=== PATIENT | male | born 1940 | race Caucasian/White ===

== ENCOUNTER 2016-08-25 10:10 | Inpatient (IN) | payer MEDICARE, MEDICAID ==
[2016-08-25] VITALS (10 sets, daily range): BP systolic 106–141; BP diastolic 66–89; PULSE 96–149; RESP 18–24; O2SAT 91–99
[~2016-08-25] VITALS: Ht 180.3 cm; Wt 104.9 kg
[~2016-08-25 10:10] MED LIST: ASPI-973 PO; ATOR10TA66 PO; CALC0.257 PO; CARV6.252 PO; DOCU250C2 PO; FLUO20CA25 PO; FLUT16SP NS; FRSM80T PO; FURO80TA83 PO; HYDR-3740 PO; MULT-1018 PO; OMEP20CA11 PO; POTA10TA12 PO; VIT1TABL83 PO; ZYL100 PO
--- NOTE | 2016-08-25 10:36 | ED.REPORT ---
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 Over the last 2 weeks he has experienced mildly increased shortness of breath. About [address] through dialysis yesterday the patient noticed increased shortness of breath and a sharp pain to the left side of his chest. These symptoms improved after he was placed on oxygen. His breathing is exacerbated with exertion or lying flat. He has also noticed a cough with yellow sputum and lower extremity swelling. He denies fever, chills or current chest pain. He started dialysis 6 months ago and has missed a few appointments since onset. He dialyzes Tuesdays, , and Tuesday. Nursing Notes Stated Complaint: SOB Chief Complaint: Respiratory Complaints Nursing Notes Reviewed: Yes Allergies: Coded Allergies: Cephalosporins (Verified Allergy, Severe, THROAT CLOSES, 08/25/16) Penicillins (Verified Allergy, Severe, Throat closes, 08/25/16) meperidine (Verified Allergy, Severe, hallucinations, 08/25/16) morphine (Verified Allergy, Severe, anaphylatic shock, 08/25/16) Sulfa (Sulfonamide Antibiotics) (Verified Allergy, Intermediate, Nausea, Vomiting, 08/25/16) cephalexin (Verified Allergy, Unknown, Nausea,Vomiting, 08/25/16) Scheduled Allopurinol (Allopurinol) 100 Mg Tablet 100 MG PO DAILY Aspirin (Aspirin) 81 Mg Tablet 81 MG PO DAILY Atorvastatin Calcium (Atorvastatin Calcium) 10 Mg Tablet 10 MG PO HS Cinacalcet (Sensipar) 30 Mg Tablet 30 MG PO DAILY Fluoxetine (Fluoxetine) 20 Mg Capsule 20 MG PO BID Furosemide (Furosemide) 80 Mg Tab 80 MG PO BID Multivitamin (Multi Vitamin Daily) 1 Each Tablet 1 EACH PO DAILY Omeprazole (Omeprazole) 20 Mg Capsule.dr 20 MG PO BID Potassium Chloride ER (Potassium Chloride ER) 10 Meq Tablet 10 MEQ PO BID TAKE WITH FOOD Sevelamer Carbonate (Renvela) 800 Mg Tablet 800 MG PO TIDWM Vit B Comp/C/FA/Iron/Vit E (Vitamin B Complex Tablet) 1 Each Tablet 1 EACH PO DAILY Scheduled PRN Diphenoxylate/Atropine (Diphenoxylate-Atrop 2.5-0.025) 2.5 Mg Tablet 1 EACH PO QID PRN PRN For Diarrhea or Loose Stool Fluticasone Propionate (Fluticasone Propionate Nasal) 16 Gm [place].susp 2 SPRAY NS DAILY PRN PRN For Congestion Hydrocodone-Acetaminophen 10-325 mg (Hydrocodone-Acetaminophen 10-325 mg) 1 Tab Tablet 1 EA PO QID PRN PRN For Pain General Time Seen by MD: 10:28 Chief Complaint Other (shortness of breath) Hx Obtained From: Patient, Spouse Arrived By: Wheelchair Sudden in Onset?: No Onset Occurred: More than a week ago... Symptom Duration: Since onset Location: : Chest Quality: Painful, Sharp Severity: Current: No pain currently Severity: Maximum: Moderate Recent Healthcare: No recent hospitalization, Recent doctor visit Similar Sx Previous: Yes Past Medical History Past Medical History 1. Hypertension. 2. Distant history of dyslipidemia. 3. Left ventricular diastolic congestive heart failure 4. Atrial fibrillation/sick sinus syndrome. On March 24, 2010, a [employer] generator model number [id number], serial number [id number], was implanted; right atrial lead Medtronic model number 5076, serial number [id number]; right ventricular lead Medtronic, serial number [id number]. 5. Obstructive sleep apnea confirmed by sleep study (September 29, 2009). 6. Status post gastric stapling for morbid obesity. 7. Stage III/IV chronic kidney disease. 8. History of nephrolithiasis 9. Chronic urinary retention secondary to urethral stricture subsequent to post transurethral resection of the prostate. Reports: Congestive heart failure, Hypertension Past Surgical History Cardiac cath in 2011 Gastric bypass Bilateral extracorporeal shockwave Lithotripy in 2002. Transurethral resection of prostate Cholecystectomy Appendectomy Bilateral knee surguries Shoulder surgery Neck fusion in . 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 Physical Exam Vital Signs Vital Signs Date Time Temp Pulse Resp B/P Pulse Ox O2 Delivery O2 Flow Rate FiO2 08/25/16 14:50 115 08/25/16 14:45 124 24 132/75 98 08/25/16 14:11 149 24 134/71 98 Room Air 08/25/16 10:56 130 24 126/66 98 Room Air 08/25/16 10:19 37.3 141 24 122/77 97 Room Air Initial VS: Reviewed Head / Eyes: Atraumatic, Normocephalic, PERRL Neck: Supple, Non-tender, Full range of motion Abdomen / GI: Soft, Non-tender, No guarding, No rebound, No distention Lymphatic: No lymphadenopathy Extremities: Vascular intact, Neuro intact Skin: Warm, Dry, No cyanosis Neurologic: Alert, Oriented, Nonfocal Psychiatric: Mood/affect normal, Behavior normal, Normal thought content General/Constitutional: Awake, Alert, Well appearing Mouth: Positive: Mucous membranes dry Respiratory / Chest: Breath sounds = bilat, No respiratory distress Coarse breath sounds. Bibasilar crackles. Cardiovascular: Heart sounds NL, No gallop, No murmurs, No rubs, Peripheral circulation NL, Pulses = bilaterally Heart Rate / Rhythm: Positive: Irregular rhythm, Tachycardia Lower Extremity / Pelvis / MS: Neurologic intact, Vascular intact No calf tenderness. Bilateral lower extremity pitting edema to above the knees. Edema is symmetric. No lateralizing swelling. : indwelling Leung catheter with light yellow urine. Interpretation & Diagnostics Lab Results Interpretation Result Diagram: 08/25/16 0945 08/25/16 0945 Test 08/25/16 09:45 08/25/16 12:36 White Blood Count 6.0th/mm3 (3.8-10.1) Red Blood Count 2.53mil/mm3 (4.40-5.80) Hemoglobin 8.9g/dL (13.8-17.2) Hematocrit 26.6% (41.0-50.0) Mean Corpuscular Volume 105.1fL (81-100) Mean Corpuscular Hemoglobin 35.2pg (27.0-35.0) Mean Corpuscular Hemoglobin Concent 33.5% (32.0-37.0) Red Cell Distribution Width 18.8% (12.3-15.4) Platelet Count 311bil/L (150-400) Neutrophils (%) (Auto) 74.5% (40-74) Lymphocytes (%) (Auto) 13.1% (14-46) Monocytes (%) (Auto) 11.9% (4-12) Eosinophils (%) (Auto) 0.3% (0-5) Basophils (%) (Auto) 0% (0-3) Prothrombin Time 12.0sec (8.1-12.5) Prothromb Time International Ratio 1.12ratio Sodium Level 132mEq/L (134-144) Potassium Level 4.0mEq/L (3.5-5.2) Chloride Level 96mEq/L (97-108) Carbon Dioxide Level 20mmol/L (18-29) Blood Urea Nitrogen 17mg/dL (8-27) Creatinine 2.58mg/dL (0.76-1.27) Estimat Glomerular Filtration Rate 26mL/min (>59) Glucose Level 100mg/dL (60-99) Calcium Level 8.0mg/dL (8.5-10.1) Magnesium Level 1.6mg/dL (1.6-2.6) Total Bilirubin 1.4mg/dL (0.0-1.2) Aspartate Amino Transf (AST/SGOT) 17U/L (0-50) Alanine Aminotransferase (ALT/SGPT) 11U/L (0-44) Alkaline Phosphatase 301U/L (25-160) Troponin T < 0.010ug/L (0.0-0.011) Pro-B-Type Natriuretic Peptide 5301pg/mL (0-486) Total Protein 6.2g/dL (6.4-8.4) Albumin 3.8g/dL (3.4-5.0) Thyroid Stimulating Hormone (TSH) 2.820uIU/mL (0.450-4.500) Free Thyroxine 1.25ng/dL (0.82-1.77) Phosphorus Level 3.4mg/dL (2.5-4.9) Procalcitonin 0.12ng/mL (See Comment) ECG Interpretation ECG Interpretation: Atrial fibrillation with a rate of [address] segment elevation No T wave abnormalities When compared to prior he is increasingly tachycardia though there are no other acute changes present. Time: 10:50 Interpreted by: ED physician X-Ray Chest Interpretation Chest Xray Interpretation: IMPRESSION: 1. Right basilar pneumonia with small right pleural effusion. Continued plain film surveillance is recommended to ensure resolution, and to exclude underlying or central malignancy. Dictated by: Aidee Mccarty M.D. on 08/25/2016 at 11:23 Interpretation / Wet Read by: Interpret - Radiologist Re-Eval/Medical Decision Med Decision/Clinical Course The patient is a 76 year old male with history of hypertension, congestive heart failure, urinary retention with a chronic indwelling Leung catheter, chronic kidney disease on hemodialysis, obstructive sleep apnea, and atrial fibrillation/sick sinus syndrome s/p pacemaker, who presents to the emergency department complaining of shortness of breath that worsened throughout the night. EKG demonstrated Afib with rapid ventricular response. He was hemodynamically stable. Chest x-ray showed possible right basilar pneumonia with small right pleural effusion and pulmonary edema. LABS: CBC: no leukocytosis, hct 26.6 at baseline, CMP: renal function at baseline, alkaline phosphatase 301, negative troponin, BNP 5301 Overall presentation seems most consistent with volume overload in s/o CHF, in dialysis dependent pt. He was treated with 80 mg IV Lasix and 10 mg IV diltiazem, he had improvement in his rate remained hemodynamically stable. Radiologist interpretation mentioned possible right lower lobe pneumonia however in my assessment of his chest x-ray and overall critical picture this seems more consistent with a pleural effusion and I am unconvinced of bacterial pneumonia. Therefore, I have opted to withhold antibiotics at this time. He admits to missing multiple dialysis appointments I suspect that he is becoming increasingly volume overloaded as a result of this. I feel that he would likely benefit from hemodialysis and ongoing diuresis. He was admitted to the hospitalist service for further management in stable condition. Source of Hx: Old records Time of Eval: 11:14 Re-Evaluation/Progress Note: Discussed plan for admission with the patient and his . All questions were addressed. Consultation : Referral / Consult Name: Jose Alberto Benz MD Consulted With: Hospitalist Requested Call at: 11:31 Call Returned at: 12:01 [facility] Worker: Will see patient, Agrees with eval, Agrees with plan, Accepts admit Counseled Regarding: Diagnosis, Lab results, Need for admission Discharge & Departure Primary Impression: CHF (congestive heart failure) Congestive heart failure type: unspecified congestive heart failure type Congestive heart failure chronicity: unspecified congestive heart failure chronicity Qualified Code: I50.9 - Heart failure, unspecified Additional Impressions: Fluid overload Hypervolemia type: unspecified Qualified Code: E87.70 - Fluid overload, unspecified ESRD (end stage renal disease) Pneumonia Pneumonia type: due to unspecified organism Laterality: right Lung location : lower lobe of lung Qualified Code: J18.9 - Pneumonia, unspecified organism Pleural effusion Disposition: ADMITTED TO HOSPITAL Discharge Condition All VS Reviewed: Yes Condition: Stable Referrals: Siddharth Torres MD (PCP) Crit Care Except Billable Proc Time Spent: 135-164 minutes Services Performed: Patient management by me, Time spent at bedside, Reviewing test results, Reviewing imaging, Discussing patient care, Documentation in record, Time with fam/surrogate Scribe Attestation Portions of this note were transcribed by Tasha Navas. I, Dr. Dahl personally performed the history, physical exam and medical decision-making; I reviewed and confirmed the accuracy of the information in the transcribed note. Signed by: Will Wagoner, 08/25/2016 and 1440. copies to: Siddharth Torres MD, Beck O MD Aug 25, 2016 10:36 Tasha Navas Aug 25, 2016 10:57
[2016-08-25 11:04] LABS: BASOPHILS % (AUTO) 0 % (0-3); EOSINOPHILS % (AUTO) 0.3 % (0-5); MONOCYTES % (AUTO) 11.9 % (4-12); Mean Corpuscular Hemoglobin 35.2 pg (27.0-35.0); Mean Corpuscular Volume 105.1 fL (81-100); NEUTROPHILS % (AUTO) 74.5 % (40-74); Platelet Count 311 bil/L (150-400)
[2016-08-25] MEDS ORDERED: Furosemide 10 mg/mL 10 mL Inj IVPUSH ONE (11:20)
[2016-08-25] MEDS ORDERED: Alum-Mag Hydrox-Simeth 30 mL Suspension PO PRN (11:20)
[2016-08-25] MEDS ORDERED: Ondansetron 2 mg/mL 2 mL Inj IVPUSH PRN (11:20)
[2016-08-25 11:21] LABS: INR 1.12 ratio
--- NOTE | 2016-08-25 11:25 | DRSVH ---
PROCEDURE: X-RAY CHEST ONE VIEW, PORTABLE ([id number]) INDICATIONS: SHORTNESS OF BREATH TECHNIQUE: One view of the chest was acquired. COMPARISON: [facility], CR, XR CHEST 2V AP/PA AND LAT, 03/03/2016, 10:33 AM. [facility], CR, XR CHEST 1VW (PORTABLE), 06/19/2015, 12:17. [facility], CR, CHEST 1VW (PORTABLE), 10/10/2014, 0:14. [facility], CR, CHEST 1VW (PORTABLE), 07/10/2014, 15:41. FINDINGS: Surgical changes and devices: Left-sided pacer. Low anterior cervical fusion has been performed. Lungs and pleura: No pneumothorax. Small right pleural effusion. Moderate right basilar airspace [place]. Mediastinum: Mediastinal contours appear normal. Heart size is normal. Bones and chest wall: No suspicious bony lesions. Overlying soft tissues appear unremarkable. IMPRESSION: 1. Right basilar pneumonia with small right pleural effusion. Continued plain film surveillance is re commended to ensure resolution, and to exclude underlying or central malignancy. Dictated by: Aidee Mccarty M.D. on 08/25/2016 at 11:23 Approved by: Aidee Mccarty M.D. on 08/25/2016 at 11:23
[2016-08-25 11:40] LABS: Magnesium 1.6 mg/dL (1.6-2.6)
[2016-08-25 11:44] LABS: TROPONIN T < 0.010 ug/L (0.0-0.011)
[2016-08-25] MEDS ORDERED: Polyethylene Glycol (PEG) 17 Gm Powder PO PRN (12:30)
[2016-08-25] MEDS ORDERED: Diltiazem 5 mg/mL 5 mL Inj IVPUSH ONE ×2 (12:30→16:50)
[2016-08-25] MEDS ORDERED: ZYL100 PO (15:07)
[2016-08-25] MEDS ORDERED: LOM PO (15:11)
[2016-08-25] MEDS ORDERED: SEVE800T7 PO (15:11)
[2016-08-25] MEDS ORDERED: CINA30TA PO (15:11)
--- NOTE | 2016-08-25 15:14 | PCM.CHPMED ---
Subjective Date of Service: Aug 25, 2016 Provider requesting consult: Jose Alberto Benz MD Primary Physician: Admitting Physician: Primary Care Physician: Siddharth Torres MD Attending Physician: Chief Complaint: Chief Complaint: NEPHROLOGY CONSULTATION ESRD on HD History of Present Illness: This is a 76 year old man with past medical history significant for hypertension , HFpEF, chronic urinary retention with a chronic indwelling suprapubic Leung catheter, JAMIE, Atrial fibrillation s/p pacemaker placement, as well as ESRD on HD who is presenting with shortness of breath and lower extremity edema x 2 weeks. The nephrology service is consulted for management of the patient's ESRD. The etiology of the ESRD is uncertain but likely due to hypertensive nephropathy. The patient has started HD about 6 months ago and has missed a few days. He missed a dialysis day last week on Tue. His normal dialysis schedule is TThS. His tread builder is Dr. Burroughs. Over the last 2 weeks the patient has noticed progressively worse bilateral lower extremity edema and has not been able to lay flat due to shortness of breath. He normal does not have any orthopnea. His most recent ECHO showed an EF of 55% with moderate and E/E' 15.2. The patient normally makes about 1.2-1.5 L of urine as measured by his Leung. In the ED he was saturating 98% on room air. He also complains of a cough with yellow sputum but denies any fevers or chills but does note myalgias and arthralgias. Review of Systems: ROS is negative except as noted above in the HPI. PMH Past Medical History 1. Hypertension. 2. Distant history of dyslipidemia. 3. Left ventricular diastolic congestive heart failure 4. Atrial fibrillation/sick sinus syndrome. On March 24, 2010, a [employer] generator model number [id number], serial number [id number], was implanted; right atrial lead Medtronic model number 5076, serial number [id number]; right ventricular lead Medtronic, serial number [id number]. 5. Obstructive sleep apnea confirmed by sleep study (September 29, 2009). 6. Status post gastric stapling for morbid obesity. 7. Stage III/IV chronic kidney disease. 8. History of nephrolithiasis 9. Chronic urinary retention secondary to urethral stricture subsequent to post transurethral resection of the prostate. Bedside Blood Glucose: 98 Surgical History Cardiac cath in 2011 Gastric bypass Bilateral extracorporeal shockwave Lithotripy in 2002. Transurethral resection of prostate Cholecystectomy Appendectomy Bilateral knee surgeries Shoulder surgery Neck fusion in . Home Medications Scheduled Allopurinol (Allopurinol) 100 Mg Tablet 50 MG PO DAILY Aspirin (Aspirin) 81 Mg Tablet 162 MG PO DAILY Atorvastatin Calcium (Atorvastatin Calcium) 10 Mg Tablet 10 MG PO HS Calcitriol (Rocaltrol) 0.25 Mcg Capsule 1 MCG PO DAILY Take 2 0.5 mcg tablets once daily. Carvedilol (Carvedilol) 6.25 Mg Tablet 6.25 MG PO BID Fluoxetine (Fluoxetine) 20 Mg Capsule 20 MG PO BID Furosemide (Furosemide) 80 Mg Tab 80 MG PO QAM Furosemide (Lasix) 80 Mg Tablet 80 MG PO QPM Multivitamin (Multi Vitamin Daily) 1 Each Tablet 1 EACH PO DAILY Omeprazole (Omeprazole) 20 Mg Capsule.dr 20 MG PO BID Potassium Chloride ER (Potassium Chloride ER) 10 Meq Tablet 10 MEQ PO DAILY TAKE WITH FOOD Vit B Comp/C/FA/Iron/Vit E (Vitamin B Complex Tablet) 1 Each Tablet 1 EACH PO DAILY Scheduled PRN Docusate Sodium (Docusate Sodium) 250 Mg Capsule 250 MG PO BID PRN PRN For Constipation Fluticasone Propionate (Fluticasone Propionate Nasal) 16 Gm [place].susp 2 SPRAY NS DAILY PRN PRN For Congestion Hydrocodone-Acetaminophen 10-325 mg (Hydrocodone-Acetaminophen 10-325 mg) 1 Tab Tablet 1 TAB PO QID PRN PRN For Pain Allergies: Coded Allergies: Cephalosporins (Verified Allergy, Severe, THROAT CLOSES, 08/25/16) Penicillins (Verified Allergy, Severe, Throat closes, 08/25/16) meperidine (Verified Allergy, Severe, hallucinations, 08/25/16) morphine (Verified Allergy, Severe, anaphylatic shock, 08/25/16) Sulfa (Sulfonamide Antibiotics) (Verified Allergy, Intermediate, Nausea, Vomiting, 08/25/16) cephalexin (Verified Allergy, Unknown, Nausea,Vomiting, 08/25/16) Family History Family History No kidney disease Social History Hx Alcohol Use: NoHx Substance Use: NoHx Tobacco Use: Yes (chew 1 can q 4 day ) Smoking Status: Former Smoker Exam Vital Signs Vital Sign - Last Date Time Temp Pulse Resp B/P Pulse Ox O2 Delivery O2 Flow Rate FiO2 08/25/16 14:50 115 08/25/16 14:45 24 132/75 98 08/25/16 14:11 Room Air 08/25/16 10:19 37.3 General: Alert, Oriented X3, Cooperative, Mild Distress Head: Normal Eyes: PERRLA, EOMI Mouth: Mucous Membr Moist/[place] Chest & Lungs: Coarse breath sounds Cardiovascular: Normal S1, Other (tachycardic, crescendo-decrescendo murmur) Abdomen: Tender (mildly), Non-distended, Benign, No masses, Soft, Obese Genitourinary: Leung Present (clear yellow urine, ~200 cc) Extremities: Edema (pitting, bilateral legs) Neurological: Grossly Neurologically Intact, Cranial Nerves 2-12 Intact, Normal Speech Lab and Diagnostics Result Diagram: 08/25/16 0945 08/25/16 0945 X-Rays, CTs and MRIs CXR with evidence of fluid overload and pulmonary edema. Cephalization noted, fluid in the fissure noted. Increased interstitial markings and R sided pleural effusion. Assessment & Plan Assessment This is a 76 year old man with past medical history significant for hypertension , HFpEF, chronic urinary retention with a chronic indwelling suprapubic Leung catheter, JAMIE, Atrial fibrillation s/p pacemaker placement, as well as ESRD on HD who is presenting with shortness of breath and lower extremity edema x 2 weeks. ESRD on HD -We will go ahead and dialyze the patient today for a 2 hr session and take UF off -He is obviously fluid long and this is the likely etiology of his SOB Hypertension -Continue home medications Hypervolemic hyponatremia -Secondary to inadequate dialysis Macrocytic anemia -Chronic -Macrocytosis worsening -Will order iron studies, folate and B12 Thank you for allowing us to participate in the care of this patient. We will follow along with you. Problems: Sonal Martinez DO Aug 25, 2016 15:14 Lino Rahman MD Aug 26, 2016 15:52
[2016-08-25] MEDS ORDERED: levoFLOXacin Inj 750 MG in IV Premix 1 EACH IV SCH (15:30)
--- NOTE | 2016-08-25 18:31 | PCM.HPMED ---
Subjective Date of Service Aug 25, 2016 Primary Provider: Admitting Physician: Jose Alberto Benz MD Primary Care Physician: Siddharth Torres MD Attending Physician: Jose Alberto Benz MD Admit Status: From the Emergency Department, Admit to Red Team Chief Complaint: Cough and dyspnea/1 day Orthopnea/one day History of Present Illness: 76-year-old gentleman with past medical history of diastolic CHF, atrial fibrillation not on anticoagulation, hyperlipidemia, sick sinus syndrome status post pacemaker, hypertension,JAMIE,ESRD on HD TTS for the last 6 months, indwelling suprapubic catheter, history of recurrent nephrolithiasis came to the emergency room due to dyspnea, cough and orthopnea of one day. Patient states he had his usual dialysis yesterday and went home. He usually has some dyspnea on day of dialysis which resolves after dialysis but yesterday continued to have dyspnea after dialysis. He had cough productive of yellowish sputum since yesterday. He also had orthopnea of 3 pillow and was unable to lie flat last night. He usually uses one pillow. He did not miss dialysis for the last 1 week. He missed a session of dialysis the week prior. He had dialysis yesterday and his usual 2+ fluid was removed. He continues to make urine. Did not notice any change in urine output. He takes Lasix 80 mg by mouth twice a day. Did not miss any dose He has history of atrial fibrillation was initially on warfarin but discontinued due to multiple bleeding episodes during dialysis access. Currently on aspirin 81 mg daily. Not on any beta dyllan or CCB. He denies fever. Denies chest pain. Denies palpitation ED course : Tachypneic at 24, heart rate 141, afebrile, BP 122/6 0.7, saturating and 97% on RA Hemoglobin 8.9, sodium 132, K 4, bicarbonate 20, Ten Sleep 17, creatinine 2.58, troponins negative, TB 1.4, alkaline phosphatase 31 EKG rapid A. fib at 126, chest x-ray right basilar pneumonia with right pleural effusion An dose of Lasix IV given. Hospitalist service requested for fluid overload. Review of Systems: A comprehensive review of systems performed, and positives and negatives included in history of present illness Allergies Coded Allergies: Cephalosporins (Verified Allergy, Severe, THROAT CLOSES, 08/25/16) Penicillins (Verified Allergy, Severe, Throat closes, 08/25/16) meperidine (Verified Allergy, Severe, hallucinations, 08/25/16) morphine (Verified Allergy, Severe, anaphylatic shock, 08/25/16) Sulfa (Sulfonamide Antibiotics) (Verified Allergy, Intermediate, Nausea, Vomiting, 08/25/16) cephalexin (Verified Allergy, Unknown, Nausea,Vomiting, 08/25/16) Home Medications Aspirin 81 mg daily Fluoxetine 20 mg twice daily B complex daily KCl 10 meq 2 times daily Renelva 800 mg 3 times daily with meals Omeprazole 20 mg by mouth. 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 patient in hospital bed. 45 degree elevated HEENT: Head is normocephalic atraumatic, Pupils equal and reactive, extraocular movements intact, Lungs right lung basilar crackles and rhonchi Heart rapid A. fib, rate 146 at time of examination Abdomen soft nontender without hepatosplenomegaly Extremities pulses are present dorsalis pedis posterior tibialis and radial. Right arm AV fistula with brui Psych alert and oriented to person place and time Neuro cranial nerves II through XII are grossly intact Lymph: There is no lymphadenopathy appreciated in the cervical supra infraclavicular regions : Suprapubic catheter draining clear urine Lab and Diagnostics Result Diagram: 08/25/16 0945 08/25/16 0945 X-Rays, CTs and MRIs Chest x-ray IMPRESSION: 1. Right basilar pneumonia with small right pleural effusion. Continued plain film surveillance is recommended to ensure resolution, and to exclude underlying or central malignancy. Dictated by: Aidee Mccarty M.D. on 08/25/2016 at 11:23 12-lead ECG rapid afib rate 126 Assessment & Plan 76-year-old gentleman with past medical history of diastolic CHF, atrial fibrillation not on anticoagulation, hyperlipidemia, sick sinus syndrome status post pacemaker, hypertension,JAMIE,ESRD on HD TTS for the last 6 months, indwelling suprapubic catheter, history of recurrent nephrolithiasis came to the emergency room due to dyspnea, cough and orthopnea of one day. # Dyspnea,acute ,poa -Multifactorial( worsening diastolic CHF due to rapid A. fib/possible fluid overload, suspected pneumonia) -Rate controlled Cardizem drip, started empiric antibiotic pending more data, consulted nephrology and he will get dialysis # Afib with RVR ,acute -Patient rate controlled without medications at baseline -Gave 2 doses of Cardizem push, HR not controlled,will start Cardizem drip at 7.5mg /h. Titrate to keep heart rate < 100 -not a candidate for anticoagulation due to history of bleeding. Continue aspirin -Transition to BB upon discharge -TFT WNL ,troponin negative #Acute on chronic Diastolic CHF due to rapid Afib -Rate control as above,HD as above, continue home Lasix 80 mg by mouth twice a day -Daily weights,I/O - will consider echocardiogram once heart rate is controlled # suspected pneumonia -Patient came with productive cough. Afebrile, no leukocytosis, procalcitonin 0.12,cxr suspected right lower lobe pneumonia. Rhonchi on right lower chest -Unclear if pneumonia has triggered rapid afib -will continue with azithromycin and ceftriaxone for today. Blood and urine culture sent. Will repeat Procalcitonin and stop antibiotics if no further evidence of infection #ESRD on HD -he will get extra HD today -Continue home Lasix,Renelva,sensipar -Consulted nephrology # macrocytic anemia -multifactorial ( anemia of ESRD -iron panel,b12,folate requested by nephrology # Elevated Tbili and alkaline phos -possibly due to liver congestion -will monitor ,will consider imaging if remains high Chronic medical issues # indwelling suprapubic catheter,recently changed .u/a, urine culture requested #gout, continue allopurinol #JAMIE not on CPAP, address outpatient # SSS s/p PPM,stable Discussed CODE STATUS, he is full code Patient admitted under inpatient status with expected length of stay > 2 midnights for severity of present symptoms, complexities of treatment plan and risk for adverse events Time spent 55 minutes copies to: Siddharth Torres MD, Melaku MD Aug 25, 2016 18:31
--- NOTE | 2016-08-25 18:52 | NUR ---
sent directly to dialysis from ER plan was to admit to room 246-1 however his HR began to increase again, 130-140s, Dr Benz wanted to start Diltiazem gtt, so gave Cardizem 10mg while on dialysis, after receiving 10mg IV his rate decreased to 110s again. but quickly increased back to 120s. He will transfer to room 2009 from dialysis and be started on Diltiazem gtt for rate control
--- NOTE | 2016-08-25 19:00 | NUR ---
Dialysis note: 2 hrs 45 min PUF. 4000 ml net UF. Left upper arm fistula; had access problems, Dr Nelson notified. Pls see DTR for VS details. Qb 200-250. No heparin given. O2 @ 2L via NC on. Tolerated tx. Fistula needle sites clotted w/in 10 min.
[2016-08-25] MEDS: Diltiazem Inj 125 MG in 0.9% Sodium Chloride 100 ML, Pharmacy To Mix 1 EA IV SCH (19:58)
[2016-08-25] MEDS: HYDROcodone-APAP 10-325 mg PO PRN (21:27)
[2016-08-26] VITALS (13 sets, daily range): BP systolic 96–112; BP diastolic 50–74; PULSE 80–124; RESP 13–21; O2SAT 97–100
[2016-08-26] MEDS: levoFLOXacin Inj 750 MG in IV Premix 1 EACH IV SCH (01:36)
[2016-08-26 03:14] LABS: BASOPHILS % (AUTO) 0 % (0-3); EOSINOPHILS % (AUTO) 0.1 % (0-5); MONOCYTES % (AUTO) 10.6 % (4-12); Mean Corpuscular Volume 110.5 fL (81-100); NEUTROPHILS % (AUTO) 67.7 % (40-74); Platelet Count 237 bil/L (150-400)
[2016-08-26] MEDS: HYDROcodone-APAP 10-325 mg PO PRN (03:18)
[2016-08-26] MEDS: Benzocaine-Menthol Lozenge 2/Pkg PO PRN ×2 (03:54→11:58)
[2016-08-26 05:11] LABS: APPEARANCE,URINE CLOUDY (CLEAR,HAZY); COLOR,URINE YELLOW (YELLOW); OCCULT BLOOD,URINE SMALL (NEGATIVE); PH,URINE 7.5 (5.0-8.0); UROBILINOGEN,URINE NORMAL (NORMAL)
[2016-08-26 05:12] LABS: ICTOTEST,URINE POSITIVE (Negative)
[2016-08-26 05:16] LABS: Magnesium 1.6 mg/dL (1.6-2.6)
[2016-08-26] MEDS: Pantoprazole 40 mg ER24 Tablet PO SCH (05:51)
--- NOTE | 2016-08-26 07:31 | NUR ---
Transfer to [facility] Pt transferred to [facility] room 2008 at approx. 2000; report received from Vivian Dennis; all belongings transferred with patient. Home medications reviewed and sent to pharmacy. Diltiazem gtt in place at 7.5mg for afib/RVR 120s; tele throughout shift afib 80s. Pt reports chronic pain to back and exacerbated by beds at 7/10 to assessment, Vicodin Q4H given x2, pt reports relief upon reassessment. UA sent. PCR order obtained for pt's ongoing diarrhea, no further diarrhea after order placed. Pt educated to purpose of stool testing, states "Oh, diarrhea is normal for me. I had a gastric bypass surgery 20 some years ago, and then had it reversed, and then had my gut stapled, so it's normal for me." Pt educated to rationale for r/o C.diff, verbalized understanding. MP30 in place, VSS, 2L NC applied this AM per pt request, SPO2 approx. 98%.
[2016-08-26] MEDS ORDERED: Non-Formulary Medication (Vit B Comp/C/FA/Iron/Vit E (Vitamin B Complex Tablet) 1 EACH) PO SCH (08:30)
[2016-08-26] MEDS: Diltiazem Inj 125 MG in 0.9% Sodium Chloride 100 ML, Pharmacy To Mix 1 EA IV SCH (12:34)
[2016-08-26] MEDS: 0.9% Sodium Chloride 250 ML IV SCH (15:10)
[2016-08-26] MEDS ORDERED: 0.9% Sodium Chloride 1,000 ML ONE (16:04)
--- NOTE | 2016-08-26 16:08 | PCM.PNMED ---
Subjective Date of Service Aug 26, 2016 Subjective He is seen during HD. feeling better overall. Hb 7.0, 2 units of PRBC will be transfused while on HD. Exam Vital Signs Vital Sign - Last Date Time Temp Pulse Resp B/P Pulse Ox O2 Delivery O2 Flow Rate FiO2 08/26/16 12:03 36.7 83 20 108/65 99 Nasal Cannula 2.00 Intake and Output 08/25/16 08/25/16 08/26/16 Cumulative From/Thru 15:00 23:00 07:00 08/25/16 10:19 - 08/26/16 06:01 Intake Total 1122 ml 1122 ml Output Total 200 ml 4000 ml 800 ml 5000 ml Balance -200 ml -4000 ml 322 ml -3878 ml Intake Oral 900 ml 900 ml IV Total 222 ml 222 ml Output Urine Total 200 ml 800 ml 1000 ml Ultrafiltrate 4000 ml 4000 ml # Bowel Movements 3 3 Exam General: Alert, Oriented X3, Cooperative, NAD, lying in bed comfortably. Head: Normal Eyes: PERRLA, EOMI Mouth: Mucous Membr Moist/[place] Chest & Lungs: Coarse breath sounds Cardiovascular: Normal S1, irregular rhythm Abdomen: nontender, Non-distended, Benign, No masses, Soft, Obese Genitourinary: suprapubic catheter placement Extremities: 2+ Edema (pitting, bilateral legs) Neurological: Grossly Neurologically Intact, Cranial Nerves 2-12 Intact, Normal Speech Lab and Diagnostics Result Diagram: 08/26/16 0300 08/26/16 0430 X-Rays, CTs and MRIs Chest x-ray IMPRESSION: 1. Right basilar pneumonia with small right pleural effusion. Continued plain film surveillance is recommended to ensure resolution, and to exclude underlying or central malignancy. Dictated by: Aidee Mccarty M.D. on 08/25/2016 at 11:23 12-lead ECG rapid afib rate 126 Assessment & Plan This is a 76 year old man with past medical history significant for hypertension , HFpEF, chronic urinary retention with a chronic indwelling suprapubic Leung catheter, JAMIE, Atrial fibrillation s/p pacemaker placement, as well as ESRD on HD who is presenting with shortness of breath and lower extremity edema x 2 weeks. 1. ESRD on HD TTS. He had only UF yesterday 4.2 L. 4hr, 3K, 35HCO3, DFR 600, poor blood flow, UF 3-4L. Revaclear,left AVF plan: fistulogram at 1200 08/27/16 2. Fluid overload. improving 3. Hypertension, volume related, improved. 4. Hypervolemic hyponatremia, Na 2 g per day, fluid restriction 1-1.5L per day if possible. 5. Macrocytic anemia, normal folate, vitB12 level. Low serum iron, low TIBC, low TSat, high ferritin. possible combined ANDRES and anemia of CKD. will give blood transfusion today with HD. Aranesp injection in am. 6. Afib with RVR, rate controlled. Lino Rahman MD Aug 26, 2016 16:08
--- NOTE | 2016-08-26 17:54 | NUR ---
Dialysis, Blood Transfusion Dialysis - He is currently receiving dialysis in his room. Blood Transfusion - His H/H this AM was 7.0/22.1. Asymptomatic other than appearing pale. Notified the MDs during rounds at [address] Sethi early to mid-afternoon. Only new orders at that time were to guaiac stools and continue to monitor. Once Nephrology has seen him Dr. Sethi ordered a blood type and cross and two units of PRBC. The units are currently being administered by the dialysis nurse with the first being started at 1700. Care continues. Addendum: 08/26/16 at 1803 by ELMIRA ENRIQUE RN He has been room air (98%) most of the day.
--- NOTE | 2016-08-26 19:30 | NUR ---
Dialysis note: 4 hrs tx. 4800 ml UF (4000 ml net + 800 ml for blood volume). Left upper arm fistula. Pls see DTR for VS details. Qb 300. No heparin given. O2 @ 2L via NC on. 2 units PRBC given with no problems. Tolerated tx, slept at intervals. Fistula needle sites clotted w/in 10 min.
--- NOTE | 2016-08-26 22:49 | PCM.PNMED ---
Subjective Date of Service Aug 26, 2016 Subjective 76-year-old gentleman with past medical history of diastolic CHF, atrial fibrillation not on anticoagulation, hyperlipidemia, sick sinus syndrome status post pacemaker, hypertension,JAMIE,ESRD on HD TTS for the last 6 months, indwelling suprapubic catheter, history of recurrent nephrolithiasis came to the emergency room due to dyspnea, cough and orthopnea of one day. Patient states he had increase orthopnea overnight. He had dialysis yesterday and his usual 2+ fluid was removed. He continues to make urine. He has history of atrial fibrillation was initially on warfarin but discontinued due to multiple bleeding episodes during dialysis access. Overnight Events. No acute events overnights. Mr. Jaswant Perez is resting in bed comfortably and in no acute distress. He reports feeling okay. The patient denies headache, dizziness, sore throat, cough , chest pain, shortness of breath, abdominal pain, nausea, vomiting, constipation, and diarrhea. The patient is voiding and eliminating without difficulty. The patient is ambulating without difficulty. Exam Vital Signs Vital Sign - Last Date Time Temp Pulse Resp B/P Pulse Ox O2 Delivery O2 Flow Rate FiO2 08/26/16 18:22 37.0 92 20 105/74 08/26/16 12:03 99 Nasal Cannula 2.00 Intake and Output 08/25/16 08/25/16 08/26/16 Cumulative From/Thru 15:00 23:00 07:00 08/25/16 10:19 - 08/26/16 06:01 Intake Total 1122 ml 1122 ml Output Total 200 ml 4000 ml 800 ml 5000 ml Balance -200 ml -4000 ml 322 ml -3878 ml Intake Oral 900 ml 900 ml IV Total 222 ml 222 ml Output Urine Total 200 ml 800 ml 1000 ml Ultrafiltrate 4000 ml 4000 ml # Bowel Movements 3 3 Exam General: No acute distress, well-developed, well-nourished, appropriately interactive HEENT: Normocephalic, atraumatic. External ears without defect. Pupils equal, round, and reactive to light and accommodation. Anicteric sclerae, moist conjunctivae, and no lid lag. Oropharynx free of erythema and cobble stoning with moist mucosa. Neck: Supple with full range of motion. No jugular venous distension. No bruits. No lymphadenopathy or thyromegaly. Cardiovascular: Regular rate and rhythm with no murmurs, rubs, or gallops appreciated Pulmonary: Clear to auscultation bilaterally with no crackles, wheezes, or rhonchi. Normal respiratory effort with no use of accessory muscles. Abdomen: Bowel tones present. Soft, nontender, nondistended. No hepatosplenomegaly or masses appreciated. Extremities: No clubbing, cyanosis, edema, or lymphadenopathy appreciated. Skin: Normal temperature, turgor, and texture; no rash, ulcers, or subcutaneous nodules appreciated. Neurological: Cranial nerves grossly intact. Normal muscle strength, tone, and bulk. Reflexes, coordination, and sensory function within normal limits. No known gait impairment. Psychiatric: Normal mood and affect. Alert and oriented to person, place, and time. IVs and Medications Medications Reviewed: Medications were reviewed in detail Lab and Diagnostics Result Diagram: 08/26/16 0300 08/26/16 0430 X-Rays, CTs and MRIs Chest x-ray IMPRESSION: 1. Right basilar pneumonia with small right pleural effusion. Continued plain film surveillance is recommended to ensure resolution, and to exclude underlying or central malignancy. Dictated by: Aidee Mccarty M.D. on 08/25/2016 at 11:23 12-lead ECG rapid afib rate 126 Assessment & Plan 76-year-old gentleman with past medical history of diastolic CHF, atrial fibrillation not on anticoagulation, hyperlipidemia, sick sinus syndrome status post pacemaker, hypertension,JAMIE,ESRD on HD TTS for the last 6 months, indwelling suprapubic catheter, history of recurrent nephrolithiasis came to the emergency room due to dyspnea, cough and orthopnea of one day. 1. Acute Dyspnea, present on admission, active. - Multifactorial( worsening diastolic CHF due to rapid A. fib/possible fluid overload, suspected pneumonia) - Possible Fluid overload consider ordering ECHO. - Rate controlled Cardizem drip, started empiric antibiotic pending more data, consulted nephrology and he will get dialysis - Will continue with azithromycin and ceftriaxone for today.and stop antibiotics if no further evidence of infection - CXR per above. - Viral respiratory PCR - pending. - Strep pneumo, legionella AG pending. - Sputum cx pending. - Procalcitonin pending. 2. End Stage renal disease, present on admission, Active. - Currently on HD Tu, th, Tue schedule. - Fistulogram at 1200 08/27/16 - Continue home Lasix,Renelva,sensipar - Consulted nephrology 3. Macrocytic anemia, - likely secondary to bone marrow suppression. - Normal folate, vitB12 level. - Low serum iron, low TIBC, low TSat, high ferritin. - Possible combined ANDRES and anemia of CKD. - Blood transfusion today with HD. 2 units PRBC's. - Aranesp injection in am. 4. Elevated Tbili and alkaline phos, present on admission. Active. - Possibly due to liver congestion - Will monitor ,will consider imaging if remains high 5. Acute on chronic Diastolic CHF due to rapid Afib, present on admission, active. - Rate control as above,HD as above, continue home Lasix 80 mg by mouth twice a day - Daily weights,I/O - will consider echocardiogram once heart rate is controlled 6. Hypertension, present on admission. Improving. 7. Hypervolemic hyponatremia, present on admission. Active. - Na 2 g per day, fluid restriction 1-1.5L per day if possible. 8. Acute Afib with RVR, present on admission, active. - Patient rate controlled without medications at baseline - Gave 2 doses of Cardizem push, HR not controlled,will start Cardizem drip at 7.5mg /h. Titrate to keep heart rate < 100 - not a candidate for anticoagulation due to history of bleeding. Continue aspirin - Transition to BB upon discharge - TFT WNL ,troponin negative Chronic medical issues indwelling suprapubic catheter,recently changed - UA pending. Gout, continue allopurinol Acetaminophen for mild pain when necessary. Bowel regimen Senna and MiraLAX scheduled and PRN. Zofran when necessary for nausea and vomiting. SubQ heparin held for now. SCDs in place. High-risk medications: Disposition: likely here for 1-2 more days. Will discharge home. Pain Evaluation: Adequate Pain Control Attending Statement The patient was seen and examined together with Dr. Vera on 08/26/2016 and I agree with the history, exam and plan as outlined in the note above. . ALYSON VERA DO Aug 26, 2016 19:23 Fabrice Mike MD Aug 27, 2016 14:23
[2016-08-27] VITALS (19 sets, daily range): BP systolic 98–124; BP diastolic 48–78; PULSE 85–108; RESP 16–25; O2SAT 93–97
[2016-08-27] MEDS: HYDROcodone-APAP 10-325 mg PO PRN ×2 (03:32→17:47)
[2016-08-27 04:06] LABS: BASOPHILS % (AUTO) 0.2 % (0-3); EOSINOPHILS % (AUTO) 0.4 % (0-5); MONOCYTES % (AUTO) 14.7 % (4-12); Mean Corpuscular Hemoglobin 34.3 pg (27.0-35.0); Mean Corpuscular Volume 102.5 fL (81-100); NEUTROPHILS % (AUTO) 62.8 % (40-74); Platelet Count 260 bil/L (150-400)
--- NOTE | 2016-08-27 05:25 | NUR ---
Pain / Telemetry Pt c/o 01/05 pain this AM x1, [place] administered with relief upon reassessment. Pt able to rest throughout shift, calls for needs. Tele afib 90s throughout shift, diltiazem gtt in place at 7.5ml/hr. VSS.
[2016-08-27] MEDS: Diltiazem Inj 125 MG in 0.9% Sodium Chloride 100 ML, Pharmacy To Mix 1 EA IV SCH (05:58)
[2016-08-27] MEDS: Pantoprazole 40 mg ER24 Tablet PO SCH (06:02)
[2016-08-27] MEDS ORDERED: Magnesium Sulf 2 Gm/50mL Water 2 GM in IV Premix 1 EACH IV ONE (07:50)
[2016-08-27] MEDS ORDERED: Darbepoetin Alfa 60 mCg/0.3 mL Inj IV ONE (08:30)
[2016-08-27] MEDS ORDERED: Diltiazem CD 120 mg ER24 Capsule PO ONE (09:10)
--- NOTE | 2016-08-27 10:06 | NUR ---
gave verbal consent to PATRICK
--- NOTE | 2016-08-27 10:06 | PCM.PNMED ---
Subjective Date of Service Aug 27, 2016 Subjective She states that he is feeling somewhat better. His story status is improved and he denies any current chest pain, shortness of breath, nausea or vomiting. Exam Vital Signs Vital Sign - Last Date Time Temp Pulse Resp B/P Pulse Ox O2 Delivery O2 Flow Rate FiO2 08/27/16 07:31 36.7 100 20 114/67 97 Room Air 08/26/16 12:03 2.00 Intake and Output 08/26/16 08/26/16 08/27/16 Cumulative From/Thru 15:00 23:00 07:00 08/25/16 10:19 - 08/27/16 06:31 Intake Total 1957 ml 1045 ml 4124 ml Output Total 5100 ml 100 ml 11222 ml Balance -3143 ml 945 ml -6076 ml Intake Oral 1460 ml 600 ml 2960 ml IV Total 197 ml 145 ml 564 ml Packed Cells 300 ml 300 ml 600 ml Output Urine Total 300 ml 100 ml 1400 ml Ultrafiltrate 4800 ml 8800 ml # Bowel Movements 0 2 5 Exam Neck supple without adenopathy thyromegaly or jugular venous distention. Lungs are clear to auscultation somewhat diminished. Heart was irregularly irregular. Abdomen was soft without any tenderness rebound guarding masses or hepatosplenomegaly. Extremities she has any clubbing cyanosis or edema. Skin turgor was good and there is no evidence of any rashes. Lab and Diagnostics Result Diagram: 08/27/16 0330 08/27/16 0330 X-Rays, CTs and MRIs Chest x-ray IMPRESSION: 1. Right basilar pneumonia with small right pleural effusion. Continued plain film surveillance is recommended to ensure resolution, and to exclude underlying or central malignancy. Dictated by: Aidee Mccarty M.D. 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 Will Ivey DO Aug 27, 2016 10:06
[2016-08-27] MEDS ORDERED: Heparin 1,000 Unit/mL 10 mL Inj ONE (10:25)
[2016-08-27] MEDS ORDERED: Heparin 5,000 Units/500 mL NS Premix IV ONE (10:25)
--- NOTE | 2016-08-27 10:52 | NUR ---
Social Work: Initial Assessment D: Per EMR review, pt is a 76 year old male admitted for ERSD, CHF, Fluid Overload. Pt is [employer] with no LTC insurance or VA benefits. PCP is Siddharth Torres MD. NOK/DPOA is Daysi Perez, , . Advanced directives in EMR. Readmit score is moderate, 4/8. CEMENT MIXER DRIVER met with pt at bedside. Sw role explained. See initial assessment. Pt lives in [place] with his . He is I at baseline and uses a cane for mobility. Pt states he owns a FWW which he uses on occasion but would like a 4WW one with a seat so that he can ambulate further distances. Pt has been SBA with ambulating during admission. CEMENT MIXER DRIVER discussed insurance coverage of DME, pt does not believe he has used his benefit for DME and understands that he only gets one piece of DME covered every 5 years. He would still like to pursue DME coverage through [employer]. CEMENT MIXER DRIVER requested order from MD and dictation in progress note for medical necessity along with PT eval for additional dictation/support. Pt states he has never had home health or been to skilled rehab in the past. Pt states that he is I and continue to drive. A: Pt who lives with spouse in [place]. P: Anticipate pt to discharge home; CEMENT MIXER DRIVER to fax prescription for 4WW along with supporting documentation once completed by ; AMARJIT Allen Addendum: 08/27/16 at 1101 by CHIQUI ZAVALA Amended: Links added.
--- NOTE | 2016-08-27 12:15 | NUR ---
Off unit Patient off unit to blood and plasma laboratory assistant for fistulagram.
[2016-08-27] MEDS ORDERED: 0.9% Sodium Chloride 500 ML ONE (12:33)
[2016-08-27] MEDS ORDERED: fentaNYL-PF 50 mCg/mL 2 mL Inj ONE (12:38)
[2016-08-27] MEDS: Benzocaine-Menthol Lozenge 2/Pkg PO PRN ×3 (14:02→22:20)
--- NOTE | 2016-08-27 14:56 | DRSVH ---
PROCEDURE: 1. Left upper extremity arteriovenous fistulogram. 2. Angioplasty of venous limb at the level of mid humerus. 3. Conscious sedation x40 minutes. INDICATIONS: Malfunctioning arteriovenous fistula. TECHNIQUE: Informed, written consent from the patient was obtained prior to the procedure. Patient wa s brought to the angiography suite, and conscious sedation was administered intravenously by [facility] staff, while continuous cardiorespiratory monitoring was performed. Maximal sterile barrier t echnique, hand hygiene, skin preparation, and sterile ultrasound technique (if ultrasound was utilize d) was followed. A mask, sterile gown, sterile gloves, a large sterile sheet, hand hygiene, and 2% ch lorhexidine or iodine was utilized for skin antisepsis. The left upper extremity was prepped and drap ed sterilely, and the skin and subcutaneous tissues overlying the peripheral aspect of the venous posadas b were infused with lidocaine. The peripheral aspect of the venous limb was accessed antegrade with a micropuncture set. Contrast was administered for arteriovenous fistulogram. Intravenous was administ ered. A Glidewire was advanced into the venous limb. A 6 [place] sheath was advanced, through which a 40 mm long balloon was advanced and was expanded to 9.2 mm diameter within the venous limb at the lev el of the midhumerus. Repeat arteriovenous fistulogram. Sheath removed and the venotomy closed with p urse string closure technique. FLUOROSCOPY TIME: 1.5 minutes COMPARISON: [facility], XA, ARTERIO VENOUS FISTULOGRAM (PNL), 05/26/2016, 10:51. FINDINGS: The arteriovenous anastomosis is widely patent. There is a prominent collateral structure arising from the peripheral aspect of the venous limb at the level of the distal humerus. There is re current moderate to high-grade stenosis within the venous limb at the level of the midhumerus, resolv ed following 9 mm angioplasty. Central draining venous structures are patent. IMPRESSION: 1. 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 2. Prominent venous collateral arising from the peripheral aspect of the venous limb. This could be e mbolized percutaneously if low flow is encountered clinically within the fistula. Dictated by: Aidee Mccarty M.D. on 08/27/2016 at 14:54 Approved by: Aidee Mccarty M.D. on 08/27/2016 at 14:54
[2016-08-27] MEDS: 0.9% Sodium Chloride 250 ML IV SCH (15:10)
--- NOTE | 2016-08-27 15:53 | NUR ---
PIO PT RECEIVED FROM WHEEL POLISHER AT 1340. LEFT ARM FISTULA WITH PURSESTRING HAS POSITIVE BRUIT AND RADIAL PULSE. NO BLEEDING. PT UNDERSTANDS TO KEEP LEFT ARM STRAIGHT FOR 2 HOURS. HE IS ALERT AND TAKING FLUIDS AND MEAL. PURSESTRING DISCONTINUED AT 1525, BANDAID APPLIED. C/D/I. PT, AND HIS NURSING CARE, WERE TRANSFERRED BACK TO ROOM 2008 AT 1545. RN TO RN BEDSIDE HAND OFF WAS DONE WITH SUKI Zarate RN.
--- NOTE | 2016-08-27 16:11 | NUR ---
eturned to floor Patient returned to unit via bed. Patient A&O x3. VSS. Denies all pain/discomfort. Patient ambulated to bathroom c SBA. Patient currently resting in bed, call light within reach and all needs met at this time.
--- NOTE | 2016-08-27 21:02 | PCM.PNMED ---
Subjective Date of Service Aug 27, 2016 Subjective 76-year-old gentleman with past medical history of diastolic CHF, atrial fibrillation not on anticoagulation, hyperlipidemia, sick sinus syndrome status post pacemaker, hypertension,JAMIE,ESRD on HD TTS for the last 6 months, indwelling suprapubic catheter, history of recurrent nephrolithiasis came to the emergency room due to dyspnea, cough and orthopnea of one day. Patient states he had increase orthopnea overnight. He had dialysis 08/26 and his usual 2+ fluid was removed. He continues to make urine. He has history of atrial fibrillation was initially on warfarin but discontinued due to multiple bleeding episodes during dialysis access. Overnight Events. No acute events overnights. Mr. Jaswant Perez is resting in bed comfortably and in no acute distress. He reports feeling okay. The patient denies headache, dizziness, sore throat, cough , chest pain, shortness of breath, abdominal pain, nausea, vomiting, constipation, and diarrhea. The patient is voiding and eliminating without difficulty. The patient is ambulating without difficulty although he thinks a walker would be beneficial . Exam Vital Signs Vital Sign - Last Date Time Temp Pulse Resp B/P Pulse Ox O2 Delivery O2 Flow Rate FiO2 08/27/16 17:32 36.6 99 20 124/74 96 Room Air 08/26/16 12:03 2.00 Intake and Output 08/26/16 08/26/16 08/27/16 Cumulative From/Thru 15:00 23:00 07:00 08/25/16 10:19 - 08/27/16 06:31 Intake Total 1957 ml 1045 ml 4124 ml Output Total 5100 ml 100 ml 22383 ml Balance -3143 ml 945 ml -6076 ml Intake Oral 1460 ml 600 ml 2960 ml IV Total 197 ml 145 ml 564 ml Packed Cells 300 ml 300 ml 600 ml Output Urine Total 300 ml 100 ml 1400 ml Ultrafiltrate 4800 ml 8800 ml # Bowel Movements 0 2 5 Exam General: No acute distress, well-developed, well-nourished, appropriately interactive HEENT: Normocephalic, atraumatic. External ears without defect. Pupils equal, round, and reactive to light and accommodation. Anicteric sclerae, moist conjunctivae, and no lid lag. Oropharynx free of erythema and cobble stoning with moist mucosa. Neck: Supple with full range of motion. No jugular venous distension. No bruits. No lymphadenopathy or thyromegaly. Cardiovascular: Regular rate and rhythm with no murmurs, rubs, or gallops appreciated Pulmonary: Clear to auscultation bilaterally with no crackles, wheezes, or rhonchi. Normal respiratory effort with no use of accessory muscles. Abdomen: Bowel tones present. Soft, nontender, nondistended. No hepatosplenomegaly or masses appreciated. Extremities: No clubbing, cyanosis, edema, or lymphadenopathy appreciated. Skin: Normal temperature, turgor, and texture; no rash, ulcers, or subcutaneous nodules appreciated. Neurological: Cranial nerves grossly intact. Normal muscle strength, tone, and bulk. Reflexes, coordination, and sensory function within normal limits. No known gait impairment. Psychiatric: Normal mood and affect. Alert and oriented to person, place, and time. IVs and Medications Medications Reviewed: Medications were reviewed in detail Lab and Diagnostics Result Diagram: 08/27/16 0330 08/27/16 0330 X-Rays, CTs and MRIs Chest x-ray IMPRESSION: 1. Right basilar pneumonia with small right pleural effusion. Continued plain film surveillance is recommended to ensure resolution, and to exclude underlying or central malignancy. Dictated by: Aidee Mccarty M.D. on 08/25/2016 at 11:23 12-lead ECG rapid afib rate 126 Additional Diagnostics PROCEDURE: 1. Left upper extremity arteriovenous fistulogram. 2. Angioplasty of venous limb at the level of mid humerus. 3. Conscious sedation x40 minutes. IMPRESSION: 1. 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 2. Prominent venous collateral arising from the peripheral aspect of the venous limb. This could be embolized percutaneously if low flow is encountered clinically within the fistula. Dictated by: Aidee Mccarty M.D. on 08/27/2016 at 14:54 Assessment & Plan 76-year-old gentleman with past medical history of diastolic CHF, atrial fibrillation not on anticoagulation, hyperlipidemia, sick sinus syndrome status post pacemaker, hypertension,JAMIE,ESRD on HD TTS for the last 6 months, indwelling suprapubic catheter, history of recurrent nephrolithiasis came to the emergency room due to dyspnea, cough and orthopnea of one day. 1. Acute Dyspnea, present on admission, Resolved. - Multifactorial( worsening diastolic CHF due to rapid A. fib/possible fluid overload, suspected pneumonia) - 2nd to Fluid overload. - Switched from IV to PO diltiazem. - Will stop azithromycin and ceftriaxone for today.and stop antibiotics if no further evidence of infection - CXR per above. - Viral respiratory PCR -negative. - Strep pneumo, legionella AG negative. - Sputum cx negative. - Procalcitonin pending 0.33 from 0.27. 2. End Stage renal disease, present on admission, Active. - Currently on HD , , Tue schedule. - Fistulogram results per above. - Continue home Lasix,Renelva,sensipar - Consulted nephrology. 3. Macrocytic anemia, present on admission, Improved. - likely secondary to bone marrow suppression. - Normal folate, vitB12 level. - Low serum iron, low TIBC, low TSat, high ferritin. - Possible combined ANDRES and anemia of CKD. - Hgb stable today at 9.5 up from 7.0. - Aranesp injection today. 4. Elevated Tbili and alkaline phos, present on admission. Active. - Possibly due to liver congestion - Will monitor ,will consider imaging if remains high 5. Acute on chronic Diastolic CHF due to rapid Afib, present on admission, active. - Rate control as above,HD as above, continue home Lasix 80 mg by mouth twice a day - Daily weights,I/O - will consider echocardiogram once heart rate is controlled 6. Hypertension, present on admission. Improving. 7. Hypervolemic hyponatremia, present on admission. Resolved. - Na 2 g per day, fluid restriction 1-1.5L per day if possible. 8. Acute Afib with RVR, present on admission, active. - Patient rate controlled without medications at baseline - Gave 2 doses of Cardizem push, HR not controlled,will start Cardizem drip at 7.5mg /h. Titrate to keep heart rate < 100 - not a candidate for anticoagulation due to history of bleeding. Continue aspirin - Transition to BB upon discharge - TFT WNL ,troponin negative Chronic medical issues indwelling suprapubic catheter,recently changed - UA pending. Gout, continue allopurinol Acetaminophen for mild pain when necessary. Bowel regimen Senna and MiraLAX scheduled and PRN. Zofran when necessary for nausea and vomiting. SubQ heparin held for now. SCDs in place. High-risk medications: Disposition: likely home tomorrow. Will discharge home. Pain Evaluation: Adequate Pain Control Resuscitation Status: CPR: Attempt Resuscitation Attending Statement The patient was seen and examined together with Dr. Vera on 08/27/2016 and I agree with the history, exam and plan as outlined in the note above. . ALYSON VERA DO Aug 27, 2016 18:46 Fabrice Mike MD Sep 10, 2016 17:37
[2016-08-28] VITALS (11 sets, daily range): BP systolic 110–127; BP diastolic 52–91; PULSE 46–122; RESP 12–22; O2SAT 93–98
[2016-08-28] MEDS: Benzocaine-Menthol Lozenge 2/Pkg PO PRN ×5 (00:18→20:21)
[2016-08-28] MEDS: levoFLOXacin Inj 750 MG in IV Premix 1 EACH IV SCH (00:20)
[2016-08-28] MEDS: HYDROcodone-APAP 10-325 mg PO PRN ×3 (01:52→20:31)
[2016-08-28 04:04] LABS: BASOPHILS % (AUTO) 0 % (0-3); EOSINOPHILS % (AUTO) 0.7 % (0-5); MONOCYTES % (AUTO) 16.6 % (4-12); Mean Corpuscular Hemoglobin 33.9 pg (27.0-35.0); Mean Corpuscular Volume 102.4 fL (81-100); NEUTROPHILS % (AUTO) 62.2 % (40-74); Platelet Count 272 bil/L (150-400)
[2016-08-28] MEDS: Pantoprazole 40 mg ER24 Tablet PO SCH (06:48)
[2016-08-28] MEDS ORDERED: Albuterol-Ipratropium 3 mL Inhalation Solution NEB ONE (07:45)
[2016-08-28] MEDS ORDERED: Diltiazem CD 120 mg ER24 Capsule PO SCH ×2 (08:30→20:30)
--- NOTE | 2016-08-28 08:46 | NUR ---
pt arrived [place] [facility] [place] at ~0820 via bed report received from primary nurse SN RN ([facility]) fox raiser at bedside tele threat monitoring analyst informed of temp room location
--- NOTE | 2016-08-28 09:30 | PCM.PNMED ---
Subjective Date of Service Aug 28, 2016 Subjective Patient feels considerably better today. He denies any cough, wheezing, chest pain, nausea or vomiting. Exam Vital Signs Vital Sign - Last Date Time Temp Pulse Resp B/P Pulse Ox O2 Delivery O2 Flow Rate FiO2 08/28/16 09:15 122 08/28/16 08:00 36.6 18 127/91 96 Room Air 08/26/16 12:03 2.00 Intake and Output 08/27/16 08/27/16 08/28/16 Cumulative From/Thru 15:00 23:00 07:00 08/25/16 10:19 - 08/28/16 06:05 Intake Total 1400 ml 750 ml 6274 ml Output Total 100 ml 200 ml 91778 ml Balance 1300 ml 550 ml -4226 ml Intake Oral 1320 ml 600 ml 4880 ml IV Total 80 ml 150 ml 794 ml Packed Cells 600 ml Output Urine Total 100 ml 200 ml 1700 ml Ultrafiltrate 8800 ml # Bowel Movements 1 2 8 Exam Neck is supple without adenopathy thyromegaly. Venous distention. Lungs showed a few scattered rhonchi but otherwise were grossly clear. Heart was regular with a soft systolic murmur. Abdomen soft nontender she rebound guarding masses or hepatosplenomegaly. Extremities did not show any evidence of any clubbing cyanosis or edema. Lab and Diagnostics Result Diagram: 08/28/16 0345 08/28/16 0345 X-Rays, CTs and MRIs Chest x-ray IMPRESSION: 1. Right basilar pneumonia with small right pleural effusion. Continued plain film surveillance is recommended to ensure resolution, and to exclude underlying or central malignancy. Dictated by: Aidee Mccarty M.D. on 08/25/2016 at 11:23 12-lead ECG rapid afib rate 126 Additional Diagnostics PROCEDURE: 1. Left upper extremity arteriovenous fistulogram. 2. Angioplasty of venous limb at the level of mid humerus. 3. Conscious sedation x40 minutes. IMPRESSION: 1. 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 2. Prominent venous collateral arising from the peripheral aspect of the venous limb. This could be embolized percutaneously if low flow is encountered clinically within the fistula. Dictated by: Aidee Mccarty M.D. on 08/27/2016 at 14:54 Assessment & Plan Impression #1 end-stage renal disease dialysis dependent #2 hypertension with hypertensive heart disease hypertensive nephrosclerosis Recommendations #1 patient to dialyzed today for his routine treatment for 4 hours. He has been dialyzed. 2 potassium bath 1200 of heparin with 500 hour. We will attempt to take off 2-3 L of fluid. From a reported to be discharged following dialysis today. Resuscitation Status: CPR: Attempt Resuscitation Will Ivey DO Aug 28, 2016 09:30
--- NOTE | 2016-08-28 09:47 | NUR ---
[place] [facility] Patient given diltiazem and renvela before he left, will hold all other AM meds until after dialysis. Report given to CARLA Lr.
--- NOTE | 2016-08-28 12:30 | NUR ---
Return from Dialysis Patient back form dialysis. VSS, denies pain/discomfort. Resting in bed, call light within reach all needs met.
--- NOTE | 2016-08-28 12:43 | NUR ---
Dialysis note 4 hr HD tx. 3000ml net UF removed. 2 15 g needles to EILEEN fistula. QB 300 with arterial spasms, pt c/o arm soreness following tx's and fistulagram yesterday. See DTR for complete vitals. Off BP 128/74 HR 115. TELE reporting pt in Afib/flutter with rates occasionally up to 120's during tx. Pt denied CP. Productive cough with sputum. Up to BR with loose stools X1. Sureseals/clamps X10 mins post tx. Report given and pt returned to floor stable.
--- NOTE | 2016-08-28 12:51 | NUR ---
pt returned to [facility] post DIALYSIS at 1250 via bed escorted by RN and POST MANAGER tele media monitor informed to return to unit see tool planer set up operator note, intervention, and/or graphic flow chart for treatment details
[2016-08-28] MEDS: 0.9% Sodium Chloride 250 ML IV SCH (14:48)
--- NOTE | 2016-08-28 15:43 | DRSVH ---
PROCEDURE: X-RAY CHEST ONE VIEW, PORTABLE ([id number]) INDICATIONS: 76 year-old male with productive cough. TECHNIQUE: One view of the chest was acquired. COMPARISON: [facility], CR, XR CHEST 1VW (PORTABLE), 08/25/2016, 10:48. [facility], CR, XR CHEST 2V AP/PA AND LAT, 03/03/2016, 10:33 AM. [facility], CR, CHEST 2V W, 10/29/2015, 11:40. FINDINGS: Surgical changes and devices: Left chest wall dual chamber pacemaker is again noted, as well as lower cervical spine anterior fixation hardware. Lungs and pleura: Basal right pleural effusion has resolved. Lungs appear clear. Lungs are clear. Mediastinum: Mediastinal contours appear normal. Heart size is normal given AP technique. There is aortic atherosclerosis. Bones and chest wall: No suspicious bony lesions. Overlying soft tissues appear unremarkable. IMPRESSION: Interval resolution of small basal right pleural effusion. No acute cardiopulmonary disea se. Dictated by: Saran Pedersen M.D. on 08/28/2016 at 15:41 Approved by: Saran Pedersen M.D. on 08/28/2016 at 15:41
[2016-08-28 15:49] LABS: APPEARANCE,URINE HAZY (CLEAR,HAZY); COLOR,URINE YELLOW (YELLOW)
[2016-08-28 15:50] LABS: OCCULT BLOOD,URINE MODERATE (NEGATIVE); UROBILINOGEN,URINE NORMAL (NORMAL)
--- NOTE | 2016-08-28 17:32 | PCM.PNMED ---
Subjective Date of Service Aug 28, 2016 Subjective 76-year-old gentleman with past medical history of diastolic CHF, atrial fibrillation not on anticoagulation, hyperlipidemia, sick sinus syndrome status post pacemaker, hypertension,JAMIE,ESRD on HD TTS for the last 6 months, indwelling suprapubic catheter, history of recurrent nephrolithiasis came to the emergency room due to dyspnea, cough and orthopnea of one day. Patient states he had increase orthopnea overnight. He had dialysis 08/26 and his usual 2+ fluid was removed. He continues to make urine. He has history of atrial fibrillation was initially on warfarin but discontinued due to multiple bleeding episodes during dialysis access. Overnight Events. No acute events overnights. Mr. Jaswant Perez is resting in bed comfortably and in no acute distress. He reports feeling okay but his cough has increased and is now more productive than before. The patient denies headache, dizziness, chest pain, shortness of breath, abdominal pain, nausea, vomiting, constipation, and diarrhea. The patient is voiding and eliminating without difficulty. The patient is ambulating without difficulty although he thinks a walker would be beneficial . Exam Vital Signs Vital Sign - Last Date Time Temp Pulse Resp B/P Pulse Ox O2 Delivery O2 Flow Rate FiO2 08/28/16 16:34 37.0 118 20 117/62 96 08/28/16 16:15 Room Air 08/26/16 12:03 2.00 Intake and Output 08/27/16 08/27/16 08/28/16 Cumulative From/Thru 15:00 23:00 07:00 08/25/16 10:19 - 08/28/16 06:05 Intake Total 1400 ml 750 ml 6274 ml Output Total 100 ml 200 ml 55813 ml Balance 1300 ml 550 ml -4226 ml Intake Oral 1320 ml 600 ml 4880 ml IV Total 80 ml 150 ml 794 ml Packed Cells 600 ml Output Urine Total 100 ml 200 ml 1700 ml Ultrafiltrate 8800 ml # Bowel Movements 1 2 8 Exam General: No acute distress, well-developed, well-nourished, appropriately interactive HEENT: Normocephalic, atraumatic. External ears without defect. Pupils equal, round, and reactive to light and accommodation. Anicteric sclerae, moist conjunctivae, and no lid lag. Oropharynx free of erythema and cobble stoning with moist mucosa. Neck: Supple with full range of motion. No jugular venous distension. No bruits. No lymphadenopathy or thyromegaly. Cardiovascular: Regular rate and rhythm with no murmurs, rubs, or gallops appreciated Pulmonary: Clear to auscultation bilaterally with no crackles, wheezes. He has mild scattered coarse rhonchi with intermittent cough elicited by deep inspiration. Normal respiratory effort with no use of accessory muscles. Abdomen: Bowel tones present. Soft, nontender, nondistended. No hepatosplenomegaly or masses appreciated. Extremities: No clubbing, cyanosis, edema, or lymphadenopathy appreciated. Skin: Normal temperature, turgor, and texture; no rash, ulcers, or subcutaneous nodules appreciated. Neurological: Cranial nerves grossly intact. Normal muscle strength, tone, and bulk. Reflexes, coordination, and sensory function within normal limits. No known gait impairment. Psychiatric: Normal mood and affect. Alert and oriented to person, place, and time. IVs and Medications Medications Reviewed: Medications were reviewed in detail Lab and Diagnostics Result Diagram: 08/28/16 0345 08/28/16 0345 X-Rays, CTs and MRIs Chest x-ray IMPRESSION: 1. Right basilar pneumonia with small right pleural effusion. Continued plain film surveillance is recommended to ensure resolution, and to exclude underlying or central malignancy. Dictated by: Aidee Mccarty M.D. on 08/25/2016 at 11:23 12-lead ECG rapid afib rate 126 Additional Diagnostics PROCEDURE: 1. Left upper extremity arteriovenous fistulogram. 2. Angioplasty of venous limb at the level of mid humerus. 3. Conscious sedation x40 minutes. IMPRESSION: 1. 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 2. Prominent venous collateral arising from the peripheral aspect of the venous limb. This could be embolized percutaneously if low flow is encountered clinically within the fistula. Dictated by: Aidee Mccarty M.D. on 08/27/2016 at 14:54 Assessment & Plan 76-year-old gentleman with past medical history of diastolic CHF, atrial fibrillation not on anticoagulation, hyperlipidemia, sick sinus syndrome status post pacemaker, hypertension,JAMIE,ESRD on HD TTS for the last 6 months, indwelling suprapubic catheter, history of recurrent nephrolithiasis came to the emergency room due to dyspnea, cough and orthopnea of one day. 1. Acute Dyspnea, present on admission, Resolved. - Multifactorial( worsening diastolic CHF due to rapid A. fib/possible fluid overload, suspected pneumonia) - 2nd to Fluid overload. - Switched from IV to PO diltiazem. - CXR per above. - Viral respiratory PCR -negative. - Strep pneumo, legionella AG negative. - Sputum cx negative. Repeat today. - Procalcitonin - 18.44.Procalcitonin on admission was low 0.27 to 0.33, however he continued to have a cough 2. End Stage renal disease, present on admission, Active. - Currently on HD , , Tue schedule. - Fistulogram results per above. - Continue home Lasix, Renelva, sensipar - Nephrology following, Recommendations appreciated. - Dialysis with 3 L UF. 3. Macrocytic anemia, present on admission, Improved. - likely secondary to bone marrow suppression. - Normal folate, vitB12 level. - Low serum iron, low TIBC, low TSat, high ferritin. - Possible combined ANDRES and anemia of CKD. - Hgb stable today at 9.9 up from 9.5 - Aranesp injection yesterday. 4. Elevated Tbili and alkaline phos, present on admission. Active. - Possibly due to liver congestion - Will monitor ,will consider imaging if remains high 5. Acute on chronic Diastolic CHF due to rapid Afib, present on admission, active. - Rate control as above,HD as above, continue home Lasix 80 mg by mouth twice a day - Daily weights,I/O - will consider echocardiogram once heart rate is controlled 6. Hypertension, present on admission. Improving. 7. Hypervolemic hyponatremia, present on admission. Resolved. - Na 2 g per day, fluid restriction 1-1.5L per day if possible. 8. Acute Afib with RVR, present on admission, active. - Patient rate controlled without medications at baseline - changed Diltiazem from 120 to 180mg daily to Titrate to keep heart rate < 100. - not a candidate for anticoagulation due to history of bleeding. Continue aspirin. - Transition to BB upon discharge. - TFT WNL ,troponin negative. Chronic medical issues indwelling suprapubic catheter,recently changed - UA pending. Gout, continue allopurinol Acetaminophen for mild pain when necessary. Bowel regimen Senna and MiraLAX scheduled and PRN. Zofran when necessary for nausea and vomiting. SubQ heparin held for now. SCDs in place. High-risk medications: Disposition: likely home tomorrow. Will discharge home. Pain Evaluation: Adequate Pain Control Resuscitation Status: CPR: Attempt Resuscitation Attending Statement The patient was seen and examined together with Dr. Vera on 08/28/2016 and I agree with the history, exam and plan as outlined in the note above. . ALYSON VERA DO Aug 28, 2016 17:32 Fabrice Mike MD Sep 10, 2016 17:38
--- NOTE | 2016-08-28 17:58 | NUR ---
Cough Patient has persistant, productive cough. Sputum sample sent to lab. Tesslon pearls/cepacol given PRN per MD order, will continue to monitor.
[2016-08-28] MEDS: Albuterol-Ipratropium 3 mL Inhalation Solution NEB SCH (21:05)
[2016-08-29] VITALS (7 sets, daily range): BP systolic 106–124; BP diastolic 66–79; PULSE 96–138; RESP 16–22; O2SAT 96–100
[2016-08-29] MEDS: Benzocaine-Menthol Lozenge 2/Pkg PO PRN ×3 (01:26→12:07)
[2016-08-29 03:25] LABS: BASOPHILS % (AUTO) 0 % (0-3); EOSINOPHILS % (AUTO) 0.3 % (0-5); MONOCYTES % (AUTO) 19.2 % (4-12); Mean Corpuscular Volume 102.5 fL (81-100); NEUTROPHILS % (AUTO) 69.1 % (40-74); Platelet Count 286 bil/L (150-400)
[2016-08-29] MEDS: Albuterol-Ipratropium 3 mL Inhalation Solution NEB SCH ×2 (06:05→11:44)
--- NOTE | 2016-08-29 06:05 | NUR ---
Cough and sleep Patient cough has remained difficult to control. Patient reports slight improvement in severity and frequency of cough episodes. PRN cough suppressants are being used and breathing treatment are being administer by RT. Patient reports improvement with breathing treatments. Patient reported that he was able to get a small amount of sleep but that it was difficult with the severity of him coughing.
[2016-08-29] MEDS: Pantoprazole 40 mg ER24 Tablet PO SCH (06:48)
[2016-08-29] MEDS: HYDROcodone-APAP 10-325 mg PO PRN ×2 (06:48→13:07)
[2016-08-29] MEDS ORDERED: Diltiazem CD 180 mg ER24 Capsule PO SCH (08:30)
--- NOTE | 2016-08-29 10:27 | NUR ---
[facility] Signed
--- NOTE | 2016-08-29 10:54 | PCM.PNMED ---
Subjective Date of Service Aug 29, 2016 Subjective Patient is having some intermittent tachycardia. Otherwise he denies any chest pain or shortness of breath. Exam Vital Signs Vital Sign - Last Date Time Temp Pulse Resp B/P Pulse Ox O2 Delivery O2 Flow Rate FiO2 08/29/16 09:20 Supplement Oxygen 08/29/16 08:00 129 08/29/16 07:22 36.8 18 111/66 96 08/26/16 12:03 2.00 Intake and Output 08/28/16 08/28/16 08/29/16 Cumulative From/Thru 15:00 23:00 07:00 08/25/16 10:19 - 08/29/16 04:56 Intake Total 1450 ml 720 ml 8444 ml Output Total 3000 ml 500 ml 375 ml 86308 ml Balance -3000 ml 950 ml 345 ml -5931 ml Intake Oral 1450 ml 720 ml 7050 ml IV Total 794 ml Packed Cells 600 ml Output Urine Total 500 ml 375 ml 2575 ml Ultrafiltrate 3000 ml 83308 ml # Bowel Movements 1 9 Exam Is supple without adenopathy thyromegaly or jugular venous distention. To auscultation though somewhat diminished. Heart: Soft systolic murmur. Abdomen soft without tenderness or rebound guarding masses or hepatosplenomegaly. Extremities trace clubbing cyanosis or edema. Skin turgor was good no evidence of any rashes. Lab and Diagnostics Result Diagram: 08/29/16 0303 08/29/16 0303 X-Rays, CTs and MRIs Chest x-ray IMPRESSION: 1. Right basilar pneumonia with small right pleural effusion. Continued plain film surveillance is recommended to ensure resolution, and to exclude underlying or central malignancy. Dictated by: Aidee Mccarty M.D. on 08/25/2016 at 11:23 12-lead ECG rapid afib rate 126 Additional Diagnostics PROCEDURE: 1. Left upper extremity arteriovenous fistulogram. 2. Angioplasty of venous limb at the level of mid humerus. 3. Conscious sedation x40 minutes. IMPRESSION: 1. 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 2. Prominent venous collateral arising from the peripheral aspect of the venous limb. This could be embolized percutaneously if low flow is encountered clinically within the fistula. Dictated by: Aidee Mccarty M.D. on 08/27/2016 at 14:54 Assessment & Plan Impression #1 end-stage renal disease dialysis dependent #2 hypertension with hypertensive heart disease and hypertensive nephrosclerosis #3 pulmonary edema which has resolved Recommendations #1 we will make arrangements for his dialysis on Tuesday. VTE Mechanical Devices: Intermittant Pneumatic CD Resuscitation Status: CPR: Attempt Resuscitation Will Ivey DO Aug 29, 2016 10:54
[2016-08-29] MEDS ORDERED: Albuterol 2.5 mg/3 mL Inhalation Solution NEB PRN (11:30)
[2016-08-29] MEDS ORDERED: DILT180C66 PO (14:38)
[2016-08-29] MEDS ORDERED: BENZ100C8 PO (14:38)
[2016-08-29] MEDS: 0.9% Sodium Chloride 250 ML IV SCH (15:10)
--- NOTE | 2016-08-29 15:12 | PCM.DIMED ---
Renay Spring DO 08/29/16 1512: Discharge Instructions Date of Service Aug 29, 2016 Dates of Hospitalization Aug 25, 2016 at 15:01 Discharge Diagnosis Discharge Diagnosis Acute dyspnea, multifactorial and due to worsening diastolic CHF, rapid A. fib, fluid overload, and possible pneumonia, present on admission. Resolved. End stage renal disease, present on admission. Active. Acute atrial fibrillation with RVR, present on admission. Active. Acute on chronic diastolic CHF due to rapid atrial fibrillation, present on admission. Active. Macrocytic anemia, secondary to bone marrow suppression, present on admission. Improved. Hypervolemic hyponatremia, present on admission. Resolved. Elevated total bilirubin and alkaline phos, present on admission. Active. Hypertension, chronic. Chronic indwelling suprapubic catheter. Gout, chronic. . Medication Instructions New medications: Benzonatate 100 mg every 4 hours as needed for cough. Diltiazem 180 mg daily. Levofloxacin 750 mg to take on 08/30/16 x 1 dose. Continue medications: Allopurinol 100 mg daily. Aspirin 81 mg daily Atorvastatin 10 mg each bedtime. Cinacalcet 30 mg daily. Diphenoxylate/atropine 2.5 mg 4 times a day as needed for diarrhea. Fluoxetine 20 mg twice a day. Fluticasone 2 intranasal spray as needed for congestion. Furosemide 80 mg twice a day. Hydrocodone 10 mg 4 times a day as needed for pain. Multivitamin 1 daily. Omeprazole 20 mg daily. Potassium chloride 10 mEq twice a day. Sevelamer carbonate 100 mg 3 times a day with meals. Vitamin B complex one daily. Diet Renal Diet Activity Limited until seen by PCP Call your provider Fever or Chills, Shortness of breath, Bleeding, Chest pain, Vomitting, Excessive diarrhea, Weakness (unilateral) Patient Instructions Follow-up plan Please follow-up with your primary care physician, Dr. Torres, in the next 1-2 weeks regarding your recent hospitalization. You are due for dialysis next Tuesday with Dr. Burroughs. . Follow-up Provider: Jordan Burroughs MD Provider: Siddharth Torres MD, D Geoffrey MD 08/30/16 1720: Discharge Instructions Attending's Statement The patient was seen and examined together with Dr. Spring on 08-29-16 and I agree with the history, exam and plan as outlined in the note above. Renay Spring DO Aug 29, 2016 15:12 Lindsey Ernandez MD Aug 30, 2016 17:20
[2016-08-29] MEDS ORDERED: LEVO750T39 PO (15:15)
--- NOTE | 2016-08-29 16:45 | NUR ---
Discharge Patient continues to have persistent cough, however patient is afebrile and VSS with SpO2 in the high 90s on RA. Patient in Afib with rate in the 100's. Patient teaching on Afib as well as renal diet/fluid restriction done. Discharge instructions printed and reviewed verbally with patient. New Rx sent to his preferred pharmacy. Patient left unit via wc with all personal belongings, accompanied by his and transported home via personal vehicle.
--- NOTE | 2016-09-01 19:04 | PCM.DC.MED ---
Discharge Summary Date of Service Aug 29, 2016 Dates of Hospitalization Date of Hospital Admission Aug 25, 2016 at 15:01 Date of Discharge: Aug 29, 2016 Providers: Admitting Physician: Jose Alberto Benz MD Primary Care Physician: Siddharth Torres MD Attending Physician: Jose Alberto Benz MD Diagnosis at Time of Discharge Diagnosis at Time of Discharge Acute dyspnea, multifactorial and due to worsening diastolic CHF, rapid A. fib, fluid overload, and possible pneumonia, present on admission. Resolved. Acute on chronic diastolic CHF due to rapid atrial fibrillation, present on admission. Active. End stage renal disease, chronic, present on admission. Active. Macrocytic anemia, secondary to bone marrow suppression, present on admission. Improved. Elevated total bilirubin and alkaline phos, present on admission. Active. Hypertension, chronic. Hypervolemic hyponatremia, present on admission. Resolved. Acute atrial fibrillation with RVR, present on admission. Active. Chronic medical issues: Indwelling suprapubic catheter, recently changed. Gout, chronic. Hyperlipidemia, chronic. Depression, chronic. GERD, chronic. . Consultations Nephrology, . Procedures ECG 12 Lead Rapid atrial fibrillation rate 126. . Other Diagnostics X-RAY CHEST ONE VIEW, PORTABLE IMPRESSION: Interval resolution of small basal right pleural effusion. No acute cardiopulmonary disease. Dictated by: Saran Pedersen M.D. on 08/28/2016 at 15:41 Approved by: Saran Pedersen M.D. on 08/28/2016 at 15:41 PROCEDURE: 1. Left upper extremity arteriovenous fistulogram. 2. Angioplasty of venous limb at the level of mid humerus. 3. Conscious sedation x40 minutes. IMPRESSION: 1. 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 2. Prominent venous collateral arising from the peripheral aspect of the venous limb. This could be embolized percutaneously if low flow is encountered clinically within the fistula. Dictated by: Aidee Mccarty M.D. on 08/27/2016 at 14:54 X-RAY CHEST ONE VIEW, PORTABLE IMPRESSION: 1. Right basilar pneumonia with small right pleural effusion. Continued plain film surveillance is recommended to ensure resolution, and to exclude underlying or central malignancy. Dictated by: Aidee Mccarty M.D. on 08/25/2016 at 11:23 Approved by: Aidee Mccarty M.D. on 08/25/2016 at 11:23 . Brief History Per HPI by Dr. Benz on 08/25/16: 76-year-old gentleman with past medical history of diastolic CHF, atrial fibrillation not on anticoagulation, hyperlipidemia, sick sinus syndrome status post pacemaker, hypertension,JAMIE,ESRD on HD TTS for the last 6 months, indwelling suprapubic catheter, history of recurrent nephrolithiasis came to the emergency room due to dyspnea, cough and orthopnea of one day. Patient states he had his usual dialysis yesterday and went home. He usually has some dyspnea on day of dialysis which resolves after dialysis but yesterday continued to have dyspnea after dialysis. He had cough productive of yellowish sputum since yesterday. He also had orthopnea of 3 pillow and was unable to lie flat last night. He usually uses one pillow. He did not miss dialysis for the last 1 week. He missed a session of dialysis the week prior. He had dialysis yesterday and his usual 2+ fluid was removed. He continues to make urine. Did not notice any change in urine output. He takes Lasix 80 mg by mouth twice a day. Did not miss any dose He has history of atrial fibrillation was initially on warfarin but discontinued due to multiple bleeding episodes during dialysis access. Currently on aspirin 81 mg daily. Not on any beta dyllan or CCB. He denies fever. Denies chest pain. Denies palpitation ED course : Tachypneic at 24, heart rate 141, afebrile, BP 122/6 0.7, saturating and 97% on RA Hemoglobin 8.9, sodium 132, K 4, bicarbonate 20, [place] 17, creatinine 2.58, troponins negative, TB 1.4, alkaline phosphatase 31 EKG rapid A. fib at 126, chest x-ray right basilar pneumonia with right pleural effusion An dose of Lasix IV given. Hospitalist service requested for fluid overload. . Hospital Course Jaswant Perez 76-year-old gentleman with past medical history of diastolic CHF, atrial fibrillation not on anticoagulation, hyperlipidemia, sick sinus syndrome status post pacemaker, hypertension,JAMIE,ESRD on HD three times a week for the last 6 months, indwelling suprapubic catheter, history of recurrent nephrolithiasis who presented to [facility] ED for dyspnea, cough, and orthopnea x 1 day. Acute dyspnea, multifactorial and due to worsening diastolic CHF, rapid A. fib, fluid overload, and possible pneumonia, present on admission. Resolved. - Switched from IV to PO diltiazem CD 180 mg daily. - CXR as above. - Viral respiratory PCR negative. - Strep pneumo and legionella urine antigen negative. - Sputum culture negative. - Procalcitonin on admission was low 0.27. Repeat resulted at 18.17 and then again negative therefore likely no bacterial component to dyspnea and cough. - Received benzonatate 100 mg every 4 hours as needed for cough. Acute on chronic diastolic CHF due to rapid atrial fibrillation, present on admission. Active. - Rate control as above. HD as above. Continue home furosemide 80 mg twice a day. - Obtained daily weights and monitored I&O throughout hospitalization. End stage renal disease, chronic, present on admission. Active. - Currently on HD , , and Tue schedule. - Fistulogram results per above. - Continued home Lasix, Renelva, and Sensipar. - Dialysis performed 77916 L of UF. - Nephrology followed until discharge. Macrocytic anemia, secondary to bone marrow suppression, present on admission. Improved. - Possible combined iron deficiency anemia and anemia of CKD. - Normal folate and vit B12 levels. - Low serum iron, low TIBC, low transferrin saturation, high ferritin. - Hgb stable throughout hospitalization. - Aranesp injection x1. Elevated total bilirubin and alkaline phos, present on admission. Active. - Possibly due to liver congestion or Gilbert's disease. - Stable and should be followed up as an outpatient. Hypertension, chronic. - Diltiazem CD 180mg daily. Hypervolemic hyponatremia, present on admission. Resolved. - Na 2 g per day, fluid restriction 1-1.5 L per day if possible. Acute atrial fibrillation with RVR, present on admission. Active. - Changed Diltiazem from 120 to 180mg daily to keep heart rate < 100 which was controlled up to discharge. - Not a candidate for anticoagulation due to history of GI bleeding. Continued aspirin 81 mg daily. - Troponin negative. Chronic medical issues: Indwelling suprapubic catheter, recently changed. Gout, chronic. - Continue allopurinol 100 mg daily. Hyperlipidemia, chronic. - Atorvastatin 10 mg each bedtime. Depression, chronic. - Continued Fluoxetine 20 mg twice a day. GERD, chronic. - Omeprazole 20 mg daily. . Exam Vital Signs (Last) Date Time Temp Pulse Resp B/P Pulse Ox O2 Delivery O2 Flow Rate FiO2 08/29/16 11:44 121 96 Room Air 08/29/16 11:37 36.7 18 124/79 2.00 Exam General: Older gentleman lying in bed and in no acute distress, well-developed, well-nourished, appropriately interactive. HEENT: Normocephalic, atraumatic. External ears without defect. Pupils equal, round, and reactive to light. Anicteric sclerae, moist conjunctivae, and no lid lag. Oropharynx free of erythema and cobble stoning with moist mucosa. Poor dentition. Neck: Supple with full range of motion. No lymphadenopathy or thyromegaly. Cardiovascular: irregularly irregular rate and rhythm with no murmurs, rubs, or gallops appreciated. Pulmonary: Clear to auscultation bilaterally with no crackles, wheezes. He has mild scattered coarse rhonchi with intermittent cough elicited by deep inspiration. Normal respiratory effort with no use of accessory muscles. Abdomen: Soft, nontender, nondistended, bowel sounds present. No hepatosplenomegaly or masses appreciated. Extremities: No clubbing, cyanosis, or edema. Left AV fistula with scattered ecchymosis. Skin: Normal temperature, turgor, and texture; no rash, ulcers, or patel bcutaneous nodules appreciated. Neurological: Cranial nerves grossly intact. Known gait impairment and uses walker at baseline. Psychiatric: Normal mood and affect. Alert and oriented to person, place, and time. . Test 08/25/16 09:45 08/25/16 12:36 08/25/16 15:54 08/26/16 03:00 Prothrombin Time 12.0sec (8.1-12.5) Prothromb Time International Ratio 1.12ratio Troponin T < 0.010ug/L (0.0-0.011) Pro-B-Type Natriuretic Peptide 5301pg/mL (0-486) Thyroid Stimulating Hormone (TSH) 2.820uIU/mL (0.450-4.500) Free Thyroxine 1.25ng/dL (0.82-1.77) Phosphorus Level 3.4mg/dL (2.5-4.9) Reticulocyte Count,Calculated 1.6% (0.6-2.6) Iron Level 23ug/dL (35-150) Total Iron Binding Capacity 187ug/dL (250-450) Percent Iron Saturation 12%sat (15-50) Unsaturated Iron Binding 164.0ug/dL Ferritin 837ng/mL (30-400) Vitamin B12 Level 927pg/mL (211-946) Folate 4.7ng/mL (>3.0) Hematology Comments Test 08/26/16 04:00 08/26/16 04:30 08/28/16 12:30 08/29/16 03:03 Urine Ictotest Positive (Negative) Urine Legionella pneumophilia Ag Negative (Negative) Magnesium Level 1.6mg/dL (1.6-2.6) Urine Color Yellow (YELLOW) Urine Appearance Hazy (CLEAR,HAZY) Urine pH 7.0 (5.0-8.0) Urine Specific [place] 1.010 (1.003-1.035) Urine Protein 30mg/dL (NEG,TRACE) Urine Glucose (UA) Negativemg/dL (NEGATIVE) Urine Ketones Negativemg/dL (NEGATIVE) Urine Occult Blood Moderate (NEGATIVE) Urine Nitrite Negative (NEGATIVE) Urine Bilirubin Negative (NEGATIVE) Urine Urobilinogen Normalmg/dL (NORMAL) Urine Leukocyte Esterase Moderate (NEGATIVE) Urine RBC 0-2/hpf (0-2) Urine WBC 0-5/hpf (0-5) Urine Epithelial Cells None/hpf (NONE-MOD) Urine Crystals Amorphous urates (NONE Urine Bacteria Few/hpf (NONE-FEW) Urine Hyaline Casts None/lpf (NONE) Urine Granular Casts None seen (NONE SEEN) Urine Waxy Casts None seen (NONE SEEN) Urine Red Blood Cell Casts None seen (NONE SEEN) Urine White Blood Cell Casts None seen (NONE SEEN) Urine Mucus None seen (None Seen) Urine Trichomonas None seen (NONE SEEN) Urine Yeast None (NONE SEEN) Urinalysis Comment None Urine Culture Reflexed Indicated Hold Urine Received (Received) White Blood Count 6.2th/mm3 (3.8-10.1) Red Blood Count 2.82mil/mm3 (4.40-5.80) Hemoglobin 9.6g/dL (13.8-17.2) Hematocrit 28.9% (41.0-50.0) Mean Corpuscular Volume 102.5fL (81-100) Mean Corpuscular Hemoglobin 34.0pg (27.0-35.0) Mean Corpuscular Hemoglobin Concent 33.2% (32.0-37.0) Red Cell Distribution Width 19.7% (12.3-15.4) Platelet Count 286bil/L (150-400) Neutrophils (%) (Auto) 69.1% (40-74) Lymphocytes (%) (Auto) 11.2% (14-46) Monocytes (%) (Auto) 19.2% (4-12) Eosinophils (%) (Auto) 0.3% (0-5) Basophils (%) (Auto) 0% (0-3) Sodium Level 130mEq/L (134-144) Potassium Level 3.9mEq/L (3.5-5.2) Chloride Level 91mEq/L (97-108) Carbon Dioxide Level 26mmol/L (18-29) Blood Urea Nitrogen 24mg/dL (8-27) Creatinine 2.94mg/dL (0.76-1.27) Estimat Glomerular Filtration Rate 22mL/min (>59) Glucose Level 125mg/dL (60-99) Calcium Level 8.5mg/dL (8.5-10.1) Total Bilirubin 1.5mg/dL (0.0-1.2) Aspartate Amino Transf (AST/SGOT) 20U/L (0-50) Alanine Aminotransferase (ALT/SGPT) 11U/L (0-44) Alkaline Phosphatase 349U/L (25-160) Total Protein 5.6g/dL (6.4-8.4) Albumin 3.5g/dL (3.4-5.0) Procalcitonin 0.31ng/mL (See Comment) Discharge Medications Discharge Medications Allopurinol (Allopurinol) 100 Mg Tablet 100 MG PO DAILY (Reported) Aspirin (Aspirin) 81 Mg Tablet 81 MG PO DAILY (Reported) Atorvastatin Calcium (Atorvastatin Calcium) 10 Mg Tablet 10 MG PO HS (Reported) Cinacalcet (Sensipar) 30 Mg Tablet 30 MG PO DAILY (Reported) Diltiazem ER (Cardizem CD) 180 Mg Cap.er.24h 180 MG PO DAILY Prescribed by: CONSTANCE CAUSEY DO Fluoxetine (Fluoxetine) 20 Mg Capsule 20 MG PO BID (Reported) Furosemide (Furosemide) 80 Mg Tab 80 MG PO BID (Reported) Levofloxacin (Levofloxacin) 750 Mg Tablet 750 MG PO DAILY Prescribed by: CONSTANCE CAUSEY DO Multivitamin (Multi Vitamin Daily) 1 Each Tablet 1 EACH PO DAILY (Reported) Omeprazole (Omeprazole) 20 Mg Capsule.dr 20 MG PO BID (Reported) Potassium Chloride ER (Potassium Chloride ER) 10 Meq Tablet 10 MEQ PO BID ( Reported) TAKE WITH FOOD Sevelamer Carbonate (Renvela) 800 Mg Tablet 800 MG PO TIDWM (Reported) Vit B Comp/C/FA/Iron/Vit E (Vitamin B Complex Tablet) 1 Each Tablet 1 EACH PO DAILY (Reported) As needed Benzonatate (Benzonatate) 100 Mg Capsule 100 MG PO Q4H PRN PRN For Cough Prescribed by: CONSTANCE CAUSEY DO Diphenoxylate/Atropine (Diphenoxylate-Atrop 2.5-0.025) 2.5 Mg Tablet 1 EACH PO QID PRN PRN For Diarrhea or Loose Stool (Reported) Fluticasone Propionate (Fluticasone Propionate Nasal) 16 Gm [place].susp 2 SPRAY NS DAILY PRN PRN For Congestion (Reported) Hydrocodone-Acetaminophen 10-325 mg (Hydrocodone-Acetaminophen 10-325 mg) 1 Tab Tablet 1 EA PO QID PRN PRN For Pain (Reported) Additional med instructions New medications: Benzonatate 100 mg every 4 hours as needed for cough. Diltiazem 180 mg daily. Levofloxacin 750 mg to take on 08/30/16 x 1 dose. Continue medications: Allopurinol 100 mg daily. Aspirin 81 mg daily Atorvastatin 10 mg each bedtime. Cinacalcet 30 mg daily. Diphenoxylate/atropine 2.5 mg 4 times a day as needed for diarrhea. Fluoxetine 20 mg twice a day. Fluticasone 2 intranasal spray as needed for congestion. Furosemide 80 mg twice a day. Hydrocodone 10 mg 4 times a day as needed for pain. Multivitamin 1 daily. Omeprazole 20 mg daily. Potassium chloride 10 mEq twice a day. Sevelamer carbonate 100 mg 3 times a day with meals. Vitamin B complex one daily. Followup Plan Disposition: Home. . Follow-up plan Please follow-up with your primary care physician, Dr. Torres, in the next 1-2 weeks regarding your recent hospitalization. You are due for dialysis next Tuesday with Dr. Burroughs. . Discharge Diet: Renal Diet Discharge Activity: Limited until seen by PCP Follow-up Provider: Jordan Burroughs MD Provider: Siddharth Torres MD Attending Statement The patient was seen and examined together with Dr. Causey on 09-01-16 and I agree with the history, exam and plan as outlined in the note above. Constance Causey DO Aug 29, 2016 15:21 Lindsey Ernandez MD Sep 02, 2016 15:57
== END 2016-08-29 16:37 | disposition home or self-care (01) | DRG 291 ==
LOC: SED 10:10 → MOC 15:01 → PCC 19:54
PROVIDERS: ADMIT Internal Medicine; ATTEND Internal Medicine
PROC: 5A1D60Z (ICD-10-PCS; 2016-08-25)
PROC: 30233N1 Transfusion of Nonautologous Red Blood Cells into Peripheral Vein, Percutaneous Approach (ICD-10-PCS; 2016-08-25)
PROC: B51W1ZA Fluoroscopy of Dialysis Shunt/Fistula using Low Osmolar Contrast, Guidance (ICD-10-PCS; principal; 2016-08-27)
DX: I50.33 Acute on chronic diastolic (congestive) heart failure (principal); J18.9 Pneumonia, unspecified organism; N18.6 End stage renal disease; E87.1 Hypo-osmolality and hyponatremia; I12.0 Hypertensive chronic kidney disease with stage 5 chronic kidney disease or end stage renal disease; I13.2 Hypertensive heart and chronic kidney disease with heart failure and with stage 5 chronic kidney disease, or end stage renal disease; T82.41XA Breakdown (mechanical) of vascular dialysis catheter, initial encounter; D63.1 Anemia in chronic kidney disease; D64.9 Anemia, unspecified; I48.91 Unspecified atrial fibrillation; R33.9 Retention of urine, unspecified; G47.33 Obstructive sleep apnea (adult) (pediatric); E78.5 Hyperlipidemia, unspecified; M10.9 Gout, unspecified; Z79.82 Long term (current) use of aspirin; Z95.0 Presence of cardiac pacemaker; Z88.0 Allergy status to penicillin; Z99.2 Dependence on renal dialysis; Z98.84 Bariatric surgery status

== ENCOUNTER 2017-01-20 02:15 | Inpatient (IN) | payer MEDICARE, MEDICAID ==
[2017-01-20] VITALS (11 sets, daily range): BP systolic 105–135; BP diastolic 64–85; PULSE 75–108; RESP 14–20; O2SAT 95–100
[~2017-01-20] VITALS: Ht 180.3 cm; Wt 95.9 kg
[~2017-01-20 02:15] MED LIST changes: +BENZ100C8 PO; -CALC0.257 PO; -CARV6.252 PO; +CINA30TA PO; +DILT180C66 PO; -DOCU250C2 PO; -FURO80TA83 PO; +LEVO750T39 PO; +LOM PO; +SEVE800T7 PO
--- NOTE | 2017-01-20 02:30 | ED.REPORT ---
HPI-General Illness Date of Service January 20, 2017 ED Provider: Dr. Echols Pt is a 76 y/o male w/ a hx of current pneumonia, ESRD on dialysis (MWF), HTN, CHF, presenting to the ED via EMS c/o SOB onset today. The patient was diagnosed with pneumonia a few days ago by his PCP Dr. Torres and has been on Levaquin for 2 days. He missed his dialysis appointment yesterday because he was feeling unwell. He called the place and was told that he could come in today at 15:00 instead. He c/o associated peripheral edema, productive cough. Pt denies CP, nausea, vomiting. Nursing Notes Stated Complaint: SHORTNESS OF BREATH Chief Complaint: General Complaint Nursing Notes Reviewed: Yes Allergies: Coded Allergies: Cephalosporins (Verified Allergy, Severe, THROAT CLOSES, 08/25/16) Penicillins (Verified Allergy, Severe, Throat closes, 08/25/16) meperidine (Verified Allergy, Severe, hallucinations, 08/25/16) morphine (Verified Allergy, Severe, anaphylatic shock, 08/25/16) Sulfa (Sulfonamide Antibiotics) (Verified Allergy, Intermediate, Nausea, Vomiting, 08/25/16) cephalexin (Verified Allergy, Unknown, Nausea,Vomiting, 08/25/16) Scheduled Allopurinol (Allopurinol) 100 Mg Tablet 100 MG PO DAILY Aspirin (Aspirin) 81 Mg Tablet 81 MG PO DAILY Atorvastatin Calcium (Atorvastatin Calcium) 10 Mg Tablet 10 MG PO HS Cinacalcet (Sensipar) 30 Mg Tablet 30 MG PO DAILY Diltiazem ER (Cardizem CD) 180 Mg Cap.er.24h 180 MG PO DAILY Fluoxetine (Fluoxetine) 20 Mg Capsule 20 MG PO BID Furosemide (Furosemide) 80 Mg Tab 80 MG PO BID Levofloxacin (Levofloxacin) 750 Mg Tablet 750 MG PO DAILY Multivitamin (Multi Vitamin Daily) 1 Each Tablet 1 EACH PO DAILY Omeprazole (Omeprazole) 20 Mg Capsule.dr 20 MG PO BID Potassium Chloride ER (Potassium Chloride ER) 10 Meq Tablet 10 MEQ PO BID TAKE WITH FOOD Sevelamer Carbonate (Renvela) 800 Mg Tablet 800 MG PO TIDWM Vit B Comp/C/FA/Iron/Vit E (Vitamin B Complex Tablet) 1 Each Tablet 1 EACH PO DAILY Scheduled PRN Benzonatate (Benzonatate) 100 Mg Capsule 100 MG PO Q4H PRN PRN For Cough Diphenoxylate/Atropine (Diphenoxylate-Atrop 2.5-0.025) 2.5 Mg Tablet 1 EACH PO QID PRN PRN For Diarrhea or Loose Stool Fluticasone Propionate (Fluticasone Propionate Nasal) 16 Gm [place].susp 2 SPRAY NS DAILY PRN PRN For Congestion Hydrocodone-Acetaminophen 10-325 mg (Hydrocodone-Acetaminophen 10-325 mg) 1 Tab Tablet 1 EA PO QID PRN PRN For Pain General Time Seen by MD: 02:02 Chief Complaint Other (SOB) Hx Obtained From: Patient, EMS Arrived By: Ambulance Sudden in Onset?: No Onset Occurred: 9 - 12 hours ago Symptom Duration: Since onset Severity: Current: No pain currently Severity: Maximum: No pain Recent Healthcare: Recent doctor visit, Recent testing, Previous diagnosis, Prior workup Similar Sx Previous: Yes Past Medical History Past Medical History 1. Hypertension. 2. Distant history of dyslipidemia. 3. Left ventricular diastolic congestive heart failure 4. Atrial fibrillation/sick sinus syndrome. On March 24, 2010, a [employer] generator model number [id number], serial number [id number], was implanted; right atrial lead Medtronic model number 5076, serial number [id number]; right ventricular lead Medtronic, serial number [id number]. 5. Obstructive sleep apnea confirmed by sleep study (September 29, 2009). 6. Status post gastric stapling for morbid obesity. 7. ESRD on dialysis. 8. History of nephrolithiasis 9. Chronic urinary retention secondary to urethral stricture subsequent to post transurethral resection of the prostate. Reports: Congestive heart failure, Hypertension Past Surgical History Cardiac cath in 2011 Gastric bypass Bilateral extracorporeal shockwave Lithotripy in 2002. Transurethral resection of prostate Cholecystectomy Appendectomy Bilateral knee surguries Shoulder surgery Neck fusion in . 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 Physical Exam Vital Signs Vital Signs Date Time Temp Pulse Resp B/P Pulse Ox O2 Delivery O2 Flow Rate FiO2 01/20/17 02:50 36.7 78 105/71 98 Nasal Cannula 2 Initial VS: Reviewed, Vital signs normal Head / Eyes: Atraumatic, Normocephalic, PERRL ENT: Mucous membranes moist, Conjunctiva normal, No scleral icterus Neck: Supple, Full range of motion Abdomen / GI: Soft, Non-tender, No guarding, No rebound, No distention Skin: Warm, Dry, No cyanosis Neurologic: Alert, Oriented, Nonfocal Psychiatric: Mood/affect normal, Behavior normal, Normal thought content General/Constitutional: Awake, Alert, Cooperative, Not toxic appearing Appearance / Presentation: Positive: Ill appearing/not toxic Respiratory / Chest: No respiratory distress, No retractions, No stridor Rales bilaterally Rhoncherous cough Cardiovascular: Heart rate NL, No gallop Heart Sounds / Murmur: Positive: Systolic murmur present.. (II/) Lower Ext Edema: Positive: Bilateral 3+ Interpretation & Diagnostics Lab Results Interpretation Result Diagram: 01/20/17 0235 01/20/17 0235 Test 01/20/17 02:35 01/20/17 05:00 White Blood Count 6.6th/mm3 (3.8-10.1) Red Blood Count 1.97mil/mm3 (4.40-5.80) Hemoglobin 7.2g/dL (13.8-17.2) Hematocrit 21.2% (41.0-50.0) Mean Corpuscular Volume 107.6fL (81-100) Mean Corpuscular Hemoglobin 36.5pg (27.0-35.0) Mean Corpuscular Hemoglobin Concent 34.0% (32.0-37.0) Red Cell Distribution Width 23.0% (12.3-15.4) Platelet Count 321bil/L (150-400) Neutrophils (%) (Auto) 64.9% (40-74) Lymphocytes (%) (Auto) 19.5% (14-46) Monocytes (%) (Auto) 15.1% (4-12) Eosinophils (%) (Auto) 0.2% (0-5) Basophils (%) (Auto) 0% (0-3) Prothrombin Time 13.6sec (8.1-12.5) Prothromb Time International Ratio 1.26ratio Sodium Level 128mEq/L (134-144) Potassium Level 5.0mEq/L (3.5-5.2) Chloride Level 88mEq/L (97-108) Carbon Dioxide Level 22mmol/L (18-29) Blood Urea Nitrogen 60mg/dL (8-27) Creatinine 5.42mg/dL (0.76-1.27) Estimat Glomerular Filtration Rate 11mL/min (>59) Glucose Level 104mg/dL (60-99) Calcium Level 8.2mg/dL (8.5-10.1) Magnesium Level 1.9mg/dL (1.6-2.6) Total Bilirubin 0.9mg/dL (0.0-1.2) Aspartate Amino Transf (AST/SGOT) 14U/L (0-50) Alanine Aminotransferase (ALT/SGPT) 11U/L (0-44) Alkaline Phosphatase 232U/L (25-160) Pro-B-Type Natriuretic Peptide 68008og/mL (0-486) Total Protein 6.5g/dL (6.4-8.4) Albumin 3.8g/dL (3.4-5.0) Lipase 15U/L (13-60) Hold Lin Top Tube Received (Received) Urine Color Yellow (YELLOW) Urine Appearance Cloudy (CLEAR,HAZY) Urine pH 7.0 (5.0-8.0) Urine Specific [place] 1.011 (1.003-1.035) Urine Protein 30mg/dL (NEG,TRACE) Urine Glucose (UA) Negativemg/dL (NEGATIVE) Urine Ketones Negativemg/dL (NEGATIVE) Urine Occult Blood Small (NEGATIVE) Urine Nitrite Negative (NEGATIVE) Urine Bilirubin Negative (NEGATIVE) Urine Urobilinogen Normalmg/dL (NORMAL) Urine Leukocyte Esterase Large (NEGATIVE) Urine RBC 3-10/hpf (0-2) Urine WBC Packed/hpf (0-5) Urine Epithelial Cells Occasional/hpf (NONE-MOD) Urine Crystals None seen (NONE SEEN) Urine Bacteria Many/hpf (NONE-FEW) Urine Hyaline Casts None/lpf (NONE) Urine Granular Casts None seen (NONE SEEN) Urine Waxy Casts None seen (NONE SEEN) Urine Red Blood Cell Casts None seen (NONE SEEN) Urine White Blood Cell Casts None seen (NONE SEEN) Urine Mucus None seen (None Seen) Urine Trichomonas None seen (NONE SEEN) Urine Yeast None (NONE SEEN) Urine Culture Reflexed Indicated ECG Interpretation ECG Interpretation: Atrial fibrillation rate 92 Superimposed pacer spikes Only 1 apparent captured beat Numerous pacer spikes without accompanying capture Time: 02:40 Interpreted by: ED physician Normal ECG Interpretation: No acute ischemic changes X-Ray Chest Interpretation Chest Xray Interpretation: Large right pleural effusion Pulmonary edema View: Portable, 1 view Interpretation / Wet Read by: Wet read ED physician Re-Eval/Medical Decision Med Decision/Clinical Course 76-year-old end-stage renal disease skipped dialysis two days ago and is now short of breath with fluid overload. Potassium is only 5.0, and he is not acidotic. Does not need stat dialysis but urgent dialysis. Is a large right pleural effusion and a recent pneumonia. He is on Levaquin and afebrile with that. He is admitted now for dialysis this morning and continuation of his Levaquin. Time of Eval: 04:46 Re-Evaluation/Progress Note: Pt rechecked. Informed pt of need for admission. Pt understands and agrees with plan for admission. All questions addressed. Consultation : Referral / Consult Name: Boaz Rai MD Consulted With: Hospitalist Call Returned at: 04:46 Fryer Operator: Will see patient, Agrees with eval, Agrees with plan, Accepts admit Counseled Regarding: Diagnosis, Lab results, Need for admission Discharge & Departure Primary Impression: Fluid overload Hypervolemia type: unspecified Qualified Code: E87.70 - Fluid overload, unspecified Additional Impressions: Chronic renal failure Chronic kidney disease stage: stage 5 Qualified Code: N18.5 - Chronic kidney disease, stage 5 Pleural effusion, right Dialysis patient, noncompliant Community acquired bacterial pneumonia Disposition: ADMITTED TO HOSPITAL Discharge Condition All VS Reviewed: Yes Condition: Stable Referrals: Siddharth Torres MD (PCP) Will Attestation Portions of this note were transcribed by Paco Ye. I, Dr. Sousa personally performed the history, physical exam and medical decision-making; I reviewed and confirmed the accuracy of the information in the transcribed note. Signed by Will Trotter, 01/20/17 - 0816 copies to: Siddharth Torres MD, Christopher W MD January 20, 2017 02:30 PACO YE January 20, 2017 02:37
[2017-01-20 02:49] LABS: BASOPHILS % (AUTO) 0 % (0-3); EOSINOPHILS % (AUTO) 0.2 % (0-5); MONOCYTES % (AUTO) 15.1 % (4-12); Mean Corpuscular Hemoglobin 36.5 pg (27.0-35.0); Mean Corpuscular Volume 107.6 fL (81-100); NEUTROPHILS % (AUTO) 64.9 % (40-74); Platelet Count 321 bil/L (150-400)
[2017-01-20 03:02] LABS: INR 1.26 ratio
[2017-01-20 03:20] LABS: Magnesium 1.9 mg/dL (1.6-2.6)
[2017-01-20] MEDS ORDERED: Ondansetron 2 mg/mL 2 mL Inj IVPUSH PRN (04:50)
[2017-01-20] MEDS ORDERED: Polyethylene Glycol (PEG) 17 Gm Powder PO PRN (04:50)
[2017-01-20] MEDS ORDERED: Alum-Mag Hydrox-Simeth 30 mL Suspension PO PRN (04:50)
--- NOTE | 2017-01-20 05:16 | PCM.HPMED ---
Subjective Date of Service January 20, 2017 Primary Provider: Admitting Physician: Primary Care Physician: Siddharth Torres MD Attending Physician: Admit Status: From the Emergency Department, Full Admit, Remote Telemetry Chief Complaint: Shortness of breathe History of Present Illness: Jaswant Perez is a 76 y/o male with Chronic diastolic CHF, atrial fibrillation not on anticoagulation, hyperlipidemia, sick sinus syndrome status post pacemaker, hypertension, Endstage Renal disease on dialysis who came to [facility] emergency room due to shortness of breathe onset today. The patient was diagnosed with pneumonia a few days ago by his PCP Dr. Torres and has been on Levaquin for 2 days. He has been having non productive cough. He missed his dialysis appointment yesterday because he was feeling unwell and was so tired he could not get out of bed. Associated symptoms includes peripheral edema, night time sweats. Pt denies Chest pain, no nausea or vomiting. Denies any sick contacts at home He is compliant with all his medications. Rarely misses any antibiotics. He was hospitalized for pneumonia 08/15/16-08/29/16. Case discussed with Dr Echols, plan to admit patient for dialysis. Labs showed no hyperkalemia or acidosis. Oxygen supplemented. Review of Systems: Pertinent positives as noted in HPI. All other systems were reviewed and are negative Allergies Coded Allergies: Cephalosporins (Verified Allergy, Severe, THROAT CLOSES, 08/25/16) Penicillins (Verified Allergy, Severe, Throat closes, 08/25/16) meperidine (Verified Allergy, Severe, hallucinations, 08/25/16) morphine (Verified Allergy, Severe, anaphylatic shock, 08/25/16) Sulfa (Sulfonamide Antibiotics) (Verified Allergy, Intermediate, Nausea, Vomiting, 08/25/16) cephalexin (Verified Allergy, Unknown, Nausea,Vomiting, 08/25/16) Home Medications From [facility], not yet confirmed Jaswant Perez. [id number] 01/04/2017 03:30 PM 09/07 albuterol sulfate HFA 90 mcg/Actuation Aerosol Inhaler inhale 2 puff by INHALATION route every 4 - 6 hours as needed allopurinol 100 mg tablet take 1tab aspirin 81 mg chewable tablet chew 2 tablet by oral route every day ATORVASTATIN 10 MG TABLET take 1 tablet by mouth once daily for HIGH CHOLESTEROL calcitriol 0.5 mcg capsule TAKE ONE CAPSULE BY MOUTH EVERY OTHER DAY Curity Drainage Bag 2,000 mL suprabubic tube supplies Leung Catheter 20 Fr suprapubic tube supplies hydrocodone 10 mg-acetaminophen 325 mg tablet take 1 tablet by oral route every 6 hours as needed for pain Lasix 80 mg tablet take 1 tablet by oral route twice daily multivitamin Tab take 1 tablet by ORAL route every day with food OMEPRAZOLE DR 20 MG CAPSULE take 1 capsule by mouth twice a day before meals for ACID REFLUX potassium chloride ER 10 mEq tablet,extended release TAKE 1 TABLET (10MEQ) BY ORAL ROUTE EVERY DAY WITH FOOD Prozac 20 mg capsule take 1 capsule (20MG) by oral route twice every day. Vitamin B Complex Cap take 1 capsule by ORAL route every day PMH Chronic diastolic CHF, atrial fibrillation not on anticoagulation, hyperlipidemia, sick sinus syndrome status post pacemaker 2009 hypertension, JAMIE not on CPAP, ESRD on HD TTS for the last 6 months, suprapubic catheter for 12 years history of recurrent nephrolithiasis status post lithotripsy 2002 gout . Surgical History TURP and suprapubic catheter > 12 years status post lithotripsy 2002 Left arm AV fistula Gastric bypass surgery > 15 yrs Pacemaker insertion 2009 Cholecystectomy Appendectomy Bilateral knee surgery Shoulder surgery Cardiac catheterization 2012 Cervical spine surgery Family History His father at age 64 due to CAD, he had CABG before that His mom at age 98 Social History Hx Alcohol Use: Yes Alcoholic Drinks Per Day: varies Hx Substance Use: No Hx Tobacco Use: Yes (chew 1 can q 4 day ) Smoking Status: Former Smoker Living Arrangement: with Family (with and niece) Exam Vital Signs Vital Sign - Last Date Time Temp Pulse Resp B/P Pulse Ox O2 Delivery O2 Flow Rate FiO2 01/20/17 02:50 36.7 78 105/71 98 Nasal Cannula 2 Exam General: Alert, Oriented X3, Cooperative, No acute Distress Eyes: PERRLA, Scleral Anicteric Mouth: Mouth Normal, Mucous Membranes Moist/[place] Neck: Supple, no Thyromegaly, trachea central. Chest & Lungs: rales at bases right more then left Cardiovascular: Normal S1, Normal S2, No Rubs/Gallops, Regular Rate/Rhythm, systolic Murmur noted 2/6 grade Pulses: Radial (present and equal), Dorsalis Pedi (present and equal) Abdomen: Soft, Non-tender, Non-distended, Normoactive bowel tones. Musculoskeletal: Unremarkable. Normal range of motion, no swollen or erythematous joints Extremities: 3+ pitting edema, no cyanosis, no clubbing. Skin: No rashes. Warm and dry, no erythematous areas Neurological: Grossly neurologically intact, has generalized weakness, Normal Speech, Sensation Intact Lymphatic: Lymph nodes Cervical and Axillary not palpable. Lab and Diagnostics Labs Laboratory Tests Test 01/20/17 02:35 White Blood Count 6.6th/mm3 (3.8-10.1) Red Blood Count 1.97mil/mm3 (4.40-5.80) Hemoglobin 7.2g/dL (13.8-17.2) Hematocrit 21.2% (41.0-50.0) Mean Corpuscular Volume 107.6fL (81-100) Mean Corpuscular Hemoglobin 36.5pg (27.0-35.0) Mean Corpuscular Hemoglobin Concent 34.0% (32.0-37.0) Red Cell Distribution Width 23.0% (12.3-15.4) Platelet Count 321bil/L (150-400) Neutrophils (%) (Auto) 64.9% (40-74) Lymphocytes (%) (Auto) 19.5% (14-46) Monocytes (%) (Auto) 15.1% (4-12) Eosinophils (%) (Auto) 0.2% (0-5) Basophils (%) (Auto) 0% (0-3) Prothrombin Time 13.6sec (8.1-12.5) Prothromb Time International Ratio 1.26ratio Sodium Level 128mEq/L (134-144) Potassium Level 5.0mEq/L (3.5-5.2) Chloride Level 88mEq/L (97-108) Carbon Dioxide Level 22mmol/L (18-29) Blood Urea Nitrogen 60mg/dL (8-27) Creatinine 5.42mg/dL (0.76-1.27) Estimat Glomerular Filtration Rate 11mL/min (>59) Glucose Level 104mg/dL (60-99) Calcium Level 8.2mg/dL (8.5-10.1) Magnesium Level 1.9mg/dL (1.6-2.6) Total Bilirubin 0.9mg/dL (0.0-1.2) Aspartate Amino Transf (AST/SGOT) 14U/L (0-50) Alanine Aminotransferase (ALT/SGPT) 11U/L (0-44) Alkaline Phosphatase 232U/L (25-160) Pro-B-Type Natriuretic Peptide 37496pn/mL (0-486) Total Protein 6.5g/dL (6.4-8.4) Albumin 3.8g/dL (3.4-5.0) Lipase 15U/L (13-60) Hold Lin Top Tube Received (Received) Result Diagram: 01/20/175 01/20/17234 Assessment & Plan Jaswant Perez is a 76 y/o male with Chronic diastolic CHF, atrial fibrillation not on anticoagulation, hyperlipidemia, sick sinus syndrome status post pacemaker, hypertension, Endstage Renal disease on dialysis who came to [facility] emergency room due to shortness of breathe 1 Dyspnea, acute. Present on admission Multifactorial but likely caused by worsening diastolic CHF due to non compliance with dialysis sessions. Differential diagnosis includes Community acquired pneumonia as well as symptomatic anemia. Chest X ray showed pulmonary effusion in the right lung base, unclear if there are infiltrates. - treat underlying cause (see below) 2 Endstage Renal disease with missed dialysis. Present on admission due to Hypertensive Nephrosclerosis. Schedule is Tue,Tue, Tuesday and Tuesday - Continue home Lasix, Renvela, Sensipar - Consulted nephrology for inpatient dialysis - spray worker to discuss strategies to prevent missed dialysis 3 Acute on chronic Diastolic CHF. Present on admission Due to fluid overload due to missed ultra filtration with dialysis. Possible non compliance with medications BNP significantly elevated from past levels - Lasix 60 mg IV x 1 - Daily weights,I/O - continue Atorvastatin - will obtain a echocardiogram 4 Acute Hyponatremia. Present on admission Cause due heart failure and carries poor prognosis - treatment will be to treat heart failure 5 Acute on chronic anemia - chronic cause is anemia of ESRD. No evidence of acute blood loss anemia - will consider blood transfusion - Nephrology will continue with Budrit 6 Chronic Atrial Fibrillation Patient rate controlled without medications at baseline -not a candidate for anticoagulation due to history of bleeding. Continue aspirin - monitor on telemetry 7 Gout, continue allopurinol 8 JAMIE not on CPAP, address outpatient 9 Sick Sinus Syndrome s/p PPM,stable - Acetaminophen as needed for mild pain/fever/headache - Bowel regimen as needed - Antiemetic as needed Patient admitted under inpatient status with expected length of stay > 2 midnights for severity of present symptoms, complexities of treatment plan and risk for adverse event . Resuscitation Status: CPR: Attempt Resuscitation Boaz Rai MD January 20, 2017 05:16 Leung Catheter 20 Fr suprapubic tube supplies hydrocodone 10 mg-acetaminophen 325 mg tablet take 1 tablet by oral route every 6 hours as needed for pain Lasix 80 mg tablet take 1 tablet by oral route twice daily multivitamin Tab take 1 tablet by ORAL route every day with food OMEPRAZOLE DR 20 MG CAPSULE take 1 capsule by mouth twice a day before meals for ACID REFLUX potassium chloride ER 10 mEq tablet,extended release TAKE 1 TABLET (10MEQ) BY ORAL ROUTE EVERY DAY WITH FOOD Prozac 20 mg capsule take 1 capsule (20MG) by oral route twice every day. Vitamin B Complex Cap take 1 capsule by ORAL route every day Resuscitation Status: CPR: Attempt Resuscitation Boaz Rai MD January 20, 2017 05:16
[2017-01-20 05:37] LABS: APPEARANCE,URINE CLOUDY (CLEAR,HAZY); COLOR,URINE YELLOW (YELLOW)
[2017-01-20 05:38] LABS: OCCULT BLOOD,URINE SMALL (NEGATIVE); UROBILINOGEN,URINE NORMAL (NORMAL)
[2017-01-20] MEDS ORDERED: Furosemide 10 mg/mL 4 mL Inj IVPUSH ONE (05:40)
--- NOTE | 2017-01-20 06:49 | PCM.ADCARE ---
Advance Care Planning Note Purpose of Encounter: Active Diagnoses: Endstage Renal disease on hemodialysis Chronic Diastolic heart failure These active diagnoses are sufficient risk that focused discussion on advance car planning is indicated in order to allow the patient to thoughtfully consider personal goals of care and if situations arise that prevent the ability to personally give input to insure appropriate representation of their personal desires through documentation or informed surrogate decision makers Parties in Attendance: Patient and me Decisional Capacity: Good Goals of Care Determinations: I reviewed Prognosis for dialysis patient which is 60% mortality on 5 years as well as co morbidity of Chronic diastolic heart failure and his desires for ongoing aggressive care, including potential intubation and mechanical ventilation as well as CPR. Also discussed who would speak on his behalf should he be unable to do so, he states his Daysi Perez has Power of energy attorney. A POLST forma has been filled as per patient he understands his conditions for kidney disease and heart disease carry poor prognosis with no good treatment options available but he would wanna fight it. CODE STATUS: Full code Time Spent Adv.Care Planning: Total time spent [id number] in education and discussion directly related to Advance Care Plannin minutes Boaz Rai MD January 20, 2017 06:43
--- NOTE | 2017-01-20 07:32 | NUR ---
Admit to MOC pt arrived to unit at 0615 per fartun accompanied by aviation technician aircraft, pt unable to ambulate to bed, notable severe non pitting edema on BLE, pt a/o able to make needs known, pt noted IV SL on RFA, suprapubic catheter draining well, Left arm AVF with + bruit and thrill, oriented pt to room and call light system, Dr. Rai rounding at 0630, call light in reach at all times.
[2017-01-20] MEDS: Fluticasone 100 mCg Inhaler INHALATION SCH ×2 (08:50→20:49)
[2017-01-20] MEDS ORDERED: ASPI-973 PO (08:51)
--- NOTE | 2017-01-20 08:55 | DRSVH ---
PROCEDURE: X-RAY CHEST ONE VIEW, PORTABLE ([id number]) INDICATIONS: cough, missed dialysis TECHNIQUE: One view of the chest was acquired. COMPARISON: [facility], CR, XR CHEST 1VW (PORTABLE), 08/28/2016, 15:13. FINDINGS: Surgical changes and devices: Stable positioning of pacer. Low cervical spine fixation hardware. Lungs and pleura: Small right pleural effusion present increased from prior examination and there is mid/basilar bilateral airspace opacities. No pneumothorax. Mediastinum: Mediastinal contours appear normal. Heart size is normal. Bones and chest wall: No suspicious bony lesions. Overlying soft tissues appear unremarkable. IMPRESSION: 1. Increase in size of right pleural effusion. 2. Mid/basilar patchy airspace opacities consistent with atelectasis versus aspiration or pneumonia. Dictated by: Artie Carmona RRA Interpreted: Alondra Head MD on 01/20/2017 at 8:52 Transcribed by: CAMILLE on 01/20/2017 at 8:55 Approved by: Alondra Head MD, PhD on 01/20/2017 at 9:40
[2017-01-20] MEDS ORDERED: Darbepoetin Alfa (ESRD) 60 mCg/0.3 mL Inj SUBQ ONE (09:40)
--- NOTE | 2017-01-20 09:42 | CONS ---
[address] [address] CONSULTATION REPORT PATIENT: JOSE LUIS HASTINGS I : 1940 MR#: [id number] ADMIT: 01/20/2017 JOB ID: [id number] DATE: 01/20/2017 RENAL CONSULTATION: HISTORY: The patient is a very pleasant 76-year-old white male, who was admitted to [facility] for acute decompensated congestive heart failure. He has a history of end-stage renal disease and nephrology consultation is being sought for further evaluation and management of his chronic kidney disease. He states that he has a relatively recent history of end-stage renal disease dating back approximately eight months. He normally dialyzes on Tuesday, Tuesday and Tuesday at [facility]. He is followed by an outside delinquent account clerk. For the last several days, he states he has been having some increasing cough, shortness of breath, night sweats, orthopnea, wheezing, and cough productive of mucopurulent sputum. He went to see his primary care doctor and was started on Levaquin, as a result of this he missed dialysis. He also states that over the last several weeks he has had increasing lower extremity edema and worsening of his respiratory symptomatology. Although he denies any chest pain, he does state he gets dyspnea with minimal exertion and paroxysmal nocturnal dyspnea. He has a longstanding history of congestive heart failure and is followed by Dr. Sheridan for this. He denies a history of any asthma, emphysema or tuberculosis. However, he does state that he has a cough productive of sputum that has been long standing. However, his recent sputum production has changed. He also complains of some wheezing and dyspnea on exertion as detailed above. His chest x-ray shows pulmonary edema with fluid in the right middle fissure and a pleural effusion in his right base. The etiology of his renal failure is most secondary to chronic interstitial nephritis from recurring urinary tract infections due to a suprapubic catheter which has been in place for a number of years. He denies a history of any prostate cancer but states that he has enlarged prostate. He also has a longstanding history of frequent use of nonsteroidal anti-inflammatories which are obviously playing a role in his chronic kidney disease. He does have a history of hepatitis B in the past but denies a history of diabetes or hypertension. Otherwise he denies any recurrent nausea, vomiting, constipation, diarrhea, rash or arthralgias. He has had a significant weight loss following a gastric surgery for obesity. DATE OF SERVICE: PAST MEDICAL HISTORY: Is significant for: 1. End-stage renal disease, as detailed above. 2. Chronic interstitial nephritis with chronic recurring urinary tract infections. 3. Chronic anemia. 4. Congestive heart failure. 5. Pacemaker insertion. 6. Chronic pain syndrome for which she is followed by pain management. 7. Osteoarthritis. 8. Probable asthma. 9. Otherwise he denies a history of any prior stroke, seizure, thyroid illness, malignancy, upper or lower GI bleeds. PAST SURGICAL HISTORY: Is significant for: 1. A gastric stapling as detailed above. 2. Pacemaker insertion. 3. Left total knee replacement. 4. Left upper arm fistula. ALLERGIES: He is allergic to CEPHALOSPORINS, PENICILLIN, SULFANILAMIDE, CEPHALEXIN, MEPERIDINE and MORPHINE. SOCIAL HISTORY: He uses snuff and there is a remote history of tobacco use. 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 He states that until the last month or so he has been fairly active in his activities of daily living. REVIEW OF SYSTEMS: Is detailed above. Otherwise is negative for any history of hematemesis, hematochezia or melena. FAMILY HISTORY: Noncontributory. MEDICATIONS: At time of admission include allopurinol, aspirin, atorvastatin, Sensipar, diltiazem, fluoxetine, Lasix, Levaquin, omeprazole, potassium chloride, Renvela and vitamin D. PHYSICAL EXAMINATION: Revealed a pale, sallow complected 76-year-old white male who was alert and oriented x3, in no distress. His body habitus was within normal limits. He was neither obese nor cachectic. His blood pressure is 135/85, with a pulse rate of 87. HEENT examination is remarkable for pale sclerae and sallow complexion. There is some mild bitemporal wasting noted and his mucous membranes are moist. Cornea, conjunctivae, pupils, and extraocular muscles were intact. Neck is supple without adenopathy or thyromegaly. However, he did have jugular venous distention at 90 degrees elevation. Lungs showed diffuse rhonchi and scattered end-expiratory wheezes with diminished breath sounds in the right base. Heart was irregularly irregular. Abdomen is mildly distended but no free fluid wave was noted. There was no tenderness, rebound, guarding, masses or hepatosplenomegaly. Extremities do not show any evidence of any clubbing, cyanosis; however, he does have moderate pitting edema in both distal lower extremities. Half and half nails were noted. Skin turgor is good and there is no evidence of any rashes. LABORATORY EXAMINATION: On admission, his white count was 6.6, hemoglobin 7.2, hematocrit 21.2. MCV is 107. Platelet count and differential were normal. His sodium is 128, potassium 5.0, chloride of 88, bicarbonate of 22. BUN and creatinine were 60 and 5.42. His liver function studies were remarkable only for a mildly elevated alkaline phosphatase of 232. His PT is mildly elevated at 13.6 with an INR of 1.26. Urinalysis showed a specific gravity of 1.011, pH was 7. Tests for protein, occult blood and leukocyte esterase were positive. He had 3-10 RBCs per high-power field, packed WBCs per high-power field with many bacteria. As noted above, his chest x-ray was remarkable for pulmonary edema and a right pleural effusion. An echocardiogram done about a year ago showed an ejection fraction of 55%-60% with right atrial dilatation, mitral annular calcification. IMPRESSION: 1. End-stage renal disease-dialysis dependent. 2. Acute decompensated congestive heart failure. 3. Hypertension with hypertensive heart disease and hypertensive nephrosclerosis. 4. Chronic interstitial nephritis. 5. Acute complicated cystitis. 6. Anemia which appears to be multifactorial. 7. Macrocytosis. 8. Asthma. RECOMMENDATION: 1. The patient is to be dialyzed today for 4 hours on Revaclear max dialyzer, 3 potassium bath, 1200 of heparin bolus and 500 per hour, we will remove 3-4 L as tolerated. 2. I will also go ahead and start him on nebulizer treatments with DuoNeb and QVAR inhaler. 3. I would like to get GI involved to see if we can come up with a GI source for his acute anemia. 4. We will do isolated ultrafiltration tomorrow and give him 2 units of blood. I would also like to continue his antibiotics and await his cultures on his urine. I would also like to get a further evaluation of his right pleural effusion. Once again, I would like to thank you for allowing me to participate in the care of this most pleasant and interesting patient. I will be following him closely with you.
[2017-01-20] MEDS: Albuterol-Ipratropium 3 mL Inhalation Solution NEB SCH ×3 (10:21→20:49)
--- NOTE | 2017-01-20 11:21 | NUR ---
Social work note - Initial assessment Jaswant Perez is a 76 yr old admitted for CHF CRF, Pleural Effusion. EMR reviewed: Pt has [facility] and [employer] insurance. His PCP is Dr Torres. Readmit score not available. Pt refused DPOA paperwork - wants his to be decision maker. No LTC insurance, Pt is a but does not want to be service connected. See attached CM initial assessment. AGRICULTURAL COMMODITIES INSPECTOR met with pt - Introduced D/C planning and explained SW role. Pt lives at home with his and niece in [place]. He uses a 4WW and cane, shower chair at baseline - has an electric scooter that is not working at this time. He is getting dialysis at [facility] - is switching his dialysis to [facility] and Dr Ivey has accepted him. Kristen AGRICULTURAL COMMODITIES INSPECTOR from dialysis is at the hospital to meet pt and coordinate services. Pt still drives - admits he is getting weaker and needs more help. He is interested in [facility] for caregiving. AGRICULTURAL COMMODITIES INSPECTOR completed [facility] expedited referral, faxed clinicals to [employer]. [employer] confirmed receiving the fax and states that they will call Pt at home early next week to complete application. AGRICULTURAL COMMODITIES INSPECTOR explored additional supports - AGRICULTURAL COMMODITIES INSPECTOR asked MD for PT referral during interdisciplinary rounds. Pt states he is not sure he would want Home Health as he is already going to dialysis 3x a week and he is exhausted on his days off. Assessment: Pt who is more dependent on care and asking for assistance in his home - Pt identifies decline in level of functioning, would benefit from PT evaluation for SNF vs Home Health. Plan: Home with family in [place] - Outpt dialysis being established at [facility] [place]. [facility] referral completed. AGRICULTURAL COMMODITIES INSPECTOR will follow for PT/MD recommendations. LAURA Pandey Addendum: 01/20/17 at 1130 by INDIRA CASTELLON Amended: Links added.
--- NOTE | 2017-01-20 13:30 | NUR ---
Dialysis note: 4 hrs tx 4000 ml net UF Left upper arm fistula, accessed w/ no problems Pls see DTR for VS details Qb 400 Heparin given O2 @ 2L via NC on Fe TIBC and Hep B/C serologies drawn Aranesp 60 mcg IV given Tolerated tx, slept at intervals Fistula needle sites clotted w/in 10 min Report given to Nikolai AGUIRRE Stable condition at end of tx
[2017-01-20] MEDS: levoFLOXacin Inj 250 MG in IV Premix 1 EACH IV SCH (14:11)
[2017-01-20] MEDS ORDERED: PEG/Electrolytes 4,000 mL Solution PO ONE (16:00)
--- NOTE | 2017-01-20 16:11 | NUR ---
Dialysis Dialysis r/t to fluid overload today related to missing his dialysis appointment Tuesday. Has Dialysis Mondays, Wednesdays and Fridays. Patient reported SOB prior to dialysis. Contacted MD and obtained order for DuoNeb one time during dialysis. Orders for routine DuoNeb treatments. Patient reported relief of symptoms. Reported no ASE from dialysis treatment such as abdominal cramping or N/V. No abnormal blood pressure, Bp 132/80. Denied SOB after dialysis. SpO2 95% 3.5L via NC.
--- NOTE | 2017-01-20 17:15 | DRSVH ---
[facility] [address] [place] [address] Echocardiogram Report Name: JOSE LUIS HASTINGS ISkandi Date: 01/20/2017 Height: 71 in Hospital Exam Location: [facility] Weight: 210 lb Gender: Male BSA: 2.2 m2 : 1940 Age: 76 yrs BP: 135/85 mmHg Reason For Study: SOB Ordering Physician: HOSPITALIST [facility] Performed By: Julio César Wagoner Referring Physician: LOYD CRUZ Interpretation Summary The left ventricle is normal in size. Left ventricular wall thickness is mildly increased. Left ventricular systolic function is normal without focal wall motion abnormalities. The ejection fraction is estimated to be 55-60%. There has been no significant change since the previous study. The right ventricle is normal size. There is a pacemaker lead in the right ventricle. Right ventricular systolic function is borderline reduced. The right ventricular systolic pressure is estimated at 47 mmHg assuming a right atrial pressure of 15 mm Hg. Comparison with the previous study is not possible because this was unable to be assessed on the previous study. The left atrium is severely dilated. Right atrial size is normal. The aortic valve is moderately calcified. The peak aortic velocity is 3.2 m/sec. The peak aortic velocity on the previous exam was 2.70 m/sec. The aortic valve mean gradient is 24 mmHg. The calculated aortic valve area is 1.0 cm2. There is moderate aortic stenosis. There is no other significant valvular heart disease. The ascending aorta is mildly enlarged. Procedure: A two-dimensional transthoracic echocardiogram with color flow and Doppler was performed. The study quality was technically adequate. Comparison is made with the echocardiogram of 02/09/16. The patient was in atrial fibrillation with heart rates between 104-140 bpm during the exam. Left Ventricle: The left ventricle is normal in size. Left ventricular wall thickness is mildly increased. The LVOT velocity is 0.95 m/s. Left ventricular systolic function is normal without focal wall motion abnormalities. The ejection fraction is estimated to be 55-60%. There has been no significant change since the previous study. Diastolic function could not be accurately assessed due to atrial fibrillation. Right Ventricle: The right ventricle is normal size. There is a pacemaker lead in the right ventricle. Right ventricular systolic function is borderline reduced. Atria: The left atrium is severely dilated. Right atrial size is normal. There is no Doppler evidence for an atrial septal defect. Mitral Valve: The mitral valve leaflets are mildly calcified. There is mild to moderate mitral annular calcification. The mitral valve mean gradient is 3.9 mmHg. There is trace mitral regurgitation. Aortic Valve: The aortic valve is moderately calcified. The peak aortic velocity is 3.2 m/sec. The aortic valve mean gradient is 24 mmHg. There is moderate aortic stenosis. The calculated aortic valve area is 1.0 cm2. The peak aortic velocity on the previous exam was 2.70 m/sec. There is trace aortic regurgitation. Tricuspid Valve: The tricuspid valve is not well visualized, but is grossly normal. There is mild tricuspid regurgitation. The right ventricular systolic pressure is estimated at 47 mmHg assuming a right atrial pressure of 15 mm Hg. Comparison with the previous study is not possible because this was unable to be assessed on the previous study. Pulmonic Valve: The pulmonic valve is not well visualized. There is mild pulmonic regurgitation. There is no other significant valvular heart disease. Great Vessels: The aortic root is normal size. The ascending aorta is mildly enlarged. The aortic arch is normal in size. The pulmonary artery is not well visualized, but is probably normal size. The IVC is dilated (diameter is greater than 2.1 cm) and it collapses less than 50% with a sniff. This suggests a high right atrial pressure of 15 mm Hg. Pericardium/ Pleura There is no pericardial effusion. There is no pleural effusion. MMode/2D Measurements & Calculations LVIDd: 5.6 cm RA long axis LVOT diam: 2.1 cm LVIDs: 4.1 cm LA A2 area: 31.7 cm Ao root diam FS: 27.2 % LA A4 area: 34.0 cm RA area EPSS: 1.3 cm LA length (vol) asc Aorta Diam IVSd: 1.2 cm : 15.5 cm LVPWd: 0.96 cm LA vol: 128.1 ml RA vol Ao Arch Diam (Prox LA vol index : 39.5 ml Trans): 3.2 cm RA : 18.3 mm2 IVC diam: 2.7 cm LV avilez. diameter/BSA LV sys. diameter/BSA TAPSE: 1.7 cm (cm/m^2): 2.6 (cm/m^2): 1.9 Doppler Measurements & Calculations Ao V2 max MV E max randolph Med Peak E' Randolph TR max randolph : 323.8 cm/sec : 154.4 cm/sec : 280.5 cm/sec Ao max PG E/E' med: 23.3 TR max P.5 mmHg : 42.6 mmHg MVA(VTI): 2.2 cm2 Lat Peak E' Randolph Ao mean PG : 24.3 mmHg E/E' lat: 20.0 LVOT Max Randolph E/e' average : 94.6 cm/sec DIPAK(I,D) : 0.95 cm sev ratio MV V2 mean Ao V2 mean LV V1 max PG DIPAK indexed to BSA : 90.2 cm/sec : 232.2 cm/sec (cm^2/m^2): 0.44 MV mean PG Ao V2 VTI: 61.5 cmLV V1 VTI DIPAK(V,D): 1.00 cm2: 17.2 cm MV V2 VTI : 27.0 cm Reading Physician:JONATHAN
--- NOTE | 2017-01-20 17:17 | PCM.CHPMED ---
Subjective Date of Service: January 20, 2017 Primary Physician: Admitting Physician: Boaz Rai MD Primary Care Physician: Siddharth Torres MD Attending Physician: Boaz Rai MD Chief Complaint: Chief Complaint: Shortness of breath History of Present Illness: GI consult note 76-year-old male with a history of chronic diastolic heart failure, atrial fibrillation not on anticoagulation, sick sinus syndrome with pacemaker, hypertension and end-stage renal disease who presented to the emergency room due to shortness of breath. Patient was recently diagnosed with pneumonia by his PCP on Levaquin. Due to his pneumonia the patient missed a day of dialysis and when he presented he was severely fluid overloaded. Patient's additional symptoms include increased edema and night sweats. Patient denies all other review of systems including chest pain, nausea, vomiting, hematochezia/melena, or abdominal pain. On admission nephrology was consulted and the patient was dialyzed today. His labs on presentation show severe anemia with a hemoglobin of 7.2 and MCV of 107.6 demonstrate severe macrocytosis. Patient's chemistries are also notable for hyponatremia/hypochloremia, creatinine of 5.42, elevated alkaline phosphatase at 232. GI was consulted today due to unknown etiology for severe anemia. 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 Patient has been using 12-1400 mg of ibuprofen daily for the last few weeks but denies heartburn. States his diet is pretty balanced although is unable to describe it. Patient has never had a colonoscopy or EGD. Denies any history of cancer in his family and states as mother passed recently at the age of 95. Frequently travel between [place] and [place] but no other additional travel. Patient does take multivitamin and vitamin B complex and says that he is compliant with his medications. Review of Systems: See history of present illness PMH Past Medical History Chronic diastolic CHF, atrial fibrillation not on anticoagulation, hyperlipidemia, sick sinus syndrome status post pacemaker 2010 hypertension, JAMIE not on CPAP, ESRD on HD TTS for the last 6 months, suprapubic catheter for 12 years history of recurrent nephrolithiasis status post lithotripsy 2002 gout . Surgical History TURP and suprapubic catheter > 12 years status post lithotripsy 2003 Left arm AV fistula Gastric bypass surgery > 15 yrs Pacemaker insertion 2010 Cholecystectomy Appendectomy Bilateral knee surgery Shoulder surgery Cardiac catheterization 2012 Cervical spine surgery Home Medications Albuterol inhaler Allopurinol 100 mg tablet Aspirin 81 mg Atorvastatin 10 mg Calcitriol 0.5 g capsules Hydrocodone 10 mg-acetaminophen 325 mg tablet Lasix [address] 20 mg Potassium chloride ER 100 mEq Prozac 20 mg next thing vitamin B complex Allergies: Coded Allergies: Cephalosporins (Verified Allergy, Severe, THROAT CLOSES, 08/25/16) Penicillins (Verified Allergy, Severe, Throat closes, 08/25/16) meperidine (Verified Allergy, Severe, hallucinations, 08/25/16) morphine (Verified Allergy, Severe, anaphylatic shock, 08/25/16) Sulfa (Sulfonamide Antibiotics) (Verified Allergy, Intermediate, Nausea, Vomiting, 08/25/16) cephalexin (Verified Allergy, Unknown, Nausea,Vomiting, 08/25/16) Family History Family History His father at age 64 due to CAD, he had CABG before that His mom at age 98 No history of cancer including colon, liver, gastric, or pancreatic Social History Hx Alcohol Use: YesAlcoholic Drinks Per Day: variesHx Substance Use: NoHx Tobacco Use: Yes (chew 1 can q 4 day ) Smoking Status: Former Smoker Living Arrangement: with Family (with and niece) Exam Vital Signs Vital Sign - Last Date Time Temp Pulse Resp B/P Pulse Ox O2 Delivery O2 Flow Rate FiO2 01/20/17 16:50 102 20 98 Nasal Cannula 2.00 01/20/17 13:00 36.6 132/80 General: Alert, Oriented X3, Cooperative, No Acute Distress Chest & Lungs: Chest Wall Normal, Clear to auscultation & percussion Cardiovascular: Exam Unremarkable, Regular Rate/Rhythm Abdomen: Non-tender, Non-distended, Normoactive bowel tones Musculoskeletal: Unremarkable Extremities: No cyanosis/clubbing/edma bilat Neurological: Grossly Neurologically Intact, Cranial Nerves 2-12 Intact, Normal Speech, Sensation Intact Lab and Diagnostics Result Diagram: 01/20/175 01/20/17234 Assessment & Plan Assessment Assessment 76-year-old gentleman with CHF and pacemaker as well as end-stage renal disease who presented in fluid overload after missing dialysis due to pneumonia treated as an outpatient. On admission the patient was noted to have a sparing anemia with a hemoglobin of 7.2 and mcv of 107, which is decreased was baseline hemoglobin of approximately 9. Initially this was thought to be caused by a B12 /folate deficiency but the patient's history does not immediately support this idea. Patient has no recent alcohol consumption per his report and eats a balanced meal. On exam the patient also does not have neurological findings. Patient also presents with night sweats which could be concern for undiagnosed blood dyscrasia. In any case, a GI source is still within the differential, and if there is significant findings of gastritis this might help help to explain macrocytosis. Recommendations -Full workup of anemia including iron studies, B12/folate, peripheral smear, erythropoietin level, and consider haptoglobin level even though the bilirubin is not elevated -We will schedule the patient for EGD and colonoscopy tomorrow -Start [employer] -Repeat CBC -We will continue to follow along with you. Thank you for the consult on this most interesting patient. Problems: VTE Mechanical Devices: Venous Foot Pump Resuscitation Status: CPR: Attempt Resuscitation Marcelo Salinas DO January 20, 2017 17:17
[2017-01-20] MEDS ORDERED: Fluticasone 0.05% 15 Spray/2 Gm 16 Gm Nasal Spray NASAL PRN (17:35)
[2017-01-20] MEDS ORDERED: DiphenOXYlate-Atropine 2.5 mg-0.025 mg Tablet PO PRN (17:35)
[2017-01-20] MEDS: Diltiazem CD 180 mg ER24 Capsule PO SCH (18:28)
[2017-01-20] MEDS: HYDROcodone-APAP 10-325 mg PO PRN (18:28)
[2017-01-20 19:51] LABS: BASOPHILS % (AUTO) 0 % (0-3); EOSINOPHILS % (AUTO) 0 % (0-5); MONOCYTES % (AUTO) 14.9 % (4-12); Mean Corpuscular Hemoglobin 36.9 pg (27.0-35.0); Mean Corpuscular Volume 108.7 fL (81-100); NEUTROPHILS % (AUTO) 66.3 % (40-74); Platelet Count 379 bil/L (150-400)
[2017-01-21] VITALS (17 sets, daily range): BP systolic 93–138; BP diastolic 61–92; PULSE 93–128; RESP 16–22; O2SAT 97–100
[2017-01-21] MEDS: Albuterol-Ipratropium 3 mL Inhalation Solution NEB SCH ×5 (02:22→23:57)
--- NOTE | 2017-01-21 04:22 | NUR ---
GOLYTELY Upon introduction to pt, pt complained about Golytely asking for a tri-tip steak instead. RN encouraged pt to drink as much as he can to clear his bowels so the in endo can see more clearly. Pt understands and states "I'll drink as much as I can but I can't finish it because of my stomach." Pt explained stomach bypass history and how he can handle very little volume in his stomach. RN continued to encourage pt to drink as much as he can.
[2017-01-21] MEDS ORDERED: Lactated Ringer's 1,000 ML IV ONE (06:00)
[2017-01-21 07:29] LABS: Phosphorus 4.5 mg/dL (2.5-4.9)
[2017-01-21] MEDS: Pantoprazole 20 mg ER24 Tablet PO SCH ×2 (07:30→17:51)
[2017-01-21 07:31] LABS: BASOPHILS % (AUTO) 0.2 % (0-3); EOSINOPHILS % (AUTO) 2.1 % (0-5); MONOCYTES % (AUTO) 14.5 % (4-12); Mean Corpuscular Hemoglobin 37.3 pg (27.0-35.0); Mean Corpuscular Volume 104.4 fL (81-100); NEUTROPHILS % (AUTO) 66.4 % (40-74); Platelet Count 368 bil/L (150-400)
[2017-01-21] MEDS ORDERED: Non-Formulary Medication (Vit B Comp/C/FA/Iron/Vit E (Vitamin B Complex Tablet) 1 EACH) PO SCH (08:30)
[2017-01-21] MEDS: Potassium Citrate ER 10 mEq ER24 Tablet PO SCH ×2 (08:30→20:42)
[2017-01-21] MEDS: Vitamin B Complex/Vit C Tablet PO SCH (08:30)
[2017-01-21] MEDS: Fluticasone 100 mCg Inhaler INHALATION SCH ×2 (08:30→20:34)
--- NOTE | 2017-01-21 08:57 | DRSVH ---
PROCEDURE: X-RAY CHEST, TWO VIEWS ([id number]) INDICATIONS: Right pleura effusion TECHNIQUE: 2 views of the chest were acquired. COMPARISON: [facility], CR, XR CHEST 1VW (PORTABLE), 01/20/2017, 3:20. [facility], CR, CHEST 2VW, 01/11/2012, 12:23. FINDINGS: Surgical changes and devices: Lower cervical spine fixation hardware. Stable position of left pacer. Lungs and pleura: Small bibasilar pleural effusions persist as well as bibasilar airspace opacities, right greater than left. No pneumothorax. Mediastinum: Mediastinal contours are normal. Heart size is normal. Bones and chest wall: No suspicious bony abnormalities. Soft tissues appear unremarkable. IMPRESSION: 1. Persistent small basal pleural effusions and airspace opacities consistent with compressive atelec tasis and/or pneumonia. 2. Mild gaseous distention of several small bowel loops within the left upper quadrant. Recommend cl inical correlation and if indicated acute abdominal series could be performed to further characterize the bowel gas pattern. Dictated by: Artie Carmona [facility] Interpreted: Alondra Head MD on 01/21/2017 at 8:55 Transcribed by: CAMILLE on 01/21/2017 at 8:57 Approved by: Alondra Head MD, PhD on 01/21/2017 at 10:30
--- NOTE | 2017-01-21 08:59 | DRSVH ---
PROCEDURE: X-RAY RIGHT DECUBITUS CHEST ([id number]) INDICATIONS: Right pleura effusion TECHNIQUE: One view of the chest was acquired. COMPARISON: [facility], CR, XR CHEST 2VW, 01/20/2017, 17:41. FINDINGS: Right lateral decubitus chest film demonstrates moderate mobile right pleural effusion and persistent basal airspace opacity. Small left pleural effusion is present. Left cardiac pacer. Lower cervical spine fixation hardware redemonstrated. IMPRESSION: 1. Moderate mobile right pleural effusion and small left. Dictated by: Artie Carmona RRA Interpreted: Alondra Head MD on 01/21/2017 at 8:57 Transcribed by: CAMILLE on 01/21/2017 at 8:58 Approved by: Alondra Head MD, PhD on 01/21/2017 at 10:30
--- NOTE | 2017-01-21 10:27 | PCM.PNNEPH ---
Subjective Date of Service January 21, 2017 Subjective Pt. is breathing easier with nebs and inhaler, GI input appreciated. Exam Vital Signs Vital Sign - Last Date Time Temp Pulse Resp B/P Pulse Ox O2 Delivery O2 Flow Rate FiO2 01/21/17 08:00 100 20 99 Nasal Cannula 2.00 01/21/17 06:22 36.5 107/65 Intake and Output 01/20/17 01/20/17 01/21/17 Cumulative From/Thru 15:00 23:00 07:00 01/20/17 02:50 - 01/21/17 06:22 Intake Total 540 ml 1250 ml 1790 ml Output Total 4000 ml 450 ml 225 ml 4675 ml Balance -4000 ml 90 ml 1025 ml -2885 ml Intake Oral 480 ml 1250 ml 1730 ml IV Total 60 ml 60 ml Output Urine Total 450 ml 225 ml 675 ml Ultrafiltrate 4000 ml 4000 ml # Bowel Movements 1 3 4 Exam HEENT-pale sclera, Neck-sl. JVD at 60 degrees, Lungs scattered end expiratory wheezes but clearer, Heart RR, Abdomen soft, no tenderness or HSM,LE edema better Lab and Diagnostics Result Diagram: 01/21/17 0600 01/21/17 0600 Plan Impression Impression 1. ESRD #2 Anemia multifactorial #3 Asthma #4 Chronic interstitial nephritis Plans 1. Pt is to be dialyzed for 4 hours on a revaclear max dialyzer, 450 blood flow, 3 potassium bath, heparin and 500 no and the patient is given 2 units of packed red blood cells. We will also try to take 2-3 L of fluid off. Will Ivey DO January 21, 2017 10:27
--- NOTE | 2017-01-21 12:04 | PCM.PNMED ---
Subjective Date of Service January 21, 2017 Subjective breathing much improved after HD per patient. Exam Vital Signs Vital Sign - Last Date Time Temp Pulse Resp B/P Pulse Ox O2 Delivery O2 Flow Rate FiO2 01/21/17 08:00 100 20 99 Nasal Cannula 2.00 01/21/17 06:22 36.5 107/65 Intake and Output 01/20/17 01/20/17 01/21/17 Cumulative From/Thru 15:00 23:00 07:00 01/20/17 02:50 - 01/21/17 06:22 Intake Total 540 ml 1250 ml 1790 ml Output Total 4000 ml 450 ml 225 ml 4675 ml Balance -4000 ml 90 ml 1025 ml -2885 ml Intake Oral 480 ml 1250 ml 1730 ml IV Total 60 ml 60 ml Output Urine Total 450 ml 225 ml 675 ml Ultrafiltrate 4000 ml 4000 ml # Bowel Movements 1 3 4 Exam General: Alert, Oriented X3, Cooperative, No acute Distress Eyes: PERRLA, Scleral Anicteric Mouth: Mouth Normal, Mucous Membranes Moist/[place] Neck: Supple, no Thyromegaly, trachea central. Chest & Lungs: rales at bases right more then left Cardiovascular: Normal S1, Normal S2, No Rubs/Gallops, Regular Rate/Rhythm, systolic Murmur noted 2/6 grade Pulses: Radial (present and equal), Dorsalis Pedi (present and equal) Abdomen: Soft, Non-tender, Non-distended, Normoactive bowel tones. Suprapubic catheter in place. Musculoskeletal: Unremarkable. Normal range of motion, no swollen or erythematous joints Extremities: 3+ pitting edema, no cyanosis, no clubbing. Skin: No rashes. Warm and dry, no erythematous areas Neurological: Grossly neurologically intact, has generalized weakness, Normal Speech, Sensation Intact Lymphatic: Lymph nodes Cervical and Axillary not palpable. IVs and Medications Medications Reviewed: Medications were reviewed in detail Lab and Diagnostics Result Diagram: 01/21/17 0600 01/21/17 0600 X-Rays, CTs and MRIs PROCEDURE: X-RAY CHEST, TWO VIEWS ([id number]) INDICATIONS: Right pleura effusion TECHNIQUE: 2 views of the chest were acquired. COMPARISON: [facility], CR, XR CHEST 1VW (PORTABLE), 01/20/2017, 3: 20. [facility], CR, CHEST 2VW, 01/11/2012, 12:23. FINDINGS: Surgical changes and devices: Lower cervical spine fixation hardware. Stable position of left pacer. Lungs and pleura: Small bibasilar pleural effusions persist as well as bibasilar airspace opacities, right greater than left. No pneumothorax. Mediastinum: Mediastinal contours are normal. Heart size is normal. Bones and chest wall: No suspicious bony abnormalities. Soft tissues appear unremarkable. IMPRESSION: 1. Persistent small basal pleural effusions and airspace opacities consistent with compressive atelectasis and/or pneumonia. 2. Mild gaseous distention of several small bowel loops within the left upper quadrant. Recommend clinical correlation and if indicated acute abdominal series could be performed to further characterize the bowel gas pattern. Dictated by: Artie BROWN Interpreted: Alondra Head MD on 01/21/2017 at 8:55 Cardiac Echo Impressions Interpretation Summary The left ventricle is normal in size. Left ventricular wall thickness is mildly increased. Left ventricular systolic function is normal without focal wall motion abnormalities. The ejection fraction is estimated to be 55-60%. There has been no significant change since the previous study. The right ventricle is normal size. There is a pacemaker lead in the right ventricle. Right ventricular systolic function is borderline reduced. The right ventricular systolic pressure is estimated at 47 mmHg assuming a right atrial pressure of 15 mm Hg. Comparison with the previous study is not possible because this was unable to be assessed on the previous study. The left atrium is severely dilated. Right atrial size is normal. The aortic valve is moderately calcified. The peak aortic velocity is 3.2 m/sec. The peak aortic velocity on the previous exam was 2.70 m/sec. The aortic valve mean gradient is 24 mmHg. The calculated aortic valve area is 1.0 cm2. There is moderate aortic stenosis. There is no other significant valvular heart disease. The ascending aorta is mildly enlarged. Assessment & Plan Jaswant Perez is a 76 y/o male with Chronic diastolic CHF, atrial fibrillation not on anticoagulation, hyperlipidemia, sick sinus syndrome status post pacemaker, hypertension, Endstage Renal disease on dialysis who came to [facility] emergency room due to shortness of breathe # Dyspnea, acute. Present on admission Multifactorial but likely caused by worsening diastolic CHF due to non compliance with dialysis sessions. Differential diagnosis includes Community acquired pneumonia as well as symptomatic anemia. Chest X ray showed pulmonary effusion in the right lung base, unclear if there are infiltrates. - treat underlying cause (see below) # Endstage Renal disease with missed dialysis. Present on admission due to Hypertensive Nephrosclerosis. Schedule is Tue,Tue, Tuesday and Tuesday - Continue home Lasix, Renvela, Sensipar - Consulted nephrology for inpatient dialysis. Got dialysis on 01/20 and 01/21 -Patient will transfer care to [facility] nephrology group with # Acute on chronic anemia - chronic cause is likely anemia of ESRD. No evidence of acute blood loss anemia - will transfuse PRBC today 01/21 - Nephrology will continue with Procrit -Endoscopy and colonoscopy planned for tomorrow #Complicated UTI, acute -Urinalysis consistent with pyuria. Urine culture > 100,000 GNRs -Started Levaquin 250 every 48h after dialysis # Acute on chronic Diastolic CHF. Present on admission Due to fluid overload due to missed ultra filtration with dialysis. Possible non compliance with medications BNP significantly elevated from past levels - Lasix 60 mg IV x 1 - Daily weights,I/O - continue Atorvastatin - echocardiogram a above # Acute Hyponatremia. Present on admission Cause due heart failure and carries poor prognosis - treatment will be to treat heart failure # Chronic Atrial Fibrillation Patient rate controlled without medications at baseline -not a candidate for anticoagulation due to history of bleeding. Continue aspirin - monitor on telemetry # Gout, continue allopurinol # JAMIE not on CPAP, address outpatient # Sick Sinus Syndrome s/p PPM,stable -Pacemaker pacing inappropriately on T waves and PVCs. Interrogation requested to [employer] - Acetaminophen as needed for mild pain/fever/headache - Bowel regimen as needed - Antiemetic as needed Patient admitted under inpatient status with expected length of stay > 2 midnights for severity of present symptoms, complexities of treatment plan and risk for adverse event Disposition: Possible discharge in 2-3 days . VTE Mechanical Devices: Intermittant Pneumatic CD Resuscitation Status: CPR: Attempt Resuscitation Jose Alberto Benz MD January 21, 2017 12:03
--- NOTE | 2017-01-21 12:37 | NUR ---
Endo reschedule Pt has been unable to tolerate and has not consumed adequate bowel prep. R/t this, endo has been scheduled for tomorrow instead. Pt will c/t have bowel prep as much as possible today to finish the course.
--- NOTE | 2017-01-21 12:41 | NUR ---
Pacemaker Informed by tele that pts pacemaker is not functioning properly. Dr sanford aware, and the manufacture [employer] was contacted. They will come tomorrow morning to work on it. Pt is asymptomatic.
--- NOTE | 2017-01-21 13:23 | PCM.PNMED ---
Subjective Date of Service January 21, 2017 Subjective GI progress note Overnight the patient was unable to drink enough GoLYTELY to have a colonoscopy done today. He states that his film follow-up pattern is really not looking forward to the prep. Hemoglobin and hematocrit are stable with an MCV of 104.4 which is decreased from yesterday. Denies review of systems. Seen in dialysis. Exam Vital Signs Vital Sign - Last Date Time Temp Pulse Resp B/P Pulse Ox O2 Delivery O2 Flow Rate FiO2 01/21/17 12:02 36.6 119 20 122/70 01/21/17 08:33 100 Nasal Cannula 2.00 Intake and Output 01/20/17 01/20/17 01/21/17 Cumulative From/Thru 15:00 23:00 07:00 01/20/17 02:50 - 01/21/17 06:22 Intake Total 540 ml 1250 ml 1790 ml Output Total 4000 ml 450 ml 225 ml 4675 ml Balance -4000 ml 90 ml 1025 ml -2885 ml Intake Oral 480 ml 1250 ml 1730 ml IV Total 60 ml 60 ml Output Urine Total 450 ml 225 ml 675 ml Ultrafiltrate 4000 ml 4000 ml # Bowel Movements 1 3 4 Exam General: Alert, Oriented X3, Cooperative, No Acute Distress Chest & Lungs: Chest Wall Normal, Clear to auscultation & percussion Cardiovascular: Exam Unremarkable, Regular Rate/Rhythm Abdomen: Non-tender, Non-distended, Normoactive bowel tones Extremities: No cyanosis/clubbing/edma bilat IVs and Medications Medications Reviewed: Medications were reviewed in detail Lab and Diagnostics Result Diagram: 01/21/17 0600 01/21/17 0600 X-Rays, CTs and MRIs PROCEDURE: X-RAY CHEST, TWO VIEWS ([id number]) INDICATIONS: Right pleura effusion TECHNIQUE: 2 views of the chest were acquired. COMPARISON: [facility], CR, XR CHEST 1VW (PORTABLE), 01/20/2017, 3: 20. [facility], CR, CHEST 2VW, 01/11/2012, 12:23. FINDINGS: Surgical changes and devices: Lower cervical spine fixation hardware. Stable position of left pacer. Lungs and pleura: Small bibasilar pleural effusions persist as well as bibasilar airspace opacities, right greater than left. No pneumothorax. Mediastinum: Mediastinal contours are normal. Heart size is normal. Bones and chest wall: No suspicious bony abnormalities. Soft tissues appear unremarkable. IMPRESSION: 1. Persistent small basal pleural effusions and airspace opacities consistent with compressive atelectasis and/or pneumonia. 2. Mild gaseous distention of several small bowel loops within the left upper quadrant. Recommend clinical correlation and if indicated acute abdominal series could be performed to further characterize the bowel gas pattern. Dictated by: Artie BROWN Interpreted: Alondra Head MD on 01/21/2017 at 8:55 Cardiac Echo Impressions Interpretation Summary The left ventricle is normal in size. Left ventricular wall thickness is mildly increased. Left ventricular systolic function is normal without focal wall motion abnormalities. The ejection fraction is estimated to be 55-60%. There has been no significant change since the previous study. The right ventricle is normal size. There is a pacemaker lead in the right ventricle. Right ventricular systolic function is borderline reduced. The right ventricular systolic pressure is estimated at 47 mmHg assuming a right atrial pressure of 15 mm Hg. Comparison with the previous study is not possible because this was unable to be assessed on the previous study. The left atrium is severely dilated. Right atrial size is normal. The aortic valve is moderately calcified. The peak aortic velocity is 3.2 m/sec. The peak aortic velocity on the previous exam was 2.70 m/sec. The aortic valve mean gradient is 24 mmHg. The calculated aortic valve area is 1.0 cm2. There is moderate aortic stenosis. There is no other significant valvular heart disease. The ascending aorta is mildly enlarged. Assessment & Plan Assessment 76-year-old gentleman with CHF and pacemaker as well as end-stage renal disease who presented in fluid overload after missing dialysis due to pneumonia treated as an outpatient. On admission the patient was noted to have a sparing anemia with a hemoglobin of 7.2 and mcv of 107, which is decreased was baseline hemoglobin of approximately 9. Initially this was thought to be caused by a B12 /folate deficiency but the patient's history does not immediately support this idea. Patient has no recent alcohol consumption per his report and eats a balanced meal. On exam the patient also does not have neurological findings. Patient also presents with night sweats which could be concern for undiagnosed blood dyscrasia. In any case, a GI source is still within the differential, and if there is significant findings of gastritis this might help help to explain macrocytosis. Recommendations -Same as yesterday; await anemia workup findings -Kathia mattson -egd/ colonoscopy mac tomorrow (sat) -We will continue to follow VTE Mechanical Devices: Intermittant Pneumatic CD Resuscitation Status: CPR: Attempt Resuscitation Marcelo Salinas DO January 21, 2017 13:23 George Spence MD January 21, 2017 13:37
--- NOTE | 2017-01-21 13:30 | NUR ---
Dialysis note: 4 hrs tx 3800 ml UF (3000 ml net + 800 ml for blood volume) Left upper arm fistula, accessed w/ no problems Pls see DTR for VS details Qb 450-500 No heparin given O2 @ 2L via NC on 2 units PRBC given with no problems Tolerated tx, slept at intervals Fistula needle sites clotted w/in 10 min Report given to Nikolai AGUIRRE Stable condition at end of tx
[2017-01-21] MEDS: HYDROcodone-APAP 10-325 mg PO PRN (13:58)
[2017-01-21] MEDS: Diltiazem CD 180 mg ER24 Capsule PO SCH (13:58)
[2017-01-21] MEDS: guaiFENesin 20 mg/mL 10 mL Syrup PO PRN (14:36)
[2017-01-22] VITALS (11 sets, daily range): BP systolic 103–135; BP diastolic 63–83; PULSE 93–114; RESP 14–20; O2SAT 95–100
--- NOTE | 2017-01-22 00:46 | NUR ---
SALES SPECIALIST; reports: afib heart rate 110.
--- NOTE | 2017-01-22 03:00 | NUR ---
GI; "im drinking as fast as I can" pt stated. Approx. 950 cc left of colyte prep. Bowel movements are liquid with many bits of pieces in it.
[2017-01-22] MEDS: Albuterol-Ipratropium 3 mL Inhalation Solution NEB SCH (04:48)
--- NOTE | 2017-01-22 05:52 | NUR ---
GI; approx 800cc left to drink. Pt stated "I think that's about all your going to get out of me". Reiterated importance of drinking it all.
[2017-01-22 06:12] LABS: Vitamin B12 1317 pg/mL (211-946)
[2017-01-22 06:56] LABS: BASOPHILS % (AUTO) 0 % (0-3); EOSINOPHILS % (AUTO) 0.8 % (0-5); MONOCYTES % (AUTO) 14.5 % (4-12); Mean Corpuscular Hemoglobin 34.2 pg (27.0-35.0); Mean Corpuscular Volume 101.9 fL (81-100); NEUTROPHILS % (AUTO) 56.2 % (40-74); Platelet Count 296 bil/L (150-400)
--- NOTE | 2017-01-22 07:11 | PCM.HPANE ---
Patient Data Surgeon Admitting Provider:Boaz Rai MD Attending Provider:Boaz Rai MD Primary Care Physician:Siddharth Torres MD Other Provider: Reason for Visit Chf,Crf, R Pleural Effusion Ht/WT & BMI Height (Feet): 5 Height (Inches): 11.00 Weight (Kilograms): 91.900 Body Mass Index 29.41 Allergies Coded Allergies: Cephalosporins (Verified Allergy, Severe, THROAT CLOSES, 08/25/16) Penicillins (Verified Allergy, Severe, Throat closes, 08/25/16) meperidine (Verified Allergy, Severe, hallucinations, 08/25/16) morphine (Verified Allergy, Severe, anaphylatic shock, 08/25/16) Sulfa (Sulfonamide Antibiotics) (Verified Allergy, Intermediate, Nausea, Vomiting, 08/25/16) cephalexin (Verified Allergy, Unknown, Nausea,Vomiting, 08/25/16) Past Anesthesia History Anesthesia History: Denies:: Anesthesia Reactions, Fam Anesthesia Reaction Diabetes History Hx Diabetes?: No MRSA MRSA: No Medications Blood Thinner: Aspirin Active Scripts Levofloxacin 750 Mg Kaqtra266 Mg PO DAILY #1 TABLET Prov:Renay Spring DO 08/29/16 Benzonatate 100 Mg Ectzdsc231 Mg PO Q4H PRN For Cough #30 CAPSULE Ref 0 Prov:Renay Spring DO 08/29/16 Diltiazem ER (Cardizem CD)180 Mg Cap.er.07k042 Mg PO DAILY #30 TABLET Ref 0 Prov:Renay Sprign DO 08/29/16 Reported Medications Aspirin 81 Mg Egkrtv587 Mg PO DAILY Ref 0 01/20/17 Diphenoxylate/Atropine (Diphenoxylate-Atrop 2.5-0.025)2.5 Mg Tablet1 Each PO QID PRN For Diarrhea or Loose Stool 08/25/16 Sevelamer Carbonate (Renvela)800 Mg Ocrrzy957 Mg PO TIDWM 08/25/16 Cinacalcet (Sensipar)30 Mg Jcgjfi77 Mg PO DAILY 08/25/16 Allopurinol 100 Mg Rbgnox145 Mg PO DAILY 08/25/16 Atorvastatin Calcium 10 Mg Fkclkj77 Mg PO HS 06/19/15 Furosemide 80 Mg Tab80 Mg PO BID 06/19/15 Potassium Chloride ER 10 Meq Ffjyoo35 Meq PO BID TAKE WITH FOOD 06/02/15 Omeprazole 20 Mg Capsule.dr20 Mg PO BID 06/02/15 Multivitamin (Multi Vitamin Daily)1 Each Tablet1 Each PO DAILY 06/02/15 Fluticasone Propionate (Fluticasone Propionate Nasal)16 Gm Pacific[place].susp2 [place] NS DAILY PRN For Congestion 06/02/15 Hydrocodone-Acetaminophen 10-325 mg 1 Tab Tablet1 Ea PO QID PRN For Pain 10/10/14 Fluoxetine 20 Mg Sbwxiwi41 Mg PO BID 10/10/14 Vit B Comp/C/FA/Iron/Vit E (Vitamin B Complex Tablet)1 Each Tablet1 Each PO DAILY 07/10/14 Discontinued Reported Medications Aspirin 81 Mg Xrbnxz05 Mg PO DAILY 06/02/15 History History of ENT Problems?: Yes HEENT History: Positive for:: Hearing Problem (hearing aids on order) Sinus Problem (infections now and then) Denies:: Cataracts Dysphagia TMJ Denture Type: None Full- Upper Full- Lower Teeth Condition: No Teeth Hx of Heart Problems?: Yes Cardiovascular History: Positive for:: Cardiac Surgery (pacer) Chest Pain Congestive Heart Failure Edema Hypertension Irregular Heartbeat (Atrial fibrillation/SSS) Pacemaker Denies:: Heart Murmur Thrombophlebitis Hx of Respiratory Problem?: Yes Respiratory History: Positive for:: Dyspnea (wheezes when walks ) Pneumonia Denies:: Asthma COPD Chest Surgery Emphysema Hemoptysis Tuberculosis Use of C-PAP Machine (cannot tolerate CPAP) Hx Neurologic Problems?: Yes Neurological History: Denies:: Alzheimer's Disease CVA Dementia Dizziness Headaches Multiple Sclerosis Parkinson's Disease Seizures Hx of GI Problems?: Yes Hx of Problems?: Yes Genitourinary History: Positive for:: HX of Hemodialysis Kidney Stones (lithrotripsy) Urinary Tract Infection (chronic urinary retention; has suprapubic catheter) HX of Peritoneal Dialysis: No Male Hx: Positive for:: Prostate Problems Denies:: Scrotal Mass Testicular Surgery Skin History: Denies:: History Skin Disorders? (bruise easily) Pressure Ulcers Hx Musculoskeletal Problems?: Yes Musculoskeletal History: Positive for:: Back Injury (cervical fusion in past) Degenerative Joint Joint Replacement (left TKA) Denies:: Musculoskeletal Trauma Hx of Psycho/Social Problems?: Yes Psycho Social History: Positive for:: Hx Depression Denies:: Anxiety Bipolar Disorder Suicide Attempt Hx Surgeries?: Yes (L knee, Gastric bypass, stomach stapling, l shoulder, cervical fusion) Hx Any Other Health Problems?: Yes Other History: Positive for:: Hospitalization (Pneumonia, Kidney Failure ) Denies:: Cancer Endocrine Disease Thyroid Disease History Blood Transfusions: Positive for:: Accept Blood Products? Blood Transfuse Reaction Blood Transfusions Hx Diabetes: No Hx Alcohol Use: YesAlcoholic Drinks Per Day: variesHx Substance Use: No Smoking Status: Former Smoker Have You Smoked inLast 12 mo: YesApprox How Many Cigarettes/day: 5-10 Stop/Bang Treated for Sleep Apnea?: Yes Do You Have a CPAP Machine?: Yes (pt reports non compliance) S-Snoring: Do You Snore Loudly: No T-Tired: feel tired, fatigued: Yes O-Obsered: Observed not breath: No P-Blood Pressure: treated: Yes B- Body Mass Index > 35 kg/m2: No A- Age over 50: Yes N- Neck Large Circumference: No G- Gender Male: Yes JAMIE Total Score: 3 JAMIE Risk Assessment: High Risk, =/>3 Yes Risk Assessment Category Category 1A: Patient has history of documented sleep apnea, and HAS NOT received any narcotic, sedative or anesthesia administration during this stay. Category 1B: Patient has history of documented sleep apnea, and HAS received any narcotic , sedative or anesthesia administration during this stay Category 2: Patient has SUSPECTED Obstructive Sleep Apnea, and HAS received any narcotic , sedative or anesthesia administration during this stay. Category 3: Patient has SUSPECTED Obstructive Sleep Apnea and HAS NOT received narcotic, sedative or anesthesia administration during this stay. Category 4: Outpatient in Procedural Areas with known sleep apnea or who screen positive for High Risk via the STOP/BANG questionnaire. Exam Exam Vital Signs Vital Signs Date Time Temp Pulse Resp B/P Pulse Ox O2 Delivery O2 Flow Rate FiO2 01/22/17 06:36 37.0 103 18 115/73 96 Room Air 01/22/17 05:54 103 01/22/17 02:18 37.0 108 20 103/63 98 Room Air 01/21/17 23:57 98 20 98 Nasal Cannula 2.00 General Appearance: Alert, Oriented X3, Cooperative, No Acute Distress HEENT/AIRWAY: MP 2 Lungs: Clear to Auscultation, Normal Air Movement Heart: Exam Unremarkable, Regular Rate/Rhythm, No Murmurs/Rubs/Gallops Meds/Labs/Diagnostics Admission Meds Current Medications Sevelamer Carbonate (Renvela) 800 mg TIDWM PO Last administered on 01/21/17 17 :51; Start 01/21/17 at 08:00 Pantoprazole (Protonix) 20 mg BIDAC PO Last administered on 01/21/17 17:51; Start 01/21/17 at 07:30 Potassium Citrate (Urocit-K) 10 meq BID PO Last administered on 01/21/17 20:42 ; Start 01/21/17 at 08:30 Labs Test 01/20/17 02:35 01/20/17 05:00 01/20/17 10:30 01/20/17 19:43 Prothrombin Time 13.6sec (8.1-12.5) Prothromb Time International Ratio 1.26ratio Magnesium Level 1.9mg/dL (1.6-2.6) Iron Level ug/dL (35-150) Total Iron Binding Capacity ug/dL (250-450) Percent Iron Saturation %sat (15-50) Unsaturated Iron Binding ug/dL Pro-B-Type Natriuretic Peptide 79203kf/mL (0-486) Lipase 15U/L (13-60) Hold Lin Top Tube Received (Received) Urine Color Yellow (YELLOW) Urine Appearance Cloudy (CLEAR,HAZY) Urine pH 7.0 (5.0-8.0) Urine Specific Raymond 1.011 (1.003-1.035) Urine Protein 30mg/dL (NEG,TRACE) Urine Glucose (UA) Negativemg/dL (NEGATIVE) Urine Ketones Negativemg/dL (NEGATIVE) Urine Occult Blood Small (NEGATIVE) Urine Nitrite Negative (NEGATIVE) Urine Bilirubin Negative (NEGATIVE) Urine Urobilinogen Normalmg/dL (NORMAL) Urine Leukocyte Esterase Large (NEGATIVE) Urine RBC 3-10/hpf (0-2) Urine WBC Packed/hpf (0-5) Urine Epithelial Cells Occasional/hpf (NONE-MOD) Urine Crystals None seen (NONE SEEN) Urine Bacteria Many/hpf (NONE-FEW) Urine Hyaline Casts None/lpf (NONE) Urine Granular Casts None seen (NONE SEEN) Urine Waxy Casts None seen (NONE SEEN) Urine Red Blood Cell Casts None seen (NONE SEEN) Urine White Blood Cell Casts None seen (NONE SEEN) Urine Mucus None seen (None Seen) Urine Trichomonas None seen (NONE SEEN) Urine Yeast None (NONE SEEN) Urine Culture Reflexed Indicated Hepatitis B Surface Antigen Negative (Negative) Hepatitis B Surface Antibody Reactive (.) Hepatitis B Core Total Antibody Positive (Negative) Hepatitis C Antibody <0.1s/co ratio (0.0-0.9) Hematology Comments Rbc Test 01/21/17 06:00 01/21/17 10:00 01/22/17 06:40 Phosphorus Level 4.5mg/dL (2.5-4.9) Vitamin B12 Level 1317pg/mL (211-946) Folate 17.8ng/mL (>3.0) Procalcitonin 1.95ng/mL (0.00-0.08) HIV (1&2) Ag and Ab, 4th Generation Non reactive (Non Reactive) White Blood Count 3.8th/mm3 (3.8-10.1) Red Blood Count 2.69mil/mm3 (4.40-5.80) Hemoglobin 9.2g/dL (13.8-17.2) Hematocrit 27.4% (41.0-50.0) Mean Corpuscular Volume 101.9fL (81-100) Mean Corpuscular Hemoglobin 34.2pg (27.0-35.0) Mean Corpuscular Hemoglobin Concent 33.6% (32.0-37.0) Red Cell Distribution Width 25.1% (12.3-15.4) Platelet Count 296bil/L (150-400) Neutrophils (%) (Auto) 56.2% (40-74) Lymphocytes (%) (Auto) 28.0% (14-46) Monocytes (%) (Auto) 14.5% (4-12) Eosinophils (%) (Auto) 0.8% (0-5) Basophils (%) (Auto) 0% (0-3) Plan Impression Patient chart reviewed, patient interviewed and anesthestic plan with risks, benefits, and alternatives discussed, and informed consent obtained. NPO per Anesth. Guidelines: Yes ASA Physical Status: ASA3 Severe Disease Anesthetic Plan: MAC Bene/Risks/Altern/Consents: Yes HP Complete Prior to Induction: Yes Abdiaziz Monk MD January 22, 2017 07:11
[2017-01-22] MEDS: Fluticasone 100 mCg Inhaler INHALATION SCH ×2 (08:17→21:31)
[2017-01-22] MEDS: Pantoprazole 20 mg ER24 Tablet PO SCH ×2 (08:17→16:17)
[2017-01-22] MEDS: levoFLOXacin Inj 250 MG in IV Premix 1 EACH IV SCH (08:18)
[2017-01-22] MEDS ORDERED: Diltiazem CD 180 mg ER24 Capsule PO SCH (08:30)
--- NOTE | 2017-01-22 08:56 | NUR ---
PATRICK signed. Dipika Burton ONLINE PROJECT MANAGER
[2017-01-22] MEDS: Vitamin B Complex/Vit C Tablet PO SCH (09:35)
[2017-01-22] MEDS: Potassium Citrate ER 10 mEq ER24 Tablet PO SCH ×2 (09:35→20:30)
--- NOTE | 2017-01-22 10:30 | PCM.PNMED ---
Subjective Date of Service January 22, 2017 Subjective Transfused blood 01/21 and hemoglobin responded appropriately. Dyspnea continues to improve. Awaiting endoscopy and colonoscopy Exam Vital Signs Vital Sign - Last Date Time Temp Pulse Resp B/P Pulse Ox O2 Delivery O2 Flow Rate FiO2 01/22/17 09:15 36.8 102 20 118/66 96 Room Air 01/21/17 23:57 2.00 Intake and Output 01/21/17 01/21/17 01/22/17 Cumulative From/Thru 15:00 23:00 07:00 01/20/17 02:50 - 01/22/17 04:19 Intake Total 800 ml 1050 ml 1150 ml 4790 ml Output Total 3800 ml 900 ml 200 ml 9575 ml Balance -3000 ml 150 ml 950 ml -4785 ml Intake Oral 1000 ml 1150 ml 3880 ml IV Total 100 ml 50 ml 210 ml Packed Cells 700 ml 700 ml Output Urine Total 100 ml 200 ml 975 ml Stool Total 800 ml 800 ml Ultrafiltrate 3800 ml 7800 ml # Bowel Movements 4 8 Exam General: Alert, Oriented X3, Cooperative, No acute Distress Eyes: PERRLA, Scleral Anicteric Mouth: Mouth Normal, Mucous Membranes Moist/[place] Neck: Supple, no Thyromegaly, trachea central. Chest & Lungs: rales at bases right more then left Cardiovascular: Normal S1, Normal S2, No Rubs/Gallops, Regular Rate/Rhythm, systolic Murmur noted 2/6 grade Pulses: Radial (present and equal), Dorsalis Pedi (present and equal) Abdomen: Soft, Non-tender, Non-distended, Normoactive bowel tones. Suprapubic catheter in place. Musculoskeletal: Unremarkable. Normal range of motion, no swollen or erythematous joints Extremities: 3+ pitting edema, no cyanosis, no clubbing. Skin: No rashes. Warm and dry, no erythematous areas Neurological: Grossly neurologically intact, has generalized weakness, Normal Speech, Sensation Intact Lymphatic: Lymph nodes Cervical and Axillary not palpable. IVs and Medications Medications Reviewed: Medications were reviewed in detail Lab and Diagnostics Result Diagram: 01/22/17 0640 01/22/17 0640 X-Rays, CTs and MRIs PROCEDURE: X-RAY CHEST, TWO VIEWS ([id number]) INDICATIONS: Right pleura effusion TECHNIQUE: 2 views of the chest were acquired. COMPARISON: [facility], CR, XR CHEST 1VW (PORTABLE), 01/20/2017, 3: 20. [facility], CR, CHEST 2VW, 01/11/2012, 12:23. FINDINGS: Surgical changes and devices: Lower cervical spine fixation hardware. Stable position of left pacer. Lungs and pleura: Small bibasilar pleural effusions persist as well as bibasilar airspace opacities, right greater than left. No pneumothorax. Mediastinum: Mediastinal contours are normal. Heart size is normal. Bones and chest wall: No suspicious bony abnormalities. Soft tissues appear unremarkable. IMPRESSION: 1. Persistent small basal pleural effusions and airspace opacities consistent with compressive atelectasis and/or pneumonia. 2. Mild gaseous distention of several small bowel loops within the left upper quadrant. Recommend clinical correlation and if indicated acute abdominal series could be performed to further characterize the bowel gas pattern. Dictated by: Artie BROWN Interpreted: Alondra Head MD on 01/21/2017 at 8:55 Cardiac Echo Impressions Interpretation Summary The left ventricle is normal in size. Left ventricular wall thickness is mildly increased. Left ventricular systolic function is normal without focal wall motion abnormalities. The ejection fraction is estimated to be 55-60%. There has been no significant change since the previous study. The right ventricle is normal size. There is a pacemaker lead in the right ventricle. Right ventricular systolic function is borderline reduced. The right ventricular systolic pressure is estimated at 47 mmHg assuming a right atrial pressure of 15 mm Hg. Comparison with the previous study is not possible because this was unable to be assessed on the previous study. The left atrium is severely dilated. Right atrial size is normal. The aortic valve is moderately calcified. The peak aortic velocity is 3.2 m/sec. The peak aortic velocity on the previous exam was 2.70 m/sec. The aortic valve mean gradient is 24 mmHg. The calculated aortic valve area is 1.0 cm2. There is moderate aortic stenosis. There is no other significant valvular heart disease. The ascending aorta is mildly enlarged. 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 Present on admission Multifactorial but likely caused by worsening diastolic CHF due to non compliance with dialysis sessions. Differential diagnosis includes Community acquired pneumonia as well as symptomatic anemia. Chest X ray showed pulmonary effusion in the right lung base, unclear if there are infiltrates. - treat underlying cause (see below) # Endstage Renal disease with missed dialysis and fluid overload. Present on admission due to Hypertensive Nephrosclerosis. Schedule is Tue,Tue, Tuesday and Tuesday - Continue home Lasix, Renvela, Sensipar - Consulted nephrology for inpatient dialysis. 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 No evidence of acute blood loss anemia - will transfuse PRBC today 01/21 - Nephrology will continue with Procrit -Endoscopy and colonoscopy planned for today #Complicated UTI, acute -Urinalysis consistent with pyuria. Urine culture > 100,000 GNRs -Started Levaquin 250 every 48h after dialysis # Acute on chronic Diastolic CHF. Present on admission Due to fluid overload due to missed ultra filtration with dialysis. Possible non compliance with medications BNP significantly elevated from past levels - Lasix 60 mg IV x 1 - Daily weights,I/O - continue Atorvastatin - echocardiogram a above # Acute Hyponatremia. Present on admission Cause due heart failure and carries poor prognosis - treatment will be to treat heart failure # Chronic Atrial Fibrillation Patient rate controlled without medications at baseline. HR in low 100's, increased Cardizem from 180 daily to 240 daily -not a candidate for anticoagulation due to history of bleeding. Continue aspirin - monitor on telemetry # Gout, continue allopurinol # JAMIE not on CPAP, address outpatient # Sick Sinus Syndrome s/p PPM,stable -Pacemaker pacing inappropriately on T waves and PVCs. Interrogation requested to Flare Code - Acetaminophen as needed for mild pain/fever/headache - Bowel regimen as needed - Antiemetic as needed Patient admitted under inpatient status with expected length of stay > 2 midnights for severity of present symptoms, complexities of treatment plan and risk for adverse event Disposition: Possible discharge tomorrow pending endoscopy and colonoscopy . VTE Mechanical Devices: Intermittant Pneumatic CD Resuscitation Status: CPR: Attempt Resuscitation Jose Alberto Benz MD January 22, 2017 10:30
--- NOTE | 2017-01-22 10:50 | PCM.PNNEPH ---
Subjective Date of Service January 22, 2017 Subjective The patient feels considerably better following 2 units of blood. He is scheduled to have follow-up for endoscopy later today. Otherwise he states that he is feeling much better and his breathing considerably 0. His appetite is good and he denies any nausea, vomiting, or diarrhea. Exam Vital Signs Vital Sign - Last Date Time Temp Pulse Resp B/P Pulse Ox O2 Delivery O2 Flow Rate FiO2 01/22/17 09:15 36.8 102 20 118/66 96 Room Air 01/21/17 23:57 2.00 Intake and Output 01/21/17 01/21/17 01/22/17 Cumulative From/Thru 15:00 23:00 07:00 01/20/17 02:50 - 01/22/17 04:19 Intake Total 800 ml 1050 ml 1150 ml 4790 ml Output Total 3800 ml 900 ml 200 ml 9575 ml Balance -3000 ml 150 ml 950 ml -4785 ml Intake Oral 1000 ml 1150 ml 3880 ml IV Total 100 ml 50 ml 210 ml Packed Cells 700 ml 700 ml Output Urine Total 100 ml 200 ml 975 ml Stool Total 800 ml 800 ml Ultrafiltrate 3800 ml 7800 ml # Bowel Movements 4 8 Exam Neck is supple without adenopathy, thyromegaly, or jugular venous distention. Lungs were considerably clear without any wheezes noted. There were no rales or rhonchi. Heart is regular the small systolic murmur. Abdomen soft without any tenderness rebound guarding masses or hepatosplenomegaly. Extremities do not show any evidence of any clubbing, cyanosis, or edema. Andra is good. Lab and Diagnostics Result Diagram: 01/22/17 0640 01/22/17 0640 X-Rays, CTs and MRIs PROCEDURE: X-RAY CHEST, TWO VIEWS ([id number]) INDICATIONS: Right pleura effusion TECHNIQUE: 2 views of the chest were acquired. COMPARISON: [facility], CR, XR CHEST 1VW (PORTABLE), 01/20/2017, 3: 20. [facility], CR, CHEST 2VW, 01/11/2012, 12:23. FINDINGS: Surgical changes and devices: Lower cervical spine fixation hardware. Stable position of left pacer. Lungs and pleura: Small bibasilar pleural effusions persist as well as bibasilar airspace opacities, right greater than left. No pneumothorax. Mediastinum: Mediastinal contours are normal. Heart size is normal. Bones and chest wall: No suspicious bony abnormalities. Soft tissues appear unremarkable. IMPRESSION: 1. Persistent small basal pleural effusions and airspace opacities consistent with compressive atelectasis and/or pneumonia. 2. Mild gaseous distention of several small bowel loops within the left upper quadrant. Recommend clinical correlation and if indicated acute abdominal series could be performed to further characterize the bowel gas pattern. Dictated by: Artie Carmona Perla Interpreted: Alondra Head MD on 01/21/2017 at 8:55 Cardiac Echo Impressions Interpretation Summary The left ventricle is normal in size. Left ventricular wall thickness is mildly increased. Left ventricular systolic function is normal without focal wall motion abnormalities. The ejection fraction is estimated to be 55-60%. There has been no significant change since the previous study. The right ventricle is normal size. There is a pacemaker lead in the right ventricle. Right ventricular systolic function is borderline reduced. The right ventricular systolic pressure is estimated at 47 mmHg assuming a right atrial pressure of 15 mm Hg. Comparison with the previous study is not possible because this was unable to be assessed on the previous study. The left atrium is severely dilated. Right atrial size is normal. The aortic valve is moderately calcified. The peak aortic velocity is 3.2 m/sec. The peak aortic velocity on the previous exam was 2.70 m/sec. The aortic valve mean gradient is 24 mmHg. The calculated aortic valve area is 1.0 cm2. There is moderate aortic stenosis. There is no other significant valvular heart disease. The ascending aorta is mildly enlarged. Plan Impression Impression #1 end-stage renal disease dialysis dependent #2 hypertension with hypertensive heart disease and hypertensive nephrosclerosis #3 chronic interstitial nephritis number for acute complicated cystitis 5 asthma Recommendations #1 awaiting GIs input all. Since this evaluation is completed and the patient is stable he can be discharged. Will Ivey DO January 22, 2017 10:50
[2017-01-22] MEDS ORDERED: Propofol 10,000 mCg/mL 20 mL Inj ONE (11:09)
[2017-01-22] MEDS ORDERED: fentaNYL-PF 50 mCg/mL 2 mL Inj ONE (11:09)
--- NOTE | 2017-01-22 13:00 | NUR ---
Off floor Pt taken to endoscopy for procedures.
[2017-01-22] MEDS ORDERED: Lactated Ringer's 1,000 ML IV SCH (13:25)
[2017-01-22] MEDS ORDERED: Ondansetron 2 mg/mL 2 mL Inj IVPUSH PRN (13:25)
[2017-01-22] MEDS ORDERED: MetoCLOpramide 5 mg/mL 2 mL Inj IVPUSH PRN (13:25)
--- NOTE | 2017-01-22 13:26 | PCM.ANEP1 ---
Post Anesthesia PACU Phase 1 Assessment Vital Signs Vital Signs Date Time Temp Pulse Resp B/P Pulse Ox O2 Delivery O2 Flow Rate FiO2 01/22/17 13:00 102 14 135/83 96 Room Air 01/22/17 09:15 36.8 102 20 118/66 96 Room Air 01/22/17 09:12 99 01/22/17 06:36 37.0 103 18 115/73 96 Room Air 01/22/17 05:54 103 Anesthetic Administered: MAC Level of Alertness: Awake, talking POON's with Equal Strength: Yes Pain: No Pain Scale Score: 5 Nausea or Vomiting: No CV Function & Hydration Stable: No Airway Device: Oxygen Delivery: Nasal Cannula Lungs: Clear to Auscultation, Normal Air Movement PACU Phase 2 Assessment Complications: No Follow up Care: No Patient Instructions Provided: N/A Abdiaziz Monk MD January 22, 2017 13:26
[2017-01-22] MEDS: Diltiazem CD 240 mg ER24 Capsule PO SCH (14:20)
--- NOTE | 2017-01-22 15:52 | ENDO ---
[address] [address] ENDOSCOPY PROCEDURE PATIENT: JOSE LUIS HASTINGS I : 1940 MR#: [id number] ADMIT: 01/20/2017 JOB ID: [id number] DATE OF SERVICE: 01/22/2017 PROCEDURE: Esophagogastroduodenoscopy, biopsy and colonoscopy. PREOPERATIVE DIAGNOSIS(ES): Anemia. POSTOPERATIVE DIAGNOSES: 1. Normal upper endoscopy,s/p biopsy. 2. Normal colonoscopy. ANESTHESIA: Monitored anesthesia care. COMPLICATION: None. BLOOD LOSS: Minimal. DESCRIPTION OF PROCEDURE: After risks and benefits explained to the patient, informed consent was obtained. After anesthesia administered, upper endoscope was inserted in the mouth, intubated into the esophagus, stomach, second portion of duodenum. Mucosa carefully examined. After procedure was done, the scope was withdrawn and the procedure terminated. Colonoscope was inserted from the rectum to the terminal ileum. Mucosa carefully examined. Prep of the patient was fair to suboptimal. After procedure was done, the scope withdrawn, procedure terminated. FINDINGS: Upon inspection of the esophagus, the esophagus was normal without masses, ulcers, or lesions. Z-line located 40 cm from incisors. Upon entering the stomach, the stomach was normal without masses, ulcers, or lesions. Retroflexion was normal. Duodenal bulb, first and second portion were normal. Biopsies taken in duodenum. Upon inspection of the anus, no masses, hemorrhoids, ulcers, or fissures were seen. Throughout the entire examination, there was large amount of liquid stool that was seen which was flushed and suctioned throughout. No polyps or masses were seen. Intubation at terminal ileum appeared normal. Retroflexion was normal. IMPRESSION: 1. Normal colonoscopy. 2. Normal upper endoscopy with s/p biopsy. RECOMMENDATION: 1. Await pathology results. 2. Okay to start clear liquid diet. Advance as tolerated. 3. Repeat colonoscopy in 3-5 years given the suboptimal prep for colorectal cancer screening. 4. Okay to discharge home today from a gastrointestinal standpoint. [facility] MEDICAL CENTERLindsey
[2017-01-22] MEDS: guaiFENesin 20 mg/mL 10 mL Syrup PO PRN (20:14)
[2017-01-22] MEDS: HYDROcodone-APAP 10-325 mg PO PRN (21:39)
[2017-01-23 05:32] VITALS: PULSE 106
--- NOTE | 2017-01-23 05:36 | NUR ---
Shift note uneventful night with the exception of being awaken by leg cramping this is not new per patient since having surgery on it declined any medical intervention
[2017-01-23 06:13] VITALS: BP 114/66; PULSE 91; RESP 18; O2SAT 97
[2017-01-23] MEDS: Fluticasone 100 mCg Inhaler INHALATION SCH (08:06)
[2017-01-23] MEDS: Pantoprazole 20 mg ER24 Tablet PO SCH (08:07)
[2017-01-23] MEDS: Vitamin B Complex/Vit C Tablet PO SCH (08:08)
--- NOTE | 2017-01-23 08:13 | PCM.DIMED ---
Discharge Instructions Date of Service January 23, 2017 Dates of Hospitalization January 20, 2017 at 05:08 Discharge Diagnosis Discharge Diagnosis # Dyspnea, acute. Present on admission Multifactorial but likely caused by worsening diastolic CHF due to non compliance with dialysis sessions. as well as symptomatic anemia. # Endstage Renal disease with missed dialysis and fluid overload. Present on admission # chronic anemia #Complicated UTI, acute # Acute on chronic Diastolic CHF. Present on admission # Chronic Atrial Fibrillation # Gout, # JAMIE not on CPAP, # Sick Sinus Syndrome s/p PPM,stable Test Results Test Results endoscopy and colonoscopy unrevealing Diet Discharge Diet: Renal Diet Activity Discharge Activity: Limited until seen by PCP Call your provider Call your provider for: Fever or Chills, Shortness of breath, Bleeding, Chest pain, Vomitting, Excessive diarrhea, Weakness (unilateral) Patient Instructions Patient Instructions You were hospitalized due to dyspnea due to fluid overload .Breathing improved with dialysis .You were also noted to have UTI . Treated with levaquin. Please take levaquin 1 tablet on Tuesday after dialysis which you have at home . You underwent endoscopy and colonoscopy to look for source of anemia.Finding is normal. Follow-up Provider: Siddharth Torres MD Follow-up with PCP in: 1 week Provider: Will Ivey DO Follow-up in: 1 week Jose Alberto Benz MD January 23, 2017 08:13
[2017-01-23] MEDS ORDERED: DILT240C85 PO (08:15)
--- NOTE | 2017-01-23 08:39 | PCM.PNSURG ---
Subjective Date of Service: January 23, 2017 Date of Service: January 23, 2017 Visit Information: Subjective: s/p egd colon yesterday. hb 9.2 this am. no overt signs gi bleed. pt sitting up eating breakfast Postop General: No Complaints Objective Vital Sign- Last 8 Hours Date Time Temp Pulse Resp B/P Pulse Ox O2 Delivery O2 Flow Rate FiO2 01/23/17 06:13 36.7 91 18 114/66 97 Room Air 01/23/17 05:32 106 Intake and Output- Last 8 Hour 01/23/17 Cumulative From/Thru 07:00 01/20/17 02:50 - 01/23/17 06:14 Intake Total 1680 ml 7870 ml Output Total 100 ml 82063 ml Balance 1580 ml -2205 ml Intake Oral 1680 ml 6900 ml IV Total 270 ml Packed Cells 700 ml Output Urine Total 100 ml 1175 ml Stool Total 1100 ml Ultrafiltrate 7800 ml # Bowel Movements 1 9 General: Oriented X3 Neck: Supple Lungs: Clear to Auscultation Heart: Exam Unremarkable Abdomen: Benign, Soft, Non-tender, Non-distended, Normoactive bowel tones Extremities: Distal Pulses Palpable Result Diagram: 01/22/17 0640 01/22/17 0640 Assessment & Plan Impression 76-year-old gentleman with CHF and pacemaker as well as end-stage renal disease who presented in fluid overload after missing dialysis due to pneumonia treated as an outpatient. On admission the patient was noted to have a sparing anemia with a hemoglobin of 7.2 and mcv of 107, which is decreased was baseline hemoglobin of approximately 9. Initially this was thought to be caused by a B12 /folate deficiency but the patient's history does not immediately support this idea. Patient has no recent alcohol consumption per his report and eats a balanced meal. On exam the patient also does not have neurological findings. Patient also presents with night sweats which could be concern for undiagnosed blood dyscrasia. In any case, a GI source is still within the differential, and if there is significant findings of gastritis this might help help to explain macrocytosis. s/p egd/colon 01/22/2017- IMPRESSION: 1. Normal colonoscopy. 2. Normal upper endoscopy with s/p biopsy. RECOMMENDATION: 1. Await pathology results. 2. Okay to start clear liquid diet. Advance as tolerated. 3. Repeat colonoscopy in 3-5 years given the suboptimal prep for colorectal cancer screening. 4. Okay to discharge home today from a gastrointestinal standpoint. Recommendations -ok d/c home today from gi standpoint - await bx results will sign off Problems: Resuscitation Status: CPR: Attempt Resuscitation George Spence MD January 23, 2017 08:39
--- NOTE | 2017-01-23 09:01 | NUR ---
Social Work: Discharge Data: Pt is on day 3 of hospitalization. EMR reviewed. D/C orders are in. No d/c planning needs at this time. SENIOR TAX ANALYST will continue to follow if needs arise. Assessment: Pt who is independent at baseline. Plan: Pt will d/c home via POV today. [facility] referral previously sent. Pt declining HH services. No d/c planning needs at this time. SENIOR TAX ANALYST will continue to follow if needs arise. AMARJIT Guzman
--- NOTE | 2017-01-23 09:18 | PCM.DC.MED ---
Discharge Summary Date of Service January 23, 2017 Dates of Hospitalization Date of Hospital Admission January 20, 2017 at 05:08 Date of Discharge: January 23, 2017 Providers: Admitting Physician: Boaz Rai MD Primary Care Physician: Siddharth Torres MD Attending Physician: Boaz Rai MD Diagnosis at Time of Discharge Diagnosis at Time of Discharge # Dyspnea, acute. Present on admission Multifactorial but likely caused by worsening diastolic CHF due to non compliance with dialysis sessions. as well as symptomatic anemia. # Endstage Renal disease with missed dialysis and fluid overload. Present on admission # chronic anemia #Complicated UTI, acute # Acute on chronic Diastolic CHF. Present on admission # Chronic Atrial Fibrillation # Gout, # JAMIE not on CPAP, # Sick Sinus Syndrome s/p PPM,stable Consultations GI Dr Spence nephrology Dr Ivey Procedures XRay, CTs & MRIs PROCEDURE: X-RAY CHEST, TWO VIEWS ([id number]) INDICATIONS: Right pleura effusion TECHNIQUE: 2 views of the chest were acquired. COMPARISON: [facility], CR, XR CHEST 1VW (PORTABLE), 01/20/2017, 3: 20. [facility], CR, CHEST 2VW, 01/11/2012, 12:23. FINDINGS: Surgical changes and devices: Lower cervical spine fixation hardware. Stable position of left pacer. Lungs and pleura: Small bibasilar pleural effusions persist as well as bibasilar airspace opacities, right greater than left. No pneumothorax. Mediastinum: Mediastinal contours are normal. Heart size is normal. Bones and chest wall: No suspicious bony abnormalities. Soft tissues appear unremarkable. IMPRESSION: 1. Persistent small basal pleural effusions and airspace opacities consistent with compressive atelectasis and/or pneumonia. 2. Mild gaseous distention of several small bowel loops within the left upper quadrant. Recommend clinical correlation and if indicated acute abdominal series could be performed to further characterize the bowel gas pattern. Dictated by: Artie Carmona RRPerla Interpreted: Alondra Head MD on 01/21/2017 at 8:55 Cardiac Echo Impression Interpretation Summary The left ventricle is normal in size. Left ventricular wall thickness is mildly increased. Left ventricular systolic function is normal without focal wall motion abnormalities. The ejection fraction is estimated to be 55-60%. There has been no significant change since the previous study. The right ventricle is normal size. There is a pacemaker lead in the right ventricle. Right ventricular systolic function is borderline reduced. The right ventricular systolic pressure is estimated at 47 mmHg assuming a right atrial pressure of 15 mm Hg. Comparison with the previous study is not possible because this was unable to be assessed on the previous study. The left atrium is severely dilated. Right atrial size is normal. The aortic valve is moderately calcified. The peak aortic velocity is 3.2 m/sec. The peak aortic velocity on the previous exam was 2.70 m/sec. The aortic valve mean gradient is 24 mmHg. The calculated aortic valve area is 1.0 cm2. There is moderate aortic stenosis. There is no other significant valvular heart disease. The ascending aorta is mildly enlarged. Invasive Procedures DATE OF SERVICE: 01/22/2017 PROCEDURE: Esophagogastroduodenoscopy, biopsy and colonoscopy. PREOPERATIVE DIAGNOSIS(ES): Anemia. POSTOPERATIVE DIAGNOSES: 1. Normal upper endoscopy,s/p biopsy. 2. Normal colonoscopy. ANESTHESIA: Monitored anesthesia care. COMPLICATION: None. BLOOD LOSS: Minimal. DESCRIPTION OF PROCEDURE: After risks and benefits explained to the patient, informed consent was obtained. After anesthesia administered, upper endoscope was inserted in the mouth, intubated into the esophagus, stomach, second portion of duodenum. Mucosa carefully examined. After procedure was done, the scope was withdrawn and the procedure terminated. Colonoscope was inserted from the rectum to the terminal ileum. Mucosa carefully examined. Prep of the patient was fair to suboptimal. After procedure was done, the scope withdrawn, procedure terminated. FINDINGS: Upon inspection of the esophagus, the esophagus was normal without masses, ulcers, or lesions. Z-line located 40 cm from incisors. Upon entering the stomach, the stomach was normal without masses, ulcers, or lesions. Retroflexion was normal. Duodenal bulb, first and second portion were normal. Biopsies taken in duodenum. Upon inspection of the anus, no masses, hemorrhoids, ulcers, or fissures were seen. Throughout the entire examination, there was large amount of liquid stool that was seen which was flushed and suctioned throughout. No polyps or masses were seen. Intubation at terminal ileum appeared normal. Retroflexion was normal. IMPRESSION: 1. Normal colonoscopy. 2. Normal upper endoscopy with s/p biopsy. RECOMMENDATION: 1. Await pathology results. 2. Okay to start clear liquid diet. Advance as tolerated. 3. Repeat colonoscopy in 3-5 years given the suboptimal prep for colorectal cancer screening. 4. Okay to discharge home today from a gastrointestinal standpoint. George Spence MD 01/22/17 1329 Brief History per HPI Jaswant Perez is a 76 y/o male with Chronic diastolic CHF, atrial fibrillation not on anticoagulation, hyperlipidemia, sick sinus syndrome status post pacemaker, hypertension, Endstage Renal disease on dialysis who came to [facility] emergency room due to shortness of breathe onset today. The patient was diagnosed with pneumonia a few days ago by his PCP Dr. Torres and has been on Levaquin for 2 days. He has been having non productive cough. He missed his dialysis appointment yesterday because he was feeling unwell and was so tired he could not get out of bed. Associated symptoms includes peripheral edema, night time sweats. Pt denies Chest pain, no nausea or vomiting. Denies any sick contacts at home He is compliant with all his medications. Rarely misses any antibiotics. He was hospitalized for pneumonia 08/15/16-08/29/16. Case discussed with Dr Echols, plan to admit patient for dialysis. Labs showed no hyperkalemia or acidosis. Oxygen supplemented. Hospital Course Jaswant Perez is a 76 y/o male with Chronic diastolic CHF, atrial fibrillation not on anticoagulation, hyperlipidemia, sick sinus syndrome status post pacemaker, hypertension, Endstage Renal disease on dialysis who came to [facility] emergency room due to shortness of breathe # Dyspnea, acute. Present on admission Multifactorial but likely caused by worsening diastolic CHF due to non compliance with dialysis sessions as well as symptomatic anemia. - treat underlying cause (see below) # Endstage Renal disease with missed dialysis and fluid overload. Present on admission due to Hypertensive Nephrosclerosis. Schedule is Tue,Tue, Tuesday and Tuesday - Continue home Lasix, Renvela, Sensipar - Consulted nephrology for inpatient dialysis. 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 No evidence of acute blood loss anemia -transfused PRBC on 01/21 - Nephrology will continue with Procrit -Endoscopy and colonoscopy unrevealing #Complicated UTI, acute -Urinalysis consistent with pyuria. Urine culture > 100,000 GNRs -Started Levaquin 250 every 48h after dialysis. Advised patient to take one more dose of Levaquin on Tuesday after dialysis( patient had recent Levaquin prescription) # Acute on chronic Diastolic CHF. Present on admission Due to fluid overload due to missed ultra filtration with dialysis. Possible non compliance with medications BNP significantly elevated from past levels - Lasix 60 mg IV x 1. Continue home Lasix 80 mg by mouth twice a day - continue Atorvastatin - echocardiogram as above # Acute Hyponatremia. Present on admission Cause due heart failure and carries poor prognosis - treatment will be to treat heart failure # Chronic Atrial Fibrillation HR in low 100's, increased Cardizem from 180 daily to 240 daily -not a candidate for anticoagulation due to history of bleeding. Continue aspirin # Gout, continue allopurinol # JAMIE not on CPAP, address outpatient # Sick Sinus Syndrome s/p PPM,stable Disposition: discharge home . Exam Vital Signs (Last) Date Time Temp Pulse Resp B/P Pulse Ox O2 Delivery O2 Flow Rate FiO2 01/23/17 06:13 36.7 91 18 114/66 97 Room Air 01/22/17 13:25 3 Exam General: Alert, Oriented X3, Cooperative, No acute Distress Eyes: PERRLA, Scleral Anicteric Mouth: Mouth Normal, Mucous Membranes Moist/Spearman Neck: Supple, no Thyromegaly, trachea central. Chest & Lungs: rales at bases right more then left Cardiovascular: Normal S1, Normal S2, No Rubs/Gallops, Regular Rate/Rhythm, systolic Murmur noted 2/6 grade Pulses: Radial (present and equal), Dorsalis Pedi (present and equal) Abdomen: Soft, Non-tender, Non-distended, Normoactive bowel tones. Suprapubic catheter in place. Musculoskeletal: Unremarkable. Normal range of motion, no swollen or erythematous joints Extremities: 3+ pitting edema, no cyanosis, no clubbing. Skin: No rashes. Warm and dry, no erythematous areas Neurological: Grossly neurologically intact, has generalized weakness, Normal Speech, Sensation Intact Lymphatic: Lymph nodes Cervical and Axillary not palpable. Test 01/20/17 02:35 01/20/17 05:00 01/20/17 10:30 01/20/17 19:43 Prothrombin Time 13.6sec (8.1-12.5) Prothromb Time International Ratio 1.26ratio Magnesium Level 1.9mg/dL (1.6-2.6) Iron Level ug/dL (35-150) Total Iron Binding Capacity ug/dL (250-450) Percent Iron Saturation %sat (15-50) Unsaturated Iron Binding ug/dL Pro-B-Type Natriuretic Peptide 48932nr/mL (0-486) Lipase 15U/L (13-60) Hold Lin Top Tube Received (Received) Urine Color Yellow (YELLOW) Urine Appearance Cloudy (CLEAR,HAZY) Urine pH 7.0 (5.0-8.0) Urine Specific [place] 1.011 (1.003-1.035) Urine Protein 30mg/dL (NEG,TRACE) Urine Glucose (UA) Negativemg/dL (NEGATIVE) Urine Ketones Negativemg/dL (NEGATIVE) Urine Occult Blood Small (NEGATIVE) Urine Nitrite Negative (NEGATIVE) Urine Bilirubin Negative (NEGATIVE) Urine Urobilinogen Normalmg/dL (NORMAL) Urine Leukocyte Esterase Large (NEGATIVE) Urine RBC 3-10/hpf (0-2) Urine WBC Packed/hpf (0-5) Urine Epithelial Cells Occasional/hpf (NONE-MOD) Urine Crystals None seen (NONE SEEN) Urine Bacteria Many/hpf (NONE-FEW) Urine Hyaline Casts None/lpf (NONE) Urine Granular Casts None seen (NONE SEEN) Urine Waxy Casts None seen (NONE SEEN) Urine Red Blood Cell Casts None seen (NONE SEEN) Urine White Blood Cell Casts None seen (NONE SEEN) Urine Mucus None seen (None Seen) Urine Trichomonas None seen (NONE SEEN) Urine Yeast None (NONE SEEN) Urine Culture Reflexed Indicated Hepatitis B Surface Antigen Negative (Negative) Hepatitis B Surface Antibody Reactive (.) Hepatitis B Core Total Antibody Positive (Negative) Hepatitis C Antibody <0.1s/co ratio (0.0-0.9) Hematology Comments Rbc Test 01/21/17 06:00 01/21/17 10:00 01/22/17 06:40 Phosphorus Level 4.5mg/dL (2.5-4.9) Vitamin B12 Level 1317pg/mL (211-946) Folate 17.8ng/mL (>3.0) Procalcitonin 1.95ng/mL (0.00-0.08) HIV (1&2) Ag and Ab, 4th Generation Non reactive (Non Reactive) White Blood Count 3.8th/mm3 (3.8-10.1) Red Blood Count 2.69mil/mm3 (4.40-5.80) Hemoglobin 9.2g/dL (13.8-17.2) Hematocrit 27.4% (41.0-50.0) Mean Corpuscular Volume 101.9fL (81-100) Mean Corpuscular Hemoglobin 34.2pg (27.0-35.0) Mean Corpuscular Hemoglobin Concent 33.6% (32.0-37.0) Red Cell Distribution Width 25.1% (12.3-15.4) Platelet Count 296bil/L (150-400) Neutrophils (%) (Auto) 56.2% (40-74) Lymphocytes (%) (Auto) 28.0% (14-46) Monocytes (%) (Auto) 14.5% (4-12) Eosinophils (%) (Auto) 0.8% (0-5) Basophils (%) (Auto) 0% (0-3) Sodium Level 134mEq/L (134-144) Potassium Level 3.5mEq/L (3.5-5.2) Chloride Level 91mEq/L (97-108) Carbon Dioxide Level 27mmol/L (18-29) Blood Urea Nitrogen 14mg/dL (8-27) Creatinine 2.30mg/dL (0.76-1.27) Estimat Glomerular Filtration Rate 30mL/min (>59) Glucose Level 112mg/dL (60-99) Calcium Level 8.8mg/dL (8.5-10.1) Total Bilirubin 1.0mg/dL (0.0-1.2) Aspartate Amino Transf (AST/SGOT) 17U/L (0-50) Alanine Aminotransferase (ALT/SGPT) 11U/L (0-44) Alkaline Phosphatase 280U/L (25-160) Total Protein 6.0g/dL (6.4-8.4) Albumin 3.8g/dL (3.4-5.0) Discharge Medications Discharge Medications Allopurinol (Allopurinol) 100 Mg Tablet 100 MG PO DAILY (Reported) Aspirin (Aspirin) 81 Mg Tablet 162 MG PO DAILY (Reported) Atorvastatin Calcium (Atorvastatin Calcium) 10 Mg Tablet 10 MG PO HS (Reported) Cinacalcet (Sensipar) 30 Mg Tablet 30 MG PO DAILY (Reported) Diltiazem ER (Cardizem CD) 240 Mg Cap.er.24h 240 MG PO DAILY Prescribed by: KASHIF MARTINES MD Fluoxetine (Fluoxetine) 20 Mg Capsule 20 MG PO BID (Reported) Furosemide (Furosemide) 80 Mg Tab 80 MG PO BID (Reported) Levofloxacin (Levofloxacin) 750 Mg Tablet 750 MG PO DAILY Prescribed by: CONSTANCE CAUSEY DO Multivitamin (Multi Vitamin Daily) 1 Each Tablet 1 EACH PO DAILY (Reported) Omeprazole (Omeprazole) 20 Mg Capsule.dr 20 MG PO BID (Reported) Potassium Chloride ER (Potassium Chloride ER) 10 Meq Tablet 10 MEQ PO BID ( Reported) TAKE WITH FOOD Sevelamer Carbonate (Renvela) 800 Mg Tablet 800 MG PO TIDWM (Reported) Vit B Comp/C/FA/Iron/Vit E (Vitamin B Complex Tablet) 1 Each Tablet 1 EACH PO DAILY (Reported) As needed Benzonatate (Benzonatate) 100 Mg Capsule 100 MG PO Q4H PRN PRN For Cough Prescribed by: CONSTANCE CAUSEY DO Diphenoxylate/Atropine (Diphenoxylate-Atrop 2.5-0.025) 2.5 Mg Tablet 1 EACH PO QID PRN PRN For Diarrhea or Loose Stool (Reported) Fluticasone Propionate (Fluticasone Propionate Nasal) 16 Gm [place].susp 2 SPRAY NS DAILY PRN PRN For Congestion (Reported) Hydrocodone-Acetaminophen 10-325 mg (Hydrocodone-Acetaminophen 10-325 mg) 1 Tab Tablet 1 EA PO QID PRN PRN For Pain (Reported) Followup Plan Disposition: Home Discharge Diet: Renal Diet Discharge Activity: Limited until seen by PCP Patient Instructions You were hospitalized due to dyspnea due to fluid overload .Breathing improved with dialysis .You were also noted to have UTI . Treated with levaquin. Please take levaquin 1 tablet on Tuesday after dialysis which you have at home . You underwent endoscopy and colonoscopy to look for source of anemia.Finding is normal. Follow-up Provider: Siddharth Torres MD Follow-up with PCP in: 1 week Provider: Will Ivey DO Follow-up in: 1 week Time spent 35 minutes copies to: Will Ivey DO; Siddharth Torres MD, Melaku MD January 23, 2017 09:18
[2017-01-23 09:37] VITALS: BP 107/71; PULSE 93; RESP 16; O2SAT 97
[2017-01-23] MEDS: Potassium Citrate ER 10 mEq ER24 Tablet PO SCH (09:39)
[2017-01-23] MEDS: Diltiazem CD 240 mg ER24 Capsule PO SCH (10:51)
--- NOTE | 2017-01-23 11:10 | NUR ---
Discharge Pt discharged from unit, accompanied by his and niece. Pt given information on signs to watch for and follow up. Pt given prescription for new dose of diltiazem. Pt is aware of dialysis appointment scheduled for tomorrow. No further questions or concerns at this time. Taken off the floor in a wheelchair with his belongings.
--- NOTE | 2017-01-26 16:14 | PATH ---
SURGICAL PATHOLOGY Attending Physician:George Spence MD CASE STATUS: Signed Out PATIENT NAME: JOSE LUIS HASTINGS I. PID: [id number] : 1940 DATE COLLECTED:01/22/2017 00:00 SPECIMEN: Duodenum, Biopsy CLINICAL HISTORY: 1. Duodenum Biopsy FINAL DIAGNOSIS: Duodenal Biopsy: Duodenal mucosa with no diagnostic abnormality. Negative for active inflammation, features of sprue, dysplasia, and malignancy. ICD10: K29.7 GROSS DESCRIPTION: The specimen is received in formalin, labeled with the patient's name, sublabeled as duodenum biopsy and consists of multiple fragments of beard-white rubbery glistening semi-translucent tissue (0.5 x 0.3 x 0.1 cm in aggregate). Section code: (A) tissue. Specimen entirely submitted. 01/23/17 ICD-9 CODES: CPT CODES: 1: 84310 Electronically Signed Out Dolly Solis MD [facility] Pathology [facility] [address], [place] [address] Technical component performed at [facility], [address] [place] [address] Ave[address], [place], [address]
== END 2017-01-23 11:10 | disposition home or self-care (01) | DRG 291 ==
LOC: SED 02:15 → MOC 05:08 → OBSVTOIN 05:08
PROVIDERS: ADMIT Hospitalist; ATTEND Hospitalist
PROC: 5A1D60Z (ICD-10-PCS; 2017-01-20)
PROC: 30233N1 Transfusion of Nonautologous Red Blood Cells into Peripheral Vein, Percutaneous Approach (ICD-10-PCS; 2017-01-21)
PROC: 0DB98ZX Excision of Duodenum, Via Natural or Artificial Opening Endoscopic, Diagnostic (ICD-10-PCS; principal; 2017-01-22 11:30)
PROC: 0DJD8ZZ Inspection of Lower Intestinal Tract, Via Natural or Artificial Opening Endoscopic (ICD-10-PCS; 2017-01-22 11:30)
DX: I13.2 Hypertensive heart and chronic kidney disease with heart failure and with stage 5 chronic kidney disease, or end stage renal disease (principal); N18.6 End stage renal disease; I50.33 Acute on chronic diastolic (congestive) heart failure; N39.0 Urinary tract infection, site not specified; E87.1 Hypo-osmolality and hyponatremia; G47.33 Obstructive sleep apnea (adult) (pediatric); E78.5 Hyperlipidemia, unspecified; R33.8 Other retention of urine; I48.2 Chronic atrial fibrillation; D63.1 Anemia in chronic kidney disease; M10.9 Gout, unspecified; G89.4 Chronic pain syndrome; J45.909 Unspecified asthma, uncomplicated; Z91.14 Patient's other noncompliance with medication regimen; Z87.891 Personal history of nicotine dependence; Z98.84 Bariatric surgery status; Z99.2 Dependence on renal dialysis; Z88.0 Allergy status to penicillin; Z79.82 Long term (current) use of aspirin; Z95.0 Presence of cardiac pacemaker